=== PATIENT | male | born 1945 | race Caucasian/White ===

== ENCOUNTER → 2018-01-10 12:23 | Outpatient (CLI) | payer MEDICARE, SELFPAY ==
--- NOTE | 2018-01-10 12:26 | CT_ITS ---
STUDY: CT CHEST WITH CONTRAST REASON FOR EXAM: Male, 72 years old. LUNG CA-CHEMO CHECK UP, COPD, EMPHYSEMA, HEART STENTS, HTN RADIATION DOSAGE (If Supplied By Facility): CTDIvol = ( 12.4 ) mGy, DLP = ( 449.08 ) mGycm TECHNIQUE: Transaxial imaging was performed following intravenous administration of 100 ml of Isovue 300 contrast material. Individualized dose optimization techniques were used for this CT. COMPARISON: 10.08.17 FINDINGS: There is a 9.1 mm left upper lobe nodule. There is a 4.9 mm left lower lobe nodule. There are emphysematous changes of the lungs with emphysematous blebs. There is no demonstrated pleural abnormality. There are calcifications of the coronary arteries. Normal mediastinum. Normal hilar regions. Normal enhanced pulmonary arteries. There is atherosclerotic tortuosity of the aortic arch and descending thoracic aorta. There are multi-level degenerative changes of the thoracic spine. There is a lytic lesion in the left humeral head. This appears stable. CT/Chest WITH Contrast IMPRESSION: Stable pulmonary nodules. Stable lesion in the left humerus. Electronically Signed: Patel Nichols MD at 22:41 EDT , Service support ,
[2018-01-10 12:56] LABS: CREATININE FINGERSTICK 0.6 mg/dL (0.70-1.30); EGFR FINGERSTICK > 60.0000 mL/min (>60)
== END ==
PROVIDERS: Family Provider Family Medicine; PCP Family Medicine; Visit Provider Internal Medicine Medical Oncology
DX: C34.12 Malignant neoplasm of upper lobe, left bronchus or lung (principal)
CPT/HCPCS: 71260; Q9967

== ENCOUNTER → 2018-04-09 12:23 | Outpatient (CLI) | payer MEDICARE, SELFPAY ==
--- NOTE | 2018-04-09 12:25 | CT_ITS ---
STUDY: CT CHEST/THORAX WITH CONTRAST REASON FOR EXAM: Male, 72 years old. Lung cancer follow-up. RADIATION DOSAGE (If Supplied By Facility): CTDIvol = ( 10.32 ) mGy, DLP = ( 311.39 ) mGycm TECHNIQUE: Transaxial imaging was performed following intravenous administration of 75mL ml of Isovue 300 contrast material. Multiplanar coronal and sagittal images were reformatted. Individualized dose optimization techniques were used for this CT. COMPARISON: CT chest/thorax with IV contrast January 10, 2018. FINDINGS: Extensive diffuse emphysematous changes again seen throughout the lung jones. Mildly irregular, spiculated 1.85 x 1.4 x 1.2 cm nodular density in the lateral left upper lobe on series 4 image 52, series 602 image 136 is unchanged (differences in measurements since prior study reflect interobserver variability). On review of the prior exam, I don't see the 4.9 mm nodule referred to in the left lower lobe, and no left lower lobe nodule is apparent today. There is stable pleural-parenchymal scarring in the anterior-inferior right middle lobe. There is stable scarring with nodularity both in the right posterior and posteromedial costophrenic sulcus. Borderline bronchiectasis again noted. Focally prominent peribronchial thickening seen at the posterolateral proximal branching point of the basilar right lower lobe on series 4 images 72-73. There is no demonstrated pleural abnormality. Normal heart and pericardium. There are calcifications of the coronary arteries. Normal mediastinum. Normal hilar regions. Normal enhanced pulmonary arteries. There is atherosclerotic calcification of the aortic arch, proximal brachiocephalic arteries, and descending thoracic aorta, continuing into the visualized upper abdominal aorta. There is demineralization of the thoracic spine. There are multi-level degenerative changes of the visualized cervical spine. There are mild degenerative changes of the midthoracic spine. There is stable degenerative arthrosis of the left shoulder, with lobulated, irregular ossific densities projecting in the adjacent medial soft tissues, consistent with chronic calcific bursitis. Relative lucency in the right humeral head with cortical sclerosis but endosteal scalloping is also unchanged. There is no demonstrated abnormality of the visualized upper abdomen. CT/Chest WITH Contrast IMPRESSION: Stable enhanced CT Chest examination, as described. Electronically Signed: Reji Tran MD at 13:56 EDT , Service support ,
[2018-04-09 12:36] LABS: CREATININE FINGERSTICK 0.8 mg/dL (0.70-1.30)
== END ==
PROVIDERS: Family Provider Family Medicine; PCP Family Medicine; Visit Provider Internal Medicine Medical Oncology
DX: C34.12 Malignant neoplasm of upper lobe, left bronchus or lung (principal)
CPT/HCPCS: 71260; Q9967

== ENCOUNTER → 2018-10-14 13:32 | Outpatient (CLI) | payer MEDICARE, SELFPAY ==
--- NOTE | 2018-10-14 13:42 | CT_ITS ---
HISTORY: LUNG CA EXAM/TECHNIQUE: CT Chest W/O Contrast: COMPARISON: Several previous CTs of the chest, most recent 04/09/18. FINDINGS: # of images incl. paperwork: 811 Irregular, spiculated left upper lobe nodule measures 1.8 x 1.4 x 1.2 cm, not significantly changed given differences in technique. No new nodules are evident. Extensive severe emphysema and scattered areas of mild pleural-parenchymal scarring again demonstrated. Also similar to prior is focally prominent peribronchial thickening in the right lower lobe, best seen on coronal images 175-185. Heart size remains normal. Atherosclerosis including of the coronary arteries again demonstrated. No thoracic aortic dissection. No apparent adenopathy. Calcified right hilar lymph nodes again demonstrated. No acute osseous abnormality. Moderate degenerative changes of the left shoulder with chronic calcific bursitis again demonstrated. CT/Chest without Contrast IMPRESSION: No significant change compared to previous. Unchanged left upper lobe nodule and severe emphysema. Individualized dose optimization techniques were used for this CT. at 1422 Reported and signed by: Elmer Gillis MD Electronically Signed: Elmer Gillis, at 14:21 EST Tel , Service support ,
== END ==
PROVIDERS: Family Provider Family Medicine; PCP Family Medicine; Referring Provider Internal Medicine Medical Oncology; Visit Provider Internal Medicine Medical Oncology
DX: C34.90 Malignant neoplasm of unspecified part of unspecified bronchus or lung (principal)
CPT/HCPCS: 71250

== ENCOUNTER → 2019-04-17 14:35 | Outpatient (CLI) | payer MEDICARE, SELFPAY ==
[2019-01-14 09:40] VITALS: BMI 24.0
--- NOTE | 2019-04-17 14:37 | CT_ITS ---
STUDY: CT CHEST/THORAX WITH CONTRAST REASON FOR EXAM: Male, 73 years old. Lung cancer follow-up. History of emphysema/COPD and coronary stents. RADIATION DOSAGE (If Supplied By Facility): CTDIvol = ( 10.69 ) mGy, DLP = ( 342.07 ) mGycm TECHNIQUE: Transaxial imaging was performed following intravenous administration of 100 IV Isovue 300. Multiplanar coronal and sagittal images were reformatted. Individualized dose optimization techniques were used for this CT. COMPARISON: Noncontrast CT chest October 14, 2018. FINDINGS: The lungs are hyperexpanded and emphysematous changes are again seen throughout the lung jones. There is stable focal scarring with an element of nodularity in the posterior and posterior medial periphery of the basilar right lower lobe. Lobulated and spiculated 12 x 6.5 x 17.5 mm nodule in the lateral periphery of the left upper lobe with the level of the aortopulmonary window is unchanged. Stable 5 mm calcified granuloma in the posterior medial periphery of the right upper lobe near the pleural fissure. There is no demonstrated pleural abnormality. Normal heart and pericardium. There are calcifications of the coronary arteries. Normal mediastinum. Normal hilar regions. Normal enhanced pulmonary arteries. There is stable atherosclerotic calcification of the aortic arch, proximal brachiocephalic arteries, and descending thoracoabdominal aorta. No demonstrated aneurysm. Occasional small, well-corticated vertebral endplate invaginations consistent with benign Schmorl's nodes are evident. There is stable severe osteoarthritic degenerative change of the left shoulder. Lobulated ossific densities below the shoulder joint are consistent with chronic ossific bursitis, and there is a fluid-filled bursa or distended joint capsule along the anterior margin of the left shoulder. There is no demonstrated abnormality of the visualized upper abdomen. CT/Chest WITH Contrast IMPRESSION: 1. Stable spiculated nodule in the lateral left upper lobe. 2. Hyperinflation with diffuse emphysematous changes again noted. Focal scarring in the right lung base unchanged. 3. Calcified granuloma again seen in the posterior medial right upper lobe. 4. Atherosclerotic vascular calcifications present. 5. Chronic ossific bursitis of the left shoulder, as noted. Electronically Signed: Reji Tran MD at 15:30 EDT , Service support ,
[2019-04-17 14:56] LABS: CREATININE FINGERSTICK 0.8 mg/dL (0.70-1.30); EGFR FINGERSTICK > 60.0000 mL/min (>60)
== END ==
PROVIDERS: Family Provider Family Medicine; PCP Family Medicine; Referring Provider Internal Medicine Medical Oncology; Visit Provider Internal Medicine Medical Oncology
DX: C34.12 Malignant neoplasm of upper lobe, left bronchus or lung (principal)
CPT/HCPCS: 71260; Q9967

== ENCOUNTER → 2020-04-21 13:19 | Outpatient (CLI) | payer MEDICARE, MEDICAID, SELFPAY ==
[2019-12-30 09:25] VITALS: BMI 21.8
--- NOTE | 2020-04-21 13:21 | CT_ITS ---
STUDY: CT CHEST WITH CONTRAST REASON FOR EXAM: Male, 74 years old. LUNG CA MONITORING RADIATION DOSAGE (If Supplied By Facility): CTDIvol = ( 10.135 ) mGy, DLP = ( 287.13 ) mGycm TECHNIQUE: Transaxial imaging was performed following intravenous administration of IV 100mL Isovue-370. Multiplanar coronal and sagittal images were reformatted. Individualized dose optimization techniques were used for this CT. COMPARISON: Comparison is made with prior examination dated 04/17/2019. FINDINGS: Hyperinflation. Diffuse emphysematous changes more prominent in the upper lobes with bullous formation. No pulmonary consolidation is seen. Stable appearance of the 12 mm x 6.5 mm x 17.5 mm spicular nodule in the lateral aspect of the left upper lobe as seen on axial image #57 and coronal image #125. Stable 5 mm calcified granuloma in the posterior medial aspect of the right upper lobe abutting the pleural surface. There is no demonstrated pleural abnormality. There are calcifications of the coronary arteries. Normal mediastinum. Normal hilar regions. Normal enhanced pulmonary arteries. There is atherosclerotic calcification of the aortic arch . There are multi-level degenerative changes of the thoracic spine. 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 There is no demonstrated abnormality of the visualized upper abdomen. CT/Chest WITH Contrast IMPRESSION: Stable examination. Electronically Signed: Geo Medel, at 14:30 EDT , Service support ,
[2020-04-21 13:41] LABS: CREATININE FINGERSTICK 0.6 mg/dL (0.70-1.30)
[2020-04-21 14:10] LABS: Absolute Lymphocyte Count 0.97 X10^3/uL (0.83-4.51); Absolute Neutrophil Count 5.4 X10^3/uL (2.0-7.7); Basophil# 0.06 X10^3/uL; Basophil% 0.8 % (0-1); Eosinophil# 0.06 X10^3/uL; Eosinophils% 0.8 % (0-5); Hematocrit 36.1 % (40-54); Lymphocyte # 0.97 X10^3/ul (4.0); Lymphocyte % 13.4 % (19-41); Mean Corp Hgb Conc 33.2 g/dL (32-36); Mean Corpuscular Hgb 31.7 pg (27.0-32.0); Mean Corpuscular Volume 95.5 fL (80-94); Mean Platelet Vol. 9.5 fl (6.2-12.0); Monocyte# 0.65 X10^3/uL; NRBC Flagged by Analyzer 0 % (0-5); Neutrophil # 5.44 X10^3/uL (2.7-7.7); Neutrophil % 75.4 % (47-70); Platelet Count 224 K/mm3 (150-450); RBC Distribution Width SD 45.1 fl (35.1-43.9); Red Blood Count 3.78 M/mm3 (4.6-6.2); White Blood Count 7.2 K/mm3 (4.4-11.0)
[2020-04-21 14:24] LABS: AST(SGOT) 17 U/L (15-37); Alanine Aminotransfer ALT/SGPT 21 U/L (16-61); Albumin, Serum 3.3 g/dL (3.2-5.0); Alkaline Phosphatase 84 U/L (45-117); Anion Gap 3 (5-15); BUN 22 mg/dL (7-18); BUN/Creat Ratio 25.1 RATIO (10-20); Calcium,Total 8.4 mg/dL (8.5-10.1); Chloride 105 mmol/L (98-107); Creatinine, Serum 0.88 mg/dL (0.70-1.30); EST Glomerular Filtration Rate 90 mL/min (>60); Est Glom Filt Rate - Afr Amer 109 mL/min (>60); Globulin 3.2 g/dL (2.2-4.2); Glucose 91 mg/dL (74-106); LDH 178 U/L (87-241); Potassium 4.1 mmol/L (3.5-5.1); Protein, Total 6.5 g/dL (6.4-8.2); Sodium Level 138 mmol/L (136-145)
== END ==
PROVIDERS: PCP Family Medicine; Referring Provider Internal Medicine Medical Oncology; Visit Provider Internal Medicine Medical Oncology
DX: C34.12 Malignant neoplasm of upper lobe, left bronchus or lung (principal); Z85.118 Personal history of other malignant neoplasm of bronchus and lung
CPT/HCPCS: 36415; 71260; 80053; 83615; 85025; Q9967; A4216

== ENCOUNTER 2020-11-28 11:27 | Inpatient (IN) | payer MEDICARE, MEDICAID, SELFPAY ==
[2020-06-29 14:13] VITALS: BMI 21.7
[2020-11-28] VITALS (12 sets, daily range): BP systolic 147–178; BP diastolic 78–96; PULSE 66–84; RESP 18–24; TEMP 36.2–37; O2SAT 96–100; BMI 28.5; BMI 27.3; BMI 27.4
--- NOTE | 2020-11-28 11:44 | EKG12_ITS ---
Test Reason : SOB Blood Pressure : / mmHG Vent. Rate : 065 BPM Atrial Rate : 065 BPM P-R Int : 114 ms QRS Dur : 088 ms QT Int : 380 ms P-R-T Axes : 077 080 069 degrees QTc Int : 395 ms Normal sinus rhythm Nonspecific ST abnormality Abnormal ECG Confirmed by STEVE MEZA, BAILEE ([id number]), editorial assistant SUSAN STANLEY ([id number]) on 12/01/2020 10:00:37 AM Referred By: DIAN Confirmed By:BAILEE WILSON MD
--- NOTE | 2020-11-28 11:44 | RAD_ITS ---
STUDY: X-RAY CHEST REASON FOR EXAM: Male, 75 years old. Shortness of breath TECHNIQUE: Portable AP upright chest COMPARISON: CT chest 04/21/2020. FINDINGS: Prominent pulmonary hyperlucency and hyperinflation with hemidiaphragm flattening consistent with COPD/emphysema without acute infiltrate, effusion, pneumothorax or suspicious focal lesion. Normal cardiomediastinal silhouette, arnold and pleural margins. No acute osseous process. 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 RAD/Chest 1 View (Portable) IMPRESSION: COPD/emphysema without acute superimposed cardiopulmonary process. Electronically Signed: Glenn Marquez MD at 13:25 EDT Tel , Service support ,
[2020-11-28 12:01] LABS: Absolute Lymphocyte Count 0.55 X10^3/uL (0.83-4.51); Absolute Neutrophil Count 11.7 X10^3/uL (2.0-7.7); Basophil# 0.05 X10^3/uL; Basophil% 0.4 % (0-1); Eosinophil# 0.01 X10^3/uL; Eosinophils% 0.1 % (0-5); Hematocrit 39.7 % (40-54); Hemoglobin 12.9 g/dL (13.0-16.5); Lymphocyte # 0.55 X10^3/ul (4.0); Lymphocyte % 4.1 % (19-41); Mean Corp Hgb Conc 32.5 g/dL (32-36); Mean Corpuscular Hgb 32.6 pg (27.0-32.0); Mean Corpuscular Volume 100.3 fL (80-94); Mean Platelet Vol. 9.7 fl (6.2-12.0); Monocyte% 8.8 % (0-10); NRBC Flagged by Analyzer 0 % (0-5); Neutrophil # 11.73 X10^3/uL (2.7-7.7); Neutrophil % 86.3 % (47-70); POSITIVE DIFFERENTIAL YES; Platelet Count 268 K/mm3 (150-450); RBC Distribution Width CV 12.4 % (11.6-14.6); RBC Distribution Width SD 46.3 fl (35.1-43.9); Red Blood Count 3.96 M/mm3 (4.6-6.2); White Blood Count 13.6 K/mm3 (4.4-11.0)
[2020-11-28] MEDS: Ipratropium/Albuterol Sulfate 3 ML AMPUL.NEB INHALATION ×2 (12:04→17:58)
[2020-11-28 12:09] LABS: Differential Indicated SCAN CRITERIA MET
[2020-11-28 12:10] LABS: Anion Gap 3 (5-15); BUN 23 mg/dL (7-18); BUN/Creat Ratio 25.9 RATIO (10-20); Calcium,Total 9.1 mg/dL (8.5-10.1); Chloride 92 mmol/L (98-107); Creatinine, Serum 0.89 mg/dL (0.70-1.30); EST Glomerular Filtration Rate 88 mL/min (>60); Est Glom Filt Rate - Afr Amer 107 mL/min (>60); Estimated Creatinine Clearance 47.94 ml/min; Glucose 168 mg/dL (74-106); Potassium 4.5 mmol/L (3.5-5.1); Sodium Level 135 mmol/L (136-145)
[2020-11-28 12:12] LABS: Lactic Acid 1.3 mmol/L (0.4-1.9)
[2020-11-28] MEDS: MethylPREDNISolone 125 MG/2 ML Vial IV (12:24)
[2020-11-28 12:45] LABS: Macrocytosis RARE; Platelet Estimate ADEQUATE (ADEQ)
--- NOTE | 2020-11-28 13:21 | ED.DCSUM_ITS ---
- ER Visit Summary Date of Service: 11/28/20 Chief Complaint: Shortness of breath History of Present Illness: The patient is a [address] King and Dr. Swanson. He has a history of COPD and lung cancer. He is on 6 L of home O2. He has chronic shortness of breath is gotten worse over the past 2 weeks. His daughter reports that he is used a months worth of albuterol nebulized treatments as well as his MDI in the past 2 weeks. Patient reports that shortness of breath is severe at worst and mild currently. Is worsened by walking around. He is taking his albuterol with minimal relief. He denies cough, fever, chills, or chest pain. Physical Examination: Vitals: 98.0, 170/87, 72, 18, 100% on a nonrebreather. General: Well-developed, but cachectic. Head: Normocephalic atraumatic. Neck: Supple, no lymphadenopathy. No JVD. Nontender. Cardiovascular: Regular rate and rhythm. 2 out of 6 systolic murmur. Respiratory: Moderate respiratory distress. Mild wheezing bilaterally with greatly decreased air movement. Abdominal: Soft, nontender, nondistended, normal bowel sounds. No guarding, rebound, or peritoneal signs. Back: Nontender. Extremities: Nontender, no edema. Skin: Normal color, no rash. Neurologic: Alert and oriented ?3. Cranial nerves II through XII are intact. Normal strength and sensation. Psych: Normal affect. Test Results: EKG is sinus at [address] changes. Is unchanged from November 2016. Troponin is negative. Lactic acid is 1.3. Covid is negative. Chem-7 shows a sodium 135, chloride 92, CO2 of 40, glucose 168. CBC shows a white count of 13.6 with an H&H of 12.9 39.7, stable neutrophils 86, lymphocytes 4. Clinical Impression(s) from Imaging Studies Chest X-Ray 11/28/20 11:44 IMPRESSION: COPD/emphysema without acute superimposed cardiopulmonary process. Electronically Signed: Glenn Marquez MD at 13:25 EDT Tel , Service support , Emergency Department Course and Treatment: Patient had an IV placed. He was given Solu-Medrol IV. He was given albuterol Atrovent aerosols. His wheezing has actually worsened after this, but he has better air movement. Treatment Plan: Patient is on 6 L of home O2. When the squad arrived his pulse ox was in the 70s on this. He is now resting more comfortably but will require hospitalization for further evaluation and treatment. Disposition: Admitted in improved condition. Impression: 1. COPD exacerbation. 2. Acute on chronic respiratory failure. This note was generated with [employer] dictation software. It may contain incorrect words, spelling, and punctuation that were not noted in review of the chart prior to signing ED Disposition - Plan for ED Patient: Referrals: Michell Escamilla [employer] [facility] SENIOR MANAGER, [employer] [facility] [facility]IOR MANAGER-[facility] [Primary Care Provider] -
[2020-11-28] MEDS: Albuterol 2.5 MG/3 ML VIAL.NEB. INHALATION ×2 (13:31→22:23)
--- NOTE | 2020-11-28 13:38 | HP.PCM_ITS ---
History of Present Illness Date of Admission: 11/28/20 Chief Complaint: shortness of breath The patient is a 75 year old M with a PMH as outlined, including COPD and lung cancer s/p chemotherapy 2 years ago. He was admitted through the ED on 11/28/2020 with a complaint of worsening shortness of breath. Patient has chronic hypoxic respiratory failure due to COPD and is usually on 6 L of oxygen at home. He said over the past few weeks, his shortness of breath had been getting worse with associated wheezing and coughing. He used about a months worth of nebulized aerosols within the last 2 weeks and was also using his inhaler frequently. However shortness of breath did not improve and was worsened with exertion. He denied any fever or chills or chest pain, palpitations, dizziness, nausea vomiting or diarrhea. Patient still continues to smoke and states he smokes about 9 cigarettes a week. Review of symptoms otherwise negative. On arrival in the ED, he was saturating 77 quiet nonrebreather mask. His saturation therefore increased into the 90s while on the nonrebreather mask at time of review, he was on his 6 L of oxygen by nasal cannula. Vitals show temperature of 97.9 with blood pressure 160/90, pulse rate of 66 and respiratory rate of 20. He was saturating at 98% on 6 L of oxygen. Chemistry showed bicarb of 14 with sodium of 135 and creatinine of 0.89. Lactic acid was 1.3 initial troponin was negative. CBC showed hemoglobin of 12.9 and WBC of 13.6 as well as platelets of 68. Of note, patient had been put on 2.5 mg of prednisone daily by his primary care provider. Chest x-ray showed COPD and emphysema without acute superimposed cardiopulmonary process. He has been admit arleen to manage for acute on chronic hypoxic respiratory failure due to COPD exacerbation. Past Medical History Past Medical History (Chronic Problems): Chronic Problems (Last Reviewed 05/05/20 @ 14:56 by Nai Stanley) Chronic hypoxemic respiratory failure (Chronic) Shortness of breath (Chronic) History of lung cancer (Chronic) COPD (chronic obstructive pulmonary disease) (Chronic) CAD (coronary artery disease) (Chronic) HLD (hyperlipidemia) (Chronic) Small cell lung cancer (Chronic) Wernicke encephalopathy (Chronic) Alcohol abuse (Chronic) Tobacco abuse (Chronic) Hypertension (Chronic) Benign hypertension (Chronic) Medical History: Medical History (Last Reviewed 05/05/20 @ 14:56 by Nai Stanley) Shortness of breath (Chronic) R06.02 History of lung cancer (Chronic) Z85.118 Lactic acidosis (Acute) E87.2 Acute kidney injury (Acute) N17.9 Acute respiratory failure (Acute) J96.00 COPD (chronic obstructive pulmonary disease) (Chronic) J44.9 CAD (coronary artery disease) (Chronic) I25.10 Educational circumstance (Acute) Z55.9 HLD (hyperlipidemia) (Chronic) E78.5 Small cell lung cancer (Resolved) C34.90 Small cell lung cancer (Chronic) C34.90 Mass of left lung (Acute) R91.8 Pneumothorax after biopsy (Acute) J95.811 Pneumothorax of left lung after biopsy (Acute) J95.811 Wernicke encephalopathy (Chronic) E51.2 Alcohol abuse (Chronic) F10.10 Tobacco abuse (Chronic) Z72.0 Hypertension (Chronic) I10 Haemophilus influenzae pneumonia (Acute) J14 Benign hypertension (Chronic) I10 Allergies No Known Allergies Allergy (Verified 06/29/20 14:17) Home Medications: Ambulatory Orders Medication Instructions Recorded Nitroglycerin 0.4 mg SL PRN PRN 10/27/16 Atenolol [Tenormin (beta mary)] 50 mg PO DAILY 10/30/16 Albuterol Aerosols [Ventolin 2.5 mg INHALATION Q6H PRN PRN 05/31/17 Aerosols] albuterol sulfate 2.5 mg INHALATION Q4H PRN #180 ml 05/09/19 albuterol sulfate 90 mcg/actuation 2 puff INHALATION Q4H PRN #8.5 g 06/29/20 aerosol inhaler budesonide-formoterol HFA 160 2 puff INHALATION BID #1 device 06/29/20 mcg-4.5 mcg/actuation aerosol inhaler ipratropium 0.5 mg-albuterol 3 mg 3 ml INHALATION Q4H #120 vial 06/29/20 (2.5 mg base)/3 mL nebulization soln Prednisone 2.5 mg PO DAILY 11/28/20 Surgical History: Surgical History (Last Reviewed 05/05/20 @ 14:56 by Nai Stanley) H/O repair of rotator cuff Z98.890 History of heart artery stent Z95.5 Surgical History: - - Cardiac stents. Psychiatric History: No pertinent psych hx Smoking Status: Light Smoker (<10/day) Tobacco Use: Cigarettes Alcohol: None - *Family History Maternal Family History: Family History (Last Reviewed 05/05/20 @ 14:57 by Nai Stanley) Mother Emphysema lung Father Heart disease History Items: No pertinent history Paternal Family History: Family History (Last Reviewed 05/05/20 @ 14:57 by Nai Stanley) Mother Emphysema lung Father Heart disease History Items: Hypertension Review of Systems Constitutional: Reports: Malaise, Weakness, Fatigue. Denies: Anorexia, Chills, Fever Eyes: Denies: Blurred vision HEENT: Denies: Head Aches, Sinus Congestion, Sinus Drainage Cardiovascular: Denies: Chest Pain, Chest Pressure, Chest Tightness, Palpitations Respiratory: Reports: Cough, Shortness of Breath, Shortness of breath at rest, Shortness of breath upon exertion, Wheezing. Denies: Sputum production Gastrointestinal: Denies: Abdominal Pain, Nausea, Vomiting Genitourinary: Denies: Dysuria Musculoskeletal: Denies: Joint Pain, Joint Tenderness Skin: Denies: Rash, Wounds Neurological: Denies: Numbness, Tingling, Focal weakness Psychiatric: Denies: Anxiety, Depression, Homicidal Ideations, Suicidal Ideations Hematologic/ Lymphatic: Denies: Easy Bruising, Easy Bleeding VTE Information - Inpt Only VTE Present on Admission: No VTE Pharm Prophylaxis ordered?: Yes - Physical Exam Vitals/I&O's: Vital Signs Temp Pulse Resp BP Pulse Ox 98 F 72 18 178/87 H 100 11/28/20 13:08 11/28/20 13:08 11/28/20 13:08 11/28/20 13:08 11/28/20 13:08 Oxygen Flow Rate (L/min) 6 Oxygen Delivery Method Nasal Cannula Weight: 105 lb 13.15 oz Body Mass Index (BMI) 28.5 General: Alert, Oriented x3, Cooperative, No apparent distress HEENT: Atraumatic, PERRLA, EOMI, Normocephalic Oral: Dry Mucosa Neck: Supple, No JVD, Negative Carotid Bruits Lungs: - - lungs sound very tight. On 6L of oxygen by nasal canula. moderate wheezing in all lung jones, no crackles. Cardiovascular: Regular rate, Regular Rhythm, Normal S1, Normal S2, No murmurs Abdomen: Bowel Sounds Present, Soft, Non Tender, Non-Distended, No Hepato- splenomegaly Extremities: No clubbing, No cyanosis, No edema, Capillary Refill Less than 3 Seconds Skin: No rashes, No breakdown Musculoskeletal: No Tenderness to Palpation of Joints or Extremities Lymphatic: No Cervical, Supraclavicular, or Inguinal Adenopathy Neurological: Cranial nerves II-XII grossly intact, Neuro grossly intact, Motor Exam 5/5 strength throughout Psych/Mental Status: Normal Affect, Appropriate, Alert and oriented to time, place, person, mood and affect Microbiology Past 72 Hours 11/28/20 12:20 Mucosa - Nose SARS-CoV-2 Antigen (Rapid) - Final Laboratory Results 11/28/20 11:30: WBC 13.6 H, RBC 3.96 L, Hgb 12.9 L, Hct 39.7 L, MCV 100.3 H, MCH 32.6 H, MCHC 32.5, RDW Std Deviation 46.3 H, RDW Coeff of Jaime 12.4, Plt Count 268, MPV 9.7, Immature Gran % (Auto) 0.300, Neut % (Auto) 86.3 H, Lymph % (Auto) 4.1 L, J[place] % (Auto) 8.8, Eos % (Auto) 0.1, Baso % (Auto) 0.4, Absolute Neuts (auto) 11.7 H, Absolute Lymphs (auto) 0.55 L, Nucleated RBC % 0, Platelet Estimate ADEQUATE, Macrocytosis RARE 11/28/20 11:30: Sodium 135 L, Potassium 4.5, Chloride 92 L, Carbon Dioxide 40.0 H, Anion Gap 3 L, BUN 23 H, Creatinine 0.89, Estim Creat Clear Calc 47.94, Est GFR (MDRD) Af Amer 107, Est GFR (MDRD) Non-Af 88, BUN/Creatinine Ratio 25.9 H, Glucose 168 H, Calcium 9.1, Troponin I < 0.015 11/28/20 11:30: Lactic Acid 1.3 Diagnostic Data Chest X-Ray 11/28/20 11:44 IMPRESSION: COPD/emphysema without acute superimposed cardiopulmonary process. Electronically Signed: Glenn Marquez MD at 13:25 EDT Tel , Service support , Current Medications Sodium Chloride () 500 mls @ 999 mls/hr IV .Q31M ONE Last Admin: 11/28/20 12:24 Dose: 999 mls/hr Documented by: Assessment/Plan All Active Problems (Last Reviewed 05/05/20 @ 14:56 by Nai Stanley) Lactic acidosis (Acute) Acute kidney injury (Acute) Acute respiratory failure (Acute) Educational circumstance (Acute) Small cell lung cancer (Resolved) Mass of left lung (Acute) Pneumothorax after biopsy (Acute) Pneumothorax of left lung after biopsy (Acute) Haemophilus influenzae pneumonia (Acute) 75-year-old male admitted with a complaint of shortness of breath. #Acute on chronic hypoxic respiratory failure due to COPD exacerbation * admit to Med surg with telemetry * Titrate oxygen to maintain saturation above 90%. * Breathing treatments with bronchodilators. * IV solumedroll 40 mg every 8 * Will hold off on antibiotics for now. If patient does not improve, will consider antibiotic addition. 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 * #Acute on chronic COPD exacerbation: * as above. * On budesonide formoterol. #History of lung cancer * Dispose chemotherapy. Did not have radiation. Still smokes. Counseled to quit. * #Nicotine dependence: Still smokes about 9 cigarettes a week. Counseled to quit. Nicotine patch 14 mg daily. DVT prophylaxis: Lovenox CODE STATUS: Full code * Patient counseled extensively about different types of CODE STATUS including full code, DNR CCA and DNR CCA. * Patient elects to be full code. * Total [id number] time 17 minutes. Inpatient E&M: 48404 Init Hosp L3 Procedures: 16889 Advncd Care Plan 30 Min
--- NOTE | 2020-11-28 13:53 | NURSING ---
MED SURG [facility] COPD EXAC
[2020-11-28] MEDS: 0.9% Normal Saline 1,000 ML 75 ML IV (17:41)
[2020-11-28] MEDS: guaiFENesin 1,200 MG Tablet 1200 MG PO (21:12)
[2020-11-28] MEDS: 0.9% Saline Lock 10 ML Syringe IV (21:12)
[2020-11-29] VITALS (19 sets, daily range): BP systolic 117–138; BP diastolic 62–81; PULSE 59–96; RESP 16–20; TEMP 36.5–36.9; O2SAT 94–100
[2020-11-29] MEDS: 0.9% Saline Lock 10 ML Syringe IV ×2 (06:08→13:14)
[2020-11-29] MEDS: 0.9% Normal Saline 1,000 ML 75 ML IV (06:08)
[2020-11-29 06:33] LABS: Absolute Lymphocyte Count 0.49 X10^3/uL (0.83-4.51); Absolute Neutrophil Count 7.7 X10^3/uL (2.0-7.7); Basophil# 0.01 X10^3/uL; Basophil% 0.1 % (0-1); Hematocrit 35.1 % (40-54); Hemoglobin 11.3 g/dL (13.0-16.5); Lymphocyte # 0.49 X10^3/ul (4.0); Lymphocyte % 5.5 % (19-41); Mean Corp Hgb Conc 32.2 g/dL (32-36); Mean Corpuscular Hgb 31.7 pg (27.0-32.0); Mean Corpuscular Volume 98.3 fL (80-94); Mean Platelet Vol. 9.8 fl (6.2-12.0); Monocyte# 0.65 X10^3/uL; Monocyte% 7.3 % (0-10); NRBC Flagged by Analyzer 0 % (0-5); Neutrophil # 7.71 X10^3/uL (2.7-7.7); Neutrophil % 86.7 % (47-70); POSITIVE DIFFERENTIAL YES; Platelet Count 204 K/mm3 (150-450); RBC Distribution Width CV 12.6 % (11.6-14.6); RBC Distribution Width SD 45.4 fl (35.1-43.9); Red Blood Count 3.57 M/mm3 (4.6-6.2); White Blood Count 8.9 K/mm3 (4.4-11.0)
[2020-11-29 06:37] LABS: Differential Indicated SCAN CRITERIA MET
[2020-11-29 06:56] LABS: Anion Gap 4 (5-15); BUN 19 mg/dL (7-18); BUN/Creat Ratio 29.6 RATIO (10-20); Calcium,Total 8.5 mg/dL (8.5-10.1); Chloride 98 mmol/L (98-107); Creatinine, Serum 0.64 mg/dL (0.70-1.30); EST Glomerular Filtration Rate 129 mL/min (>60); Est Glom Filt Rate - Afr Amer 156 mL/min (>60); Estimated Creatinine Clearance 40.89 ml/min; Glucose 103 mg/dL (74-106); Potassium 4.2 mmol/L (3.5-5.1); Sodium Level 135 mmol/L (136-145)
[2020-11-29] MEDS: Ipratropium/Albuterol Sulfate 3 ML AMPUL.NEB INHALATION ×5 (07:19→23:10)
--- NOTE | 2020-11-29 08:51 | PN_ITS ---
Subjective: Chief complaint: Follow-up after admission for acute COPD exacerbation. Patient seen and examined. No acute events overnight. Today, he is feeling little bit better, shortness of breath started to improve slowly. Reported cough without sputum production. Denied any chest pain, denied fever or chills. Remains on 6 L of oxygen which is his baseline at home. Other vital signs are stable. - Physical Exam Vitals/I&O's: Vital Signs Temp Pulse Resp BP Pulse Ox 97.7 F L 71 20 H 131/81 H 98 11/29/20 03:23 11/29/20 07:19 11/29/20 07:19 11/29/20 03:23 11/29/20 07:19 Oxygen Flow Rate (L/min) 6 Oxygen Delivery Method Nasal Cannula Weight: 101 lb 6.602 oz Body Mass Index (BMI) 27.3 Intake and Output for Last 24 Hours 11/27/20 11/28/20 11/29/20 22:59 23:59 23:59 Intake Total 933.75 / 933.75 Output Total 500 / 500 Balance 433.75 / 433.75 General: Alert, Oriented x3, Cooperative, - - Minimally short of breath. HEENT: Atraumatic, PERRLA, EOMI, Normocephalic Oral: Moist Mucosa, No Gingival or Mucosal Lesions/ Ulcerations Neck: Supple, No JVD, Negative Carotid Bruits, Trachea Midline, Thyroid Normal Size and Texture Lungs: No rhonchi, No rales, Diminished, Wheezes, - - Decreased breath sounds bilaterally, expiratory wheezes. Cardiovascular: Regular rate, Regular Rhythm, Normal S1, Normal S2, PMI Normal Abdomen: Bowel Sounds Present, Soft, Non Tender, Non-Distended, No Hepato- splenomegaly Extremities: No clubbing, No cyanosis, No edema Skin: No rashes, No breakdown Lymphatic: No Cervical, Supraclavicular, or Inguinal Adenopathy Neurological: Cranial nerves II-XII grossly intact, Motor Exam 5/5 strength throughout Psych/Mental Status: Normal Affect, Appropriate, Alert and oriented to time, place, person, mood and affect Microbiology Past 72 Hours 11/28/20 12:20 Mucosa - Nose SARS-CoV-2 Antigen (Rapid) - Final Laboratory Results 11/28/20 11:30: WBC 13.6 H, RBC 3.96 L, Hgb 12.9 L, Hct 39.7 L, MCV 100.3 H, MCH 32.6 H, MCHC 32.5, RDW Std Deviation 46.3 H, RDW Coeff of Jaime 12.4, Plt Count 268, MPV 9.7, Immature Gran % (Auto) 0.300, Neut % (Auto) 86.3 H, Lymph % (Auto) 4.1 L, [place] % (Auto) 8.8, Eos % (Auto) 0.1, Baso % (Auto) 0.4, Absolute Neuts (auto) 11.7 H, Absolute Lymphs (auto) 0.55 L, Nucleated RBC % 0, Platelet Estimate ADEQUATE, Macrocytosis RARE 11/28/20 11:30: Sodium 135 L, Potassium 4.5, Chloride 92 L, Carbon Dioxide 40.0 H, Anion Gap 3 L, BUN 23 H, Creatinine 0.89, Estim Creat Clear Calc 47.94, Est GFR (MDRD) Af Amer 107, Est GFR (MDRD) Non-Af 88, BUN/Creatinine Ratio 25.9 H, Glucose 168 H, Calcium 9.1, Troponin I < 0.015 11/28/20 11:30: Lactic Acid 1.3 11/29/20 05:50: WBC 8.9, RBC 3.57 L, Hgb 11.3 L, Hct 35.1 L, MCV 98.3 H, MCH 31.7, MCHC 32.2, RDW Std Deviation 45.4 H, RDW Coeff of Jaime 12.6, Plt Count 204, MPV 9.8, Immature Gran % (Auto) 0.400, Neut % (Auto) 86.7 H, Lymph % (Auto) 5.5 L, [place] % (Auto) 7.3, Eos % (Auto) 0.0, Baso % (Auto) 0.1, Absolute Neuts (auto) 7.7, Absolute Lymphs (auto) 0.49 L, Nucleated RBC % 0 11/29/20 05:50: Sodium 135 L, Potassium 4.2, Chloride 98, Carbon Dioxide 33.0 H, Anion Gap 4 L, BUN 19 H, Creatinine 0.64 L, Estim Creat Clear Calc 40.89, Est GFR (MDRD) Af Amer 156, Est GFR (MDRD) Non-Af 129, BUN/Creatinine Ratio 29.6 H, Glucose 103, Calcium 8.5 Clinical Impression(s) from Imaging Studies Chest X-Ray 11/28/20 11:44 IMPRESSION: COPD/emphysema without acute superimposed cardiopulmonary process. Electronically Signed: Glenn Marquez MD at 13:25 EDT Tel , Service support , Current Medications Acetaminophen (Acetaminophen 325 Mg Tablet) 650 mg PO Q6H PRN PRN PRN Reason: Pain Score 1-10/Temp > 100.7 F Albuterol Sulfate (Albuterol 2.5 Mg/3 Ml Vial.Neb.) 2.5 mg INHALATION Q2H PRN PRN PRN Reason: SOB &/OR WHEEZING Last Admin: 11/28/20 22:23 Dose: 2.5 mg Documented by: Albuterol/Ipratropium (Ipratropium/Albuterol Sulfate 3 Ml Ampul.Neb) 3 ml INHALATION Q4HWA.RT [facility] Last Admin: 11/29/20 07:19 Dose: 3 ml Documented by: Atenolol (Atenolol 50 Mg Tablet) 50 mg PO DAILY [facility] Enoxaparin Sodium (Enoxaparin 40 Mg/0.4 Ml Syringe) 40 mg SC DAILY [facility] Guaifenesin (Guaifenesin 1,200 Mg Tablet) 1,200 mg PO BID [facility] Last Admin: 11/28/20 21:12 Dose: 1,200 mg Documented by: Methylprednisolone (Methylprednisolone 40 Mg/Ml Vial) 40 mg IV Q8 [facility] Last Admin: 11/29/20 06:08 Dose: 40 mg Documented by: Nitroglycerin (Nitroglycerin (Inpatient Use) 0.4 Mg Tab.Subl) 0.4 mg SL Q5M PRN PRN Reason: CARDIAC/CHEST PAIN Ondansetron HCl (Ondansetron 4 Mg/2 Ml Vial) 4 mg IV Q8H PRN PRN PRN Reason: NAUSEA/VOMITING Sodium Chloride (0.9% Saline Lock 10 Ml Syringe) 10 - 40 ml IV UD PRN PRN Reason: SALINE FLUSH Last Admin: 11/29/20 06:08 Dose: 10 ml Documented by: Medical Necessity - Tobacco Use Smoking Status: Light Smoker (<10/day) Tobacco Use: Cigarettes Assessment/Plan This is a 75 years old male patient presented to the emergency room because of worsening shortness of breath, was admitted for COPD exacerbation and acute on chronic hypoxic respiratory failure. #1 acute COPD exacerbation: Chest x-ray reviewed, no acute findings. COVID-19 antigen was negative. Patient is on IV Solu-Medrol, DuoNeb and albuterol as needed. Currently, he is on 6 L of oxygen which is his baseline at home. He mentioned that his breathing is getting better but not at baseline. Routine blood work was reviewed, was unremarkable. Blood culture is pending. Pulmonology consulted. Plan to continue same treatment. #2 acute on chronic hypoxic respiratory failure: Secondary to COPD. He does not use oxygen at 6 L at baseline. On admission, patient was dyspneic, tachypneic and requiring higher flow oxygen. This morning, he is feeling better, he is down to 6 L which is his baseline at home. Plan as above. #3 hypertension: Blood pressure stable, continue atenolol. #4 history of small cell lung cancer: Status post chemotherapy. He has no active disease currently. Recommend follow-up with oncology as outpatient. #5 CAD status post stents: Stable, no complaints. Patient denied any chest pain, troponin is negative. He is only on atenolol. #6 DVT prophylaxis: Subcu Lovenox. This note was generated with [employer] dictation software. It may contain incorrect words, spelling, and punctuation that were not noted in checking the note before signing. Inpatient E&M: 47253 Subs Hosp L2
[2020-11-29] MEDS: Atenolol 50 MG Tablet PO (09:41)
[2020-11-29] MEDS: guaiFENesin 1,200 MG Tablet 1200 MG PO ×2 (09:41→22:35)
[2020-11-29] MEDS: Enoxaparin 40 MG/0.4 ML Syringe SC (09:42)
--- NOTE | 2020-11-29 10:16 | CON.PCM_ITS ---
Problem List (1) Chronic hypoxemic respiratory failure Status: Chronic (2) History of lung cancer Status: Chronic (3) COPD (chronic obstructive pulmonary disease) Status: Chronic Qualifiers: COPD type: unspecified COPD Qualified Code(s): J44.9 - Chronic obstructive pulmonary disease, unspecified (4) CAD (coronary artery disease) Status: Chronic (5) HLD (hyperlipidemia) Status: Chronic (6) Wernicke encephalopathy Status: Chronic (7) Tobacco abuse Status: Chronic (8) Hypertension Status: Chronic (9) Benign hypertension Status: Chronic Reason for Consult Date of Consultation: 11/29/20 Reason for Consultation: COPD exacerbation History of Present Illness: The patient is a 75 year old M, with past medical history listed below and well- known to our practice, who presented to [facility] on 11/28/2020 secondary to progressive shortness of breath and cough. Patient reportedly is on 6 L nasal cannula at baseline and has chronic shortness of breath that has progressed over the last 2 weeks. Patient has been using albuterol at home along with his MDI with some success. Patient states this was exacerbated by walking around and his symptoms had progressed to the point that albuterol was only providing minimal relief. Patient did have a cough, but denied any production. Patient was not reporting any chest pain, nominal pain, nausea or vomiting. No fevers have been reported. In the ER, patient was afebrile, but hypertensive at 170/87 and saturating 100% on a nonrebreather. Laboratory work-up showed an unchanged EKG, lactate of 1.3, bicarbonate of 40 and a glucose of 168. Patient did have a mild leukocytosis of 13.6 and H&H of 12.9/39.7. Chest x-ray showed only hyperinflation with no acute infiltrates. Patient was given aerosols, Solu-Medrol and supplemental oxygen and admitted to the floor for further evaluation. Since being moved to the hospital, patient reports subjectively much improved compared to previous. Patient is still having some shortness of breath with minimal exertion, but does not cough as much. Patient's oxygen has been improved back to 6 L nasal cannula. Patient states that he was desaturating into the 50s with ambulation at home. Patient was unable to increase his oxygen above 6 L. Patient does report that he continues to smoke. Patient is unclear on his last pulmonary function test. Patient does follow with Dr. Swanson at baseline. Review of systems otherwise negative from a constitutional, HEENT, respiratory, cardiovascular, GI, genitourinary, musculoskeletal, skin, neurologic, psychiatric and hematologic system unless stated above. Past Medical History Past Medical History (Chronic Problems): Chronic Problems (Last Updated 11/29/20 @ 08:[address] Christal Marie MD) Chronic hypoxemic respiratory failure (Chronic) History of lung cancer (Chronic) COPD (chronic obstructive pulmonary disease) (Chronic) CAD (coronary artery disease) (Chronic) HLD (hyperlipidemia) (Chronic) Small cell lung cancer (Chronic) Mass of left lung (Chronic) Wernicke encephalopathy (Chronic) Alcohol abuse (Chronic) Tobacco abuse (Chronic) Hypertension (Chronic) Benign hypertension (Chronic) Medical History: Medical History (Last Updated 11/29/20 @ 08:[address] Chrsital Marie MD) History of lung cancer (Chronic) Z85.118 COPD (chronic obstructive pulmonary disease) (Chronic) J44.9 CAD (coronary artery disease) (Chronic) I25.10 HLD (hyperlipidemia) (Chronic) E78.5 Small cell lung cancer (Chronic) C34.90 Mass of left lung (Chronic) R91.8 Wernicke encephalopathy (Chronic) E51.2 Alcohol abuse (Chronic) F10.10 Tobacco abuse (Chronic) Z72.0 Hypertension (Chronic) I10 Benign hypertension (Chronic) I10 Pneumothorax after biopsy (Inactive) J95.811 Pneumothorax of left lung after biopsy (Inactive) J95.811 Allergies No Known Allergies Allergy (Verified 06/29/20 14:17) Home Medications: Ambulatory Orders Medication Instructions Recorded Nitroglycerin 0.4 mg SL PRN PRN 10/27/16 Atenolol [Tenormin (beta mary)] 50 mg PO DAILY 10/30/16 Albuterol Aerosols [Ventolin 2.5 mg INHALATION Q6H PRN PRN 05/31/17 Aerosols] albuterol sulfate 2.5 mg INHALATION Q4H PRN #180 ml 05/09/19 albuterol sulfate 90 mcg/actuation 2 puff INHALATION Q4H PRN #8.5 g 06/29/20 aerosol inhaler budesonide-formoterol HFA 160 2 puff INHALATION BID #1 device 06/29/20 mcg-4.5 mcg/actuation aerosol inhaler ipratropium 0.5 mg-albuterol 3 mg 3 ml INHALATION Q4H #120 vial 06/29/20 (2.5 mg base)/3 mL nebulization soln Prednisone 2.5 mg PO DAILY 11/28/20 Surgical History: Surgical History (Last Reviewed 05/05/20 @ 14:56 by Nai Stanley) H/O repair of rotator cuff Z98.890 History of heart artery stent Z95.5 Surgical History: - - Cardiac stents. Psychiatric History: No pertinent psych hx Smoking Status: Light Smoker (<10/day) Tobacco Use: Cigarettes Alcohol: None - *Family History Maternal Family History: Family History (Last Reviewed 05/05/20 @ 14:57 by Nai Stanley) Mother Emphysema lung Father Heart disease History Items: No pertinent history Paternal Family History: Family History (Last Reviewed 05/05/20 @ 14:57 by Nai Stanley) Mother Emphysema lung Father Heart disease History Items: Hypertension Review of Systems Comment: See HPI Objective: All imaging was personally reviewed. Chest x-ray shows hyperinflation without obvious infiltrate. Since last pulmonary function test did show a partially reversible very severe large airways obstructive ventilatory defect resulting in air trapping with hyperinflation and a symmetric reduction diffusing capacity (FVC 92%, FEV1 33%, TLC 135%, RV 215%, DLCO 36%). Patient's last echocardiogram was completed in 2014 showing an EF of 65% with stage I diastolic dysfunction and elevated pulmonary artery pressure of 49 mmHg. - Physical Exam Vitals/I&O's: Vital Signs Temp Pulse Resp BP Pulse Ox 36.6 C 70 18 134/81 H 94 11/29/20 09:54 11/29/20 09:54 11/29/20 09:54 11/29/20 09:54 11/29/20 09:54 Oxygen Flow Rate (L/min) 6 Oxygen Delivery Method Nasal Cannula Weight: 46 kg Body Mass Index (BMI) 27.3 Intake and Output for Last 24 Hours 11/27/20 11/28/20 11/29/20 22:59 23:59 23:59 Intake Total 933.75 / 933.75 Output Total 500 / 500 Balance 433.75 / 433.75 General: Alert, Oriented x3, Cooperative, - - Mild conversational dyspnea. HEENT: Atraumatic, PERRLA, EOMI, Normocephalic, - - Slight scleral injection without icterus Oral: Moist Mucosa, No Gingival or Mucosal Lesions/ Ulcerations Neck: Supple, No Nodes, Trachea Midline, JVD, Right Lungs: No rhonchi, No rales, Diminished, Wheezes, - - Symmetric expansion Cardiovascular: Regular rate, Regular Rhythm, Normal S1, Normal S2, Murmur - Rated 2 out of 6 diastolic murmur at the left sternal border, No rub noted, No Gallop Abdomen: Bowel Sounds Present, Soft, Non Tender, Non-Distended Extremities: No cyanosis, No edema, Clubbing Skin: No rashes, No breakdown Musculoskeletal: No Tenderness to Palpation of Joints or Extremities Lymphatic: No Cervical, Supraclavicular, or Inguinal Adenopathy Neurological: Cranial nerves II-XII grossly intact, Neuro grossly intact, Motor Exam 5/5 strength throughout Psych/Mental Status: Alert and oriented to time, place, person, mood and affect Microbiology Past 72 Hours 11/28/20 12:20 Mucosa - Nose SARS-CoV-2 Antigen (Rapid) - Final Laboratory Results 11/28/20 11:30: WBC 13.6 H, RBC 3.96 L, Hgb 12.9 L, Hct 39.7 L, MCV 100.3 H, MCH 32.6 H, MCHC 32.5, RDW Std Deviation 46.3 H, RDW Coeff of Jaime 12.4, Plt Count 268, MPV 9.7, Immature Gran % (Auto) 0.300, Neut % (Auto) 86.3 H, Lymph % (Auto) 4.1 L, [place] % (Auto) 8.8, Eos % (Auto) 0.1, Baso % (Auto) 0.4, Absolute Neuts (auto) 11.7 H, Absolute Lymphs (auto) 0.55 L, Nucleated RBC % 0, Platelet Estimate ADEQUATE, Macrocytosis RARE 11/28/20 11:30: Sodium 135 L, Potassium 4.5, Chloride 92 L, Carbon Dioxide 40.0 H, Anion Gap 3 L, BUN 23 H, Creatinine 0.89, Estim Creat Clear Calc 47.94, Est G FR (MDRD) Af Amer 107, Est GFR (MDRD) Non-Af 88, BUN/Creatinine Ratio 25.9 H, Glucose 168 H, Calcium 9.1, Troponin I < 0.015 11/28/20 11:30: Lactic Acid 1.3 11/29/20 05:50: WBC 8.9, RBC 3.57 L, Hgb 11.3 L, Hct 35.1 L, MCV 98.3 H, MCH 31.7, MCHC 32.2, RDW Std Deviation 45.4 H, RDW Coeff of Jaime 12.6, Plt Count 204, MPV 9.8, Immature Gran % (Auto) 0.400, Neut % (Auto) 86.7 H, Lymph % (Auto) 5.5 L, [place] % (Auto) 7.3, Eos % (Auto) 0.0, Baso % (Auto) 0.1, Absolute Neuts (auto) 7.7, Absolute Lymphs (auto) 0.49 L, Nucleated RBC % 0 11/29/20 05:50: Sodium 135 L, Potassium 4.2, Chloride 98, Carbon Dioxide 33.0 H, Anion Gap 4 L, BUN 19 H, Creatinine 0.64 L, Estim Creat Clear Calc 40.89, Est GFR (MDRD) Af Amer 156, Est GFR (MDRD) Non-Af 129, BUN/Creatinine Ratio 29.6 H, Glucose 103, Calcium 8.5 Current Medications Acetaminophen (Acetaminophen 325 Mg Tablet) 650 mg PO Q6H PRN PRN PRN Reason: Pain Score 1-10/Temp > 100.7 F Albuterol Sulfate (Albuterol 2.5 Mg/3 Ml Vial.Neb.) 2.5 mg INHALATION Q2H PRN PRN PRN Reason: SOB &/OR WHEEZING Last Admin: 11/28/20 22:23 Dose: 2.5 mg Documented by: Albuterol/Ipratropium (Ipratropium/Albuterol Sulfate 3 Ml Ampul.Neb) 3 ml INHALATION Q4HWA.RT [facility] Last Admin: 11/29/20 07:19 Dose: 3 ml Documented by: Atenolol (Atenolol 50 Mg Tablet) 50 mg PO DAILY [facility] Last Admin: 11/29/20 09:41 Dose: 50 mg Documented by: Enoxaparin Sodium (Enoxaparin 40 Mg/0.4 Ml Syringe) 40 mg SC DAILY [facility] Last Admin: 11/29/20 09:42 Dose: 40 mg Documented by: Guaifenesin (Guaifenesin 1,200 Mg Tablet) 1,200 mg PO BID [facility] Last Admin: 11/29/20 09:41 Dose: 1,200 mg Documented by: Methylprednisolone (Methylprednisolone 40 Mg/Ml Vial) 40 mg IV Q8 [facility] Last Admin: 11/29/20 06:08 Dose: 40 mg Documented by: Nitroglycerin (Nitroglycerin (Inpatient Use) 0.4 Mg Tab.Subl) 0.4 mg SL Q5M PRN PRN Reason: CARDIAC/CHEST PAIN Ondansetron HCl (Ondansetron 4 Mg/2 Ml Vial) 4 mg IV Q8H PRN PRN PRN Reason: NAUSEA/VOMITING Sodium Chloride (0.9% Saline Lock 10 Ml Syringe) 10 - 40 ml IV UD PRN PRN Reason: SALINE FLUSH Last Admin: 11/29/20 06:08 Dose: 10 ml Documented by: Clinical Impression(s) from Imaging Studies Chest X-Ray 11/28/20 11:44 IMPRESSION: COPD/emphysema without acute superimposed cardiopulmonary process. Electronically Signed: Glenn Marquez MD at 13:25 EDT Tel , Service support , Assessment/Plan RECOMMENDATIONS: 1. Continue bronchodilators, steroids 2. Consider azithromycin course 3. Transition to prednisone therapy tomorrow 4. Walking oximetry prior to discharge 5. We will need to wean to baseline 2.5 mg of prednisone on discharge IMPRESSIONS: 1. Acute on chronic hypoxic respiratory failure secondary to COPD exacerbation Patient does not appear to have any infiltrates on exam. However, patient does have advanced emphysematous changes and this may not present on chest x- ray. Would recommend a course of azithromycin. Patient should be continued on IV Solu-Medrol, duo nebs and mucolytic. Likely transition to prednisone tomorrow and wean over 12 to 14 days to baseline 2.5 mg. Patient will need a walking oximetry prior to discharge. Some concern patient may have an element of acute cor pulmonale secondary to reported hypoxia. Will hold on any diuretics for now. 2. Hypertension/history of small cell lung cancer/CAD status post stents/history of tobacco use/history of noncompliance Complicates care, management, recovery and prognosis. Okay to continue with baseline medications from my perspective. Inpatient E&M: 25402 Init Hosp L2
--- NOTE | 2020-11-29 10:40 | CASEMGMT ---
SHELLEY DAVIS Face to Face with patient for initial transition planning/care coordination assessment. RN SUSAN introduced self and role at [facility]. Patient lying in bed, alert and oriented. Patient willing to participate in assessment and is able to answer all questions appropriately. Care providers, pharmacy, and demographics verified. Patient wishes to discharge home, denies need for home health at this time, will monitor therapy. Patient states he has no further needs or concerns at this time. CM to follow for discharge planning needs that may arise. PCP: Michell Escamilla PIANO TECHNICIAN, Michaela Morris Specialists: None Preferred Pharmacy: [facility] Insurance: [facility] Prescription Benefit: yes Living Will/HPOA: yes, daughter Michell Garcia LNOK: daughter Living Arrangements: Patient lives alone in a 2 story home with bed and bath on the first floor. Patient states he is independent at home. Transportation: Daughter DME/HHC: Patient states he has shower chair, raised toilet seat, cane, walker, grab bars, nebulizer, and oxygen at 6lpm with portability. Patient denies previous HHC and has been to [facility] in the past. Patient states he recently quit smoking when he came into the hospital. Patient states he was smoking a couple cigarettes when he would 'bum' them off his neighbor. Patient states he usually removes his oxygen when he smokes. Disposition Plan: Patient wishes to discharge home with family support and follow-up plans in place. Will monitor progress with therapy. Brandi WARNER, RN, CM
--- NOTE | 2020-11-29 13:09 | CASEMGMT ---
SHELLEY DAVIS Coordination: Phone call received from pt's [facility] Immunology Specialist Lisa ([phone]). Lisa states she has been in contact with pt's daughter/HPWILI Galarza who has expressed concerns regarding pt's current living state. These concerns include urine soaked bed linens, cigarette butts in the sheets, trash cans full of beer cans/ETOH abuse, singe deshpande on the pt's NC (feels pt is smoking while wearing his O2), and not eating well (meals end up in freezer). Pt currently receives the following: Waiver Services including meals and home health aide for 4 hours/week. These hours can be increased but pt has not been agreeable and was reluctant to accept these hours. POWER AND RECOVERY SUPERINTENDENT is from [facility]. Douglas DAVIS is Shayy Huitron ([phone]). (POWER AND RECOVERY SUPERINTENDENT have not been providing much assistance as pt instructs them that he does not need anything.) Home O2 from [facility]. Pt's daughter has expressed to Lisa that she would like to see pt go to [facility] at discharge and then to [facility]. Lisa educated Michell on need for pt to be agreeable. Pt is currently on the waiting list for [facility] also noted pt does have a phone but does not answer or use it. She has facilitated all communication through Michell. SHELLEY DAVIS/TWILA to follow for further collaboration and facilitation of appropriate discharge plan. Lore Morin RN CM
--- NOTE | 2020-11-29 14:33 | CHAPLAIN ---
Type of Pastoral Visit _x__ Initial Visit ___ Follow-up Visit ___ On-call Visit ___ General Patient Visit ___ Spiritual Assessment ___ Family Conference ___ Bereavement ___ Rapid Response ___ Code Blue ___ Other (describe below) Pastoral Care Referral From _x__ Patient ___ Family ___ Nurse ___ Physician ___ Protocol Manager ___ Jewelry Technician ___ Other (describe below) Sacrament/Intervention ___ Active listening ___ Anointing ___ Congregation ___ Bereavement ___ Communion ___ Gracie exploration ___ ___ Life review ___ Prayer ___ Reconciliation ___ Sacrament of Sick _x__ Supportive presence ___ Wedding ___ Other (describe below) Pastoral Comments patient is reclining in chair with appearance of napping but stirs easily; patient states that he is doing better now; pt says that he lives alone, has been disabled since 1978, and does not have a mosque affiliation; pt says he does not need anything but welcomes a visit whenever tool straightener is available; pt has difficulty staying awake during this visit.
--- NOTE | 2020-11-29 14:34 | CASEMGMT ---
Social Work Note SW received update that pt has CM Shayy Huitron and pt's daughter has concerns with pt's current living state including trash cans full of beer cans/ETOH. SW placed a call to pt's CM Shayy Huitron and left message regarding admission to [facility]. SW attempted to speak with pt to discuss ETOH use. Pt soundly sleeping. SW tried to wake up, said pt's name three times, pt didn't wake. SW will attempt to meet with pt tomorrow regarding ETOH use. Brandi Willis LEARNING SPECIALIST, SENIOR MANUFACTURING ENGINEER
[2020-11-29] MEDS: Albuterol 2.5 MG/3 ML VIAL.NEB. INHALATION (20:35)
[2020-11-30] VITALS (18 sets, daily range): BP systolic 124–150; BP diastolic 67–98; PULSE 65–82; RESP 16–22; TEMP 36.6–37; O2SAT 86–98
[2020-11-30] MEDS: 0.9% Saline Lock 10 ML Syringe IV ×3 (06:08→21:33)
[2020-11-30] MEDS: Ipratropium/Albuterol Sulfate 3 ML AMPUL.NEB INHALATION ×5 (06:41→23:50)
--- NOTE | 2020-11-30 08:46 | PCM.PN.PUL ---
Subjective: Patient did well overnight. Patient feels that he is back to his baseline this morning. Patient is not reporting any chest pain, nominal pain, nausea or vomiting. Patient is not reporting any increased cough. - Physical Exam Vitals/I&O's: Vital Signs Temp Pulse Resp BP Pulse Ox 36.8 C 69 20 H 150/78 H 94 11/30/20 02:12 11/30/20 08:02 11/30/20 06:41 11/30/20 02:12 11/30/20 02:12 Oxygen Flow Rate (L/min) 6 Oxygen Delivery Method Nasal Cannula Weight: 46 kg Body Mass Index (BMI) 27.3 Intake and Output for Last 24 Hours 11/28/20 11/29/20 11/30/20 23:59 23:59 23:59 Intake Total 3013.75 / 3013.75 240 / 240 Output Total 1225 / 1225 500 / 500 Balance 1788.75 / 1788.75 -260 / -260 General: Alert, Oriented x3, Cooperative, - - Baseline dyspnea noted. Appears older than stated age HEENT: Atraumatic, PERRLA, EOMI, Normocephalic, - - No scleral icterus or injection noted Oral: Moist Mucosa, No Gingival or Mucosal Lesions/ Ulcerations Neck: Supple, No Nodes, Trachea Midline Lungs: No rhonchi, No wheeze, No rales, Diminished Cardiovascular: Regular rate, Regular Rhythm, Normal S1, Normal S2, Murmur, No rub noted, No Gallop Abdomen: Bowel Sounds Present, Soft, Non Tender, Non-Distended Extremities: No cyanosis, Capillary Refill Less than 3 Seconds, Clubbing Skin: - - No change compared to previous Musculoskeletal: No Tenderness to Palpation of Joints or Extremities Lymphatic: No Cervical, Supraclavicular, or Inguinal Adenopathy Neurological: Cranial nerves II-XII grossly intact, Neuro grossly intact, Motor Exam 5/5 strength throughout Psych/Mental Status: Alert and oriented to time, place, person, mood and affect Microbiology Past 72 Hours 11/28/20 12:20 Mucosa - Nose SARS-CoV-2 Antigen (Rapid) - Final Current Medications Acetaminophen (Acetaminophen 325 Mg Tablet) 650 mg PO Q6H PRN PRN PRN Reason: Pain Score 1-10/Temp > 100.7 F Albuterol Sulfate (Albuterol 2.5 Mg/3 Ml Vial.Neb.) 2.5 mg INHALATION Q2H PRN PRN PRN Reason: SOB &/OR WHEEZING Last Admin: 11/29/20 20:35 Dose: 2.5 mg Documented by: Albuterol/Ipratropium (Ipratropium/Albuterol Sulfate 3 Ml Ampul.Neb) 3 ml INHALATION Q4HWA.RT [facility] Last Admin: 11/30/20 06:41 Dose: 3 ml Documented by: Atenolol (Atenolol 50 Mg Tablet) 50 mg PO DAILY [facility] Last Admin: 11/29/20 09:41 Dose: 50 mg Documented by: Enoxaparin Sodium (Enoxaparin 40 Mg/0.4 Ml Syringe) 40 mg SC DAILY [facility] Last Admin: 11/29/20 09:42 Dose: 40 mg Documented by: Guaifenesin (Guaifenesin 1,200 Mg Tablet) 1,200 mg PO BID [facility] Last Admin: 11/29/20 22:35 Dose: 1,200 mg Documented by: Methylprednisolone (Methylprednisolone 40 Mg/Ml Vial) 40 mg IV Q8 [facility] Last Admin: 11/30/20 06:08 Dose: 40 mg Documented by: Nitroglycerin (Nitroglycerin (Inpatient Use) 0.4 Mg Tab.Subl) 0.4 mg SL Q5M PRN PRN Reason: CARDIAC/CHEST PAIN Nutritional Formula (Lactose Free) (Ensure Enlive 120 Ml Liquid) 120 ml PO 4X/DAY [facility] Last Admin: 11/29/20 22:35 Dose: 120 ml Documented by: Ondansetron HCl (Ondansetron 4 Mg/2 Ml Vial) 4 mg IV Q8H PRN PRN PRN Reason: NAUSEA/VOMITING Sodium Chloride (0.9% Saline Lock 10 Ml Syringe) 10 - 40 ml IV UD PRN PRN Reason: SALINE FLUSH Last Admin: 11/30/20 06:08 Dose: 10 ml Documented by: Medical Necessity - Tobacco Use Smoking Status: Light Smoker (<10/day) Tobacco Use: Cigarettes Assessment/Plan RECOMMENDATIONS: 1. Continue bronchodilators. Transition to prednisone and complete a 5-day burst prior to resumption of 2.5 mg 2. Complete azithromycin course 3. Will obtain walking oximetry to see if patient can get a higher flow oxygen concentrator at home 4. Walking oximetry prior to discharge 5. We will need to wean to baseline 2.5 mg of prednisone on discharge IMPRESSIONS: 1. Acute on chronic hypoxic respiratory failure secondary to COPD exacerbation Patient does not appear to have any infiltrates on exam. However, patient does have advanced emphysematous changes and this may not present on chest x-ray. Would recommend a course of azithromycin. Given rapidity of recovery, cor pulmonale would be a consideration. Patient should have a walking oximetry prior to discharge. Patient states his home concentrator only goes up to 6 L. This may need to be upgraded to one that goes to 10 L to avoid repeat hospitalization. Patient should follow-up in 2 weeks with nurse practitioner. Patient can be on a 5-day burst of 40 mg of prednisone and then resume his baseline 2.5 mg of prednisone. Patient can resume baseline inhaler therapy on discharge. 2. Hypertension/history of small cell lung cancer/CAD status post stents/history of tobacco use/history of noncompliance Complicates care, management, recovery and prognosis. Okay to continue with baseline medications from my perspective. Inpatient E&M: 98021 Subs Hosp L2
[2020-11-30] MEDS: Atenolol 50 MG Tablet PO (08:55)
[2020-11-30] MEDS: Enoxaparin 40 MG/0.4 ML Syringe SC (08:55)
[2020-11-30] MEDS: guaiFENesin 1,200 MG Tablet 1200 MG PO ×2 (08:56→21:31)
--- NOTE | 2020-11-30 09:35 | CASEMGMT ---
Addendum entered by Brandi Willis 11/30/20 09:50: SW back in to speak with pt. SW informed pt that pt's daughter had called in requesting pt go to SNF ([facility]) for rehabilitation. SW specifically asked if pt if he wanted to go to [facility] and pt denied. Pt again states he wants to go home. SW received call from pt's CM Shayy Huitron. SW updated Shayy that pt plans on returning home. Pt denied HHC and denied SNF. Shayy states that she did make an APS report as pt's insurance is considering pt self neglect. SW to fax discharge paperwork once completed. Original Note: Social Work Note SW in to speak with pt. SW introduced self and role at [facility]. Pt is sleeping but woke up when this worker entered the room. Pt denied any ETOH use/abuse, states it's been a long time since he last drank ETOH. SW asked pt about cigarette use, pt denied, stating he quit using cigarettes. Pt denied any Mental Health Hx. Pt denied any needs or concerns at this time. Pt states he plans on returning home at discharge. SW will make APS report to pt's current living state that was reported (urine soaked bed linens, cigarette butts in the sheets, trash cans full of beer cans/ETOH use, singe deshpande on pt's NC (feels pt is smoking while wearing his O2) and pt not eating well (meals end up in freezer). Brandi Willis HYDRODYNAMICS TEACHER, [employer]ER [employer]K [employer]
--- NOTE | 2020-11-30 12:15 | CASEMGMT ---
SHELLEY DAVIS called [facility] to inquire what patient's oxygen order is for. Per Brandi at [facility] his order is for 3lpm continuously. SHELLEY DAVIS updated hospitalist. SHELLEY DAVIS will continue to follow this patient and plan for a safe discharge.
--- NOTE | 2020-11-30 12:54 | PN_ITS ---
Subjective: Chief complaint: Follow-up after admission for acute COPD exacerbation and acute on chronic hypoxic respiratory failure. Patient seen and examined. No acute events overnight. Today, patient is feeling better, remains on 6 L of oxygen. Ambulatory pulse ox was performed and he required up to 10 L of oxygen upon ambulation. Apparently, patient is supposed to be on only 3 L of oxygen according to the last visit with the inspector scales. It looks like patient has been going up on his oxygen by his own. He is afebrile, pulse ox is 93% on 6 L, requiring 10 L of oxygen with ambulation and pulse ox was 86%. - Physical Exam Vitals/I&O's: Vital Signs Temp Pulse Resp BP Pulse Ox 97.9 F 77 17 124/67 H 86 11/30/20 08:20 11/30/20 11:03 11/30/20 11:03 11/30/20 08:20 11/30/20 11:00 Oxygen Flow Rate (L/min) [ 10 AMBULATING with Oxygen #3] Oxygen Flow Rate (L/min) 6 Oxygen Delivery Method Nasal Cannula Weight: 101 lb 6.602 oz Body Mass Index (BMI) 27.3 Intake and Output for Last 24 Hours 11/28/20 11/29/20 11/30/20 23:59 23:59 23:59 Intake Total 3013.75 / 3013.75 240 / 240 Output Total 1225 / 1225 500 / 500 Balance 1788.75 / 1788.75 -260 / -260 General: Alert, Oriented x3, Cooperative, - - Minimally short of breath. HEENT: Atraumatic, PERRLA, EOMI, Normocephalic Oral: Moist Mucosa, No Gingival or Mucosal Lesions/ Ulcerations Neck: Supple, No JVD, Negative Carotid Bruits, Trachea Midline, Thyroid Normal Size and Texture Lungs: No rales, Diminished, Rhonchi, Wheezes, - - Decreased breath sounds bilateral, expiratory wheezes. Cardiovascular: Regular rate, Regular Rhythm, Normal S1, Normal S2, PMI Normal Abdomen: Bowel Sounds Present, Soft, Non Tender, Non-Distended, No Hepato- splenomegaly Extremities: No clubbing, No cyanosis, No edema Skin: No rashes, No breakdown Lymphatic: No Cervical, Supraclavicular, or Inguinal Adenopathy Neurological: Cranial nerves II-XII grossly intact, Neuro grossly intact Psych/Mental Status: Normal Affect, Appropriate Microbiology Past 72 Hours 11/28/20 12:17 Blood Culture (Wb) #2 - Anticubital Left Blood Culture - Preliminary No growth in 48 hours. 11/28/20 11:30 Blood Culture (Wb) - Anticubital Left Blood Culture - Preliminary No growth in 48 hours. 11/28/20 12:20 Mucosa - Nose SARS-CoV-2 Antigen (Rapid) - Final Current Medications Acetaminophen (Acetaminophen 325 Mg Tablet) 650 mg PO Q6H PRN PRN PRN Reason: Pain Score 1-10/Temp > 100.7 F Albuterol Sulfate (Albuterol 2.5 Mg/3 Ml Vial.Neb.) 2.5 mg INHALATION Q2H PRN PRN PRN Reason: SOB &/OR WHEEZING Last Admin: 11/29/20 20:35 Dose: 2.5 mg Documented by: Albuterol/Ipratropium (Ipratropium/Albuterol Sulfate 3 Ml Ampul.Neb) 3 ml INHALATION Q4HWA.RT [facility] Last Admin: 11/30/20 11:03 Dose: 3 ml Documented by: Atenolol (Atenolol 50 Mg Tablet) 50 mg PO DAILY [facility] Last Admin: 11/30/20 08:55 Dose: 50 mg Documented by: Enoxaparin Sodium (Enoxaparin 40 Mg/0.4 Ml Syringe) 40 mg SC DAILY [facility] Last Admin: 11/30/20 08:55 Dose: 40 mg Documented by: Guaifenesin (Guaifenesin 1,200 Mg Tablet) 1,200 mg PO BID [facility] Last Admin: 11/30/20 08:56 Dose: 1,200 mg Documented by: Methylprednisolone (Methylprednisolone 40 Mg/Ml Vial) 40 mg IV Q8 [facility] Last Admin: 11/30/20 06:08 Dose: 40 mg Documented by: Nitroglycerin (Nitroglycerin (Inpatient Use) 0.4 Mg Tab.Subl) 0.4 mg SL Q5M PRN PRN Reason: CARDIAC/CHEST PAIN Nutritional Formula (Lactose Free) (Ensure Enlive 120 Ml Liquid) 120 ml PO 4X/DAY [facility] Last Admin: 11/30/20 10:07 Dose: Not Given Documented by: Ondansetron HCl (Ondansetron 4 Mg/2 Ml Vial) 4 mg IV Q8H PRN PRN PRN Reason: NAUSEA/VOMITING Sodium Chloride (0.9% Saline Lock 10 Ml Syringe) 10 - 40 ml IV UD PRN PRN Reason: SALINE FLUSH Last Admin: 11/30/20 06:08 Dose: 10 ml Documented by: Medical Necessity - Tobacco Use Smoking Status: Light Smoker (<10/day) Tobacco Use: Cigarettes Assessment/Plan This is a 75 years old male patient presented to the emergency room because of worsening shortness of breath, was admitted for COPD exacerbation and acute on chronic hypoxic respiratory failure. #1 acute COPD exacerbation: Remained on IV Solu-Medrol, DuoNeb every 4 hours and albuterol as needed. Chest x-ray reviewed, no acute findings. COVID-19 antigen was negative. He remains on 6 L of oxygen, requiring up to 10 L with ambulation. Apparently, patient is supposed to be on oxygen at 3 L but he has been cleaned up on his oxygen by his own. Secondary pulmonary hypertension is probably what is causing his worsening symptoms and oxygenation. Plan: Continue same treatment, IV Lasix 40 mg x 1, wean off oxygen as tolerated, patient may need placement to assisted facility. #2 acute on chronic hypoxic respiratory failure: Secondary to COPD and possible secondary pulmonary hypertension. Apparently, patient is on oxygen at 3 L at home but he has been increasing his oxygen on his own. Today, he reported improvement of his symptoms, has been on 6 L and stable. Plan as above. #3 hypertension: Blood pressure stable, continue atenolol. #4 history of small cell lung cancer: Status post chemotherapy. He has no active disease currently. Recommend follow-up with oncology as outpatient. #5 CAD status post stents: Stable, no complaints. Patient denied any chest pain, troponin is negative. He is only on atenolol. #6 DVT prophylaxis: Subcu Lovenox. This note was generated with [employer] dictation software. It may contain incorrect words, spelling, and punctuation that were not noted in checking the note before signing. Inpatient E&M: 52407 Subs Hosp L2
--- NOTE | 2020-11-30 13:19 | CASEMGMT ---
Addendum entered by Brandi Willis 11/30/20 16:44: SW placed a call to pt's CM Shayy Huitron and left message that pt is now agreeable to SNF, will be going to [facility] at discharge. Original Note: Social Work Note SW updated that pt is now agreeable to SNF. SW in to speak with pt. Pt confirms he is agreeable to SNF. Patient was provided a list of SNF providers including quality and resource use data and consistent with the patient?s preferred geographic region, medical needs, and insurance network. Pt's preferred provider is [facility]. SW explained that this worker will make referral. Pt states understanding. TWILA placed a call to Sharona at [facility] and provided referral. Sharona states she will have to check regarding oxygen to determine if they have a big enough concentrator for pt or if she will need to order one. Sharona states she will submit for pre-cert once referral is received. TWILA faxed referral. Plan: [facility] pending pre-cert Brandi Willis MANAGER POWER, SUPERVISOR GAME [employer]ARM
--- NOTE | 2020-11-30 13:38 | CASEMGMT ---
Palliative screening tool completed at this time due to Lace/Strata score of 3. Patient meets criteria at this time. Hospitalist notified, no referral per hospitalist.
[2020-11-30] MEDS: Albuterol 2.5 MG/3 ML VIAL.NEB. INHALATION ×2 (13:51→21:45)
[2020-11-30] MEDS: Furosemide 40 MG/4 ML Vial IV (14:34)
[2020-12-01] VITALS (18 sets, daily range): BP systolic 107–152; BP diastolic 73–91; PULSE 64–99; RESP 18–20; TEMP 36.5–36.9; O2SAT 92–96
[2020-12-01] MEDS: Ipratropium/Albuterol Sulfate 3 ML AMPUL.NEB INHALATION ×4 (03:05→17:30)
[2020-12-01] MEDS: 0.9% Saline Lock 10 ML Syringe IV ×3 (05:43→17:29)
[2020-12-01 07:27] LABS: Anion Gap 2 (5-15); BUN 33 mg/dL (7-18); BUN/Creat Ratio 44.7 RATIO (10-20); Calcium,Total 8.9 mg/dL (8.5-10.1); Chloride 95 mmol/L (98-107); Creatinine, Serum 0.74 mg/dL (0.70-1.30); EST Glomerular Filtration Rate 109 mL/min (>60); Est Glom Filt Rate - Afr Amer 132 mL/min (>60); Estimated Creatinine Clearance 40.89 ml/min; Glucose 127 mg/dL (74-106); Potassium 3.8 mmol/L (3.5-5.1); Sodium Level 138 mmol/L (136-145)
[2020-12-01] MEDS: predniSONE 20 MG Tablet 40 MG PO (08:42)
--- NOTE | 2020-12-01 08:47 | PN_ITS ---
Subjective: Patient did well overnight. No acute issues were reported. Patient's discharge was delayed secondary to a need for 10 L nasal cannula with walking oximetry. Patient received diuretics and feels subjectively improved this morning, but does admit that he has not been walking around much. - Physical Exam Vitals/I&O's: Vital Signs Temp Pulse Resp BP Pulse Ox 36.8 C 82 20 H 152/91 H 96 12/01/20 02:31 12/01/20 07:57 12/01/20 06:10 12/01/20 02:31 12/01/20 06:10 Oxygen Flow Rate (L/min) [ 10 AMBULATING with Oxygen #3] Oxygen Flow Rate (L/min) 6 Oxygen Delivery Method Nasal Cannula Weight: 46 kg Body Mass Index (BMI) 27.3 Intake and Output for Last 24 Hours 11/29/20 11/30/20 12/01/20 23:59 23:59 23:59 Intake Total 3013.75 / 3013.75 830 / 830 Output Total 1225 / 1225 500 / 500 Balance 1788.75 / 1788.75 330 / 330 General: Alert, Oriented x3, Cooperative, - - No conversational dyspnea. Appears older than stated age. HEENT: Atraumatic, PERRLA, EOMI, Normocephalic, - - No scleral icterus or injection noted Oral: Moist Mucosa, No Gingival or Mucosal Lesions/ Ulcerations Neck: Supple, No Nodes, Trachea Midline, JVD, Right Lungs: No rhonchi, No wheeze, No rales, Diminished, - - Symmetric expansion. Increased AP diameter. Cardiovascular: Regular rate, Regular Rhythm, Normal S1, Normal S2, Murmur, No rub noted, No Gallop Abdomen: Bowel Sounds Present, Soft, Non Tender, Non-Distended Extremities: No clubbing, No cyanosis Skin: No rashes, No breakdown Musculoskeletal: No Tenderness to Palpation of Joints or Extremities Lymphatic: No Cervical, Supraclavicular, or Inguinal Adenopathy Neurological: Cranial nerves II-XII grossly intact, Neuro grossly intact, Motor Exam 5/5 strength throughout Psych/Mental Status: Alert and oriented to time, place, person, mood and affect Microbiology Past 72 Hours 11/28/20 12:17 Blood Culture (Wb) #2 - Anticubital Left Blood Culture - Preliminary No growth in 48 hours. 11/28/20 11:30 Blood Culture (Wb) - Anticubital Left Blood Culture - Preliminary No growth in 48 hours. 11/28/20 12:20 Mucosa - Nose SARS-CoV-2 Antigen (Rapid) - Final Laboratory Results 12/01/20 06:28: Sodium 138, Potassium 3.8, Chloride 95 L, Carbon Dioxide 41.0 H, Anion Gap 2 L, BUN 33 H, Creatinine 0.74, Estim Creat Clear Calc 40.89, Est GFR (MDRD) Af Amer 132, Est GFR (MDRD) Non-Af 109, BUN/Creatinine Ratio 44.7 H, Glucose 127 H, Calcium 8.9 Current Medications Acetaminophen (Acetaminophen 325 Mg Tablet) 650 mg PO Q6H PRN PRN PRN Reason: Pain Score 1-10/Temp > 100.7 F Albuterol Sulfate (Albuterol 2.5 Mg/3 Ml Vial.Neb.) 2.5 mg INHALATION Q2H PRN PRN PRN Reason: SOB &/OR WHEEZING Last Admin: 11/30/20 21:45 Dose: 2.5 mg Documented by: Albuterol/Ipratropium (Ipratropium/Albuterol Sulfate 3 Ml Ampul.Neb) 3 ml INHALATION Q4HWA.RT [facility] Last Admin: 12/01/20 03:05 Dose: 3 ml Documented by: Atenolol (Atenolol 50 Mg Tablet) 50 mg PO DAILY [facility] Last Admin: 11/30/20 08:55 Dose: 50 mg Documented by: Enoxaparin Sodium (Enoxaparin 40 Mg/0.4 Ml Syringe) 40 mg SC DAILY [facility] Last Admin: 11/30/20 08:55 Dose: 40 mg Documented by: Furosemide (Furosemide 40 Mg/4 Ml Vial) 40 mg IV BID@1000,1800 [facility] Guaifenesin (Guaifenesin 1,200 Mg Tablet) 1,200 mg PO BID [facility] Last Admin: 11/30/20 21:31 Dose: 1,200 mg Documented by: Nitroglycerin (Nitroglycerin (Inpatient Use) 0.4 Mg Tab.Subl) 0.4 mg SL Q5M PRN PRN Reason: CARDIAC/CHEST PAIN Nutritional Formula (Lactose Free) (Ensure Enlive 120 Ml Liquid) 120 ml PO 4X/DAY [facility] Last Admin: 12/01/20 08:44 Dose: 120 ml Documented by: Ondansetron HCl (Ondansetron 4 Mg/2 Ml Vial) 4 mg IV Q8H PRN PRN PRN Reason: NAUSEA/VOMITING Prednisone (Prednisone 20 Mg Tablet) 40 mg PO DAILY@0800 [facility] Last Admin: 12/01/20 08:42 Dose: 40 mg Documented by: Sodium Chloride (0.9% Saline Lock 10 Ml Syringe) 10 - 40 ml IV UD PRN PRN Reason: SALINE FLUSH Last Admin: 12/01/20 05:43 Dose: 10 ml Documented by: Medical Necessity - Tobacco Use Smoking Status: Light Smoker (<10/day) Tobacco Use: Cigarettes Assessment/Plan RECOMMENDATIONS: 1. Continue bronchodilators. Transition to prednisone and complete a 5-day burst prior to resumption of 2.5 mg 2. Complete azithromycin course 3. Will obtain walking oximetry to see if patient can get a higher flow oxygen concentrator at home 4. Continue with diuretics as tolerated. We will need to check electrolytes daily 5. We will need to wean to baseline 2.5 mg of prednisone on discharge IMPRESSIONS: 1. Acute on chronic hypoxic respiratory failure secondary to COPD exacerbation Patient does not appear to have any infiltrates on exam. However, patient does have advanced emphysematous changes and this may not present on chest x- ray. Would recommend a course of azithromycin. Given rapidity of recovery, cor pulmonale would be a consideration. Patient appears to be responding well to diuretic therapy. Patient should have a walking oximetry prior to discharge. Patient states his home concentrator only goes up to 6 L. This may need to be upgraded to one that goes to 10 L to avoid repeat hospitalization. Patient should follow-up in 2 weeks with nurse practitioner. Patient can be on a 5-day burst of 40 mg of prednisone and then resume his baseline 2.5 mg of prednisone. Patient can resume baseline inhaler therapy on discharge. 2. Hypertension/history of small cell lung cancer/CAD status post stents/history of tobacco use/history of noncompliance Complicates care, management, recovery and prognosis. Okay to continue with baseline medications from my perspective. Inpatient E&M: 77563 Subs Hosp L2
[2020-12-01] MEDS: guaiFENesin 1,200 MG Tablet 1200 MG PO ×2 (08:53→21:11)
[2020-12-01] MEDS: Atenolol 50 MG Tablet PO (08:53)
[2020-12-01] MEDS: Enoxaparin 40 MG/0.4 ML Syringe SC (08:53)
[2020-12-01] MEDS: Furosemide 40 MG/4 ML Vial IV ×2 (08:53→17:29)
--- NOTE | 2020-12-01 10:23 | PN_ITS ---
Subjective: Chief complaint: Follow-up after admission for acute COPD exacerbation and acute on chronic hypoxic respiratory failure. Patient seen and examined. No acute events overnight. Today, patient remained stable, denied worsening shortness of breath. He remains on 6 L of oxygen. He required up to 10 L of oxygen upon ambulation yesterday. He was given IV Lasix yesterday. Pulse ox is around 94% on 6 L, other vital signs are stable. - Physical Exam Vitals/I&O's: Vital Signs Temp Pulse Resp BP Pulse Ox 97.8 F 84 18 126/78 H 94 12/01/20 08:45 12/01/20 10:09 12/01/20 10:09 12/01/20 08:45 12/01/20 10:09 Oxygen Flow Rate (L/min) [ 10 AMBULATING with Oxygen #3] Oxygen Flow Rate (L/min) 6 Oxygen Delivery Method Nasal Cannula Weight: 101 lb 6.602 oz Body Mass Index (BMI) 27.3 Intake and Output for Last 24 Hours 11/29/20 11/30/20 12/01/20 23:59 23:59 23:59 Intake Total 3013.75 / 3013.75 830 / 830 Output Total 1225 / 1225 500 / 500 Balance 1788.75 / 1788.75 330 / 330 General: Alert, Oriented x3, Cooperative, No apparent distress HEENT: Atraumatic, PERRLA, EOMI, Normocephalic Oral: Moist Mucosa, No Gingival or Mucosal Lesions/ Ulcerations Neck: Supple, No JVD, Negative Carotid Bruits, Trachea Midline, Thyroid Normal Size and Texture Lungs: No rhonchi, No rales, Diminished, Wheezes, - - Decreased breath sounds bilateral, expiratory wheezes. Cardiovascular: Regular rate, Regular Rhythm, Normal S1, Normal S2, PMI Normal Abdomen: Bowel Sounds Present, Soft, Non Tender, Non-Distended, No Hepato- splenomegaly Extremities: No clubbing, No cyanosis, No edema Skin: No rashes, No breakdown Lymphatic: No Cervical, Supraclavicular, or Inguinal Adenopathy Neurological: Cranial nerves II-XII grossly intact, Neuro grossly intact Psych/Mental Status: Normal Affect, Appropriate Microbiology Past 72 Hours 11/28/20 12:17 Blood Culture (Wb) #2 - Anticubital Left Blood Culture - Preliminary No growth in 48 hours. 11/28/20 11:30 Blood Culture (Wb) - Anticubital Left Blood Culture - Preliminary No growth in 48 hours. 11/28/20 12:20 Mucosa - Nose SARS-CoV-2 Antigen (Rapid) - Final Laboratory Results 12/01/20 06:28: Sodium 138, Potassium 3.8, Chloride 95 L, Carbon Dioxide 41.0 H, Anion Gap 2 L, BUN 33 H, Creatinine 0.74, Estim Creat Clear Calc 40.89, Est GFR (MDRD) Af Amer 132, Est GFR (MDRD) Non-Af 109, BUN/Creatinine Ratio 44.7 H, Glucose 127 H, Calcium 8.9 Current Medications Acetaminophen (Acetaminophen 325 Mg Tablet) 650 mg PO Q6H PRN PRN PRN Reason: Pain Score 1-10/Temp > 100.7 F Albuterol Sulfate (Albuterol 2.5 Mg/3 Ml Vial.Neb.) 2.5 mg INHALATION Q2H PRN PRN PRN Reason: SOB &/OR WHEEZING Last Admin: 11/30/20 21:45 Dose: 2.5 mg Documented by: Albuterol/Ipratropium (Ipratropium/Albuterol Sulfate 3 Ml Ampul.Neb) 3 ml INHALATION Q4HWA.RT [facility] Last Admin: 12/01/20 10:07 Dose: 3 ml Documented by: Atenolol (Atenolol 50 Mg Tablet) 50 mg PO DAILY [facility] Last Admin: 12/01/20 08:53 Dose: 50 mg Documented by: Enoxaparin Sodium (Enoxaparin 40 Mg/0.4 Ml Syringe) 40 mg SC DAILY [facility] Last Admin: 12/01/20 08:53 Dose: 40 mg Documented by: Furosemide (Furosemide 40 Mg/4 Ml Vial) 40 mg IV BID@1000,1800 [facility] Last Admin: 12/01/20 08:53 Dose: 40 mg Documented by: Guaifenesin (Guaifenesin 1,200 Mg Tablet) 1,200 mg PO BID [facility] Last Admin: 12/01/20 08:53 Dose: 1,200 mg Documented by: Nitroglycerin (Nitroglycerin (Inpatient Use) 0.4 Mg Tab.Subl) 0.4 mg SL Q5M PRN PRN Reason: CARDIAC/CHEST PAIN Nutritional Formula (Lactose Free) (Ensure Enlive 120 Ml Liquid) 120 ml PO 4X/DAY [facility] Last Admin: 12/01/20 08:44 Dose: 120 ml Documented by: Ondansetron HCl (Ondansetron 4 Mg/2 Ml Vial) 4 mg IV Q8H PRN PRN PRN Reason: NAUSEA/VOMITING Prednisone (Prednisone 20 Mg Tablet) 40 mg PO DAILY@0800 [facility] Last Admin: 12/01/20 08:42 Dose: 40 mg Documented by: Sodium Chloride (0.9% Saline Lock 10 Ml Syringe) 10 - 40 ml IV UD PRN PRN Reason: SALINE FLUSH Last Admin: 12/01/20 08:56 Dose: 10 ml Documented by: Medical Necessity - Tobacco Use Smoking Status: Light Smoker (<10/day) Tobacco Use: Cigarettes Assessment/Plan This is a 75 years old male patient presented to the emergency room because of worsening shortness of breath, was admitted for COPD exacerbation and acute on chronic hypoxic respiratory failure. #1 acute COPD exacerbation: Switch to p.o. prednisone today, remains on bronchodilators and started on scheduled IV Lasix twice daily. Cor pulmonale/secondary pulmonary hypertension is considered. Chest x-ray reviewed, no acute findings. COVID-19 antigen was negative. Patient remained on 6 L of oxygen. Yesterday, he required up to 10 L of oxygen upon ambulation. Plan: Continue same treatment, repeat CBC and BMP tomorrow morning, ambulatory pulse ox tomorrow morning, plan for SNF placement medically stable. #2 acute on chronic hypoxic respiratory failure: Secondary to COPD and possible secondary pulmonary hypertension/cor pulmonale. Apparently, patient is on oxygen at 3 L at home but he has been increasing his oxygen on his own. Today, he remains on 6 L of oxygen. Plan as above. #3 hypertension: Blood pressure stable, continue atenolol. #4 history of small cell lung cancer: Status post chemotherapy. He has no active disease currently. Recommend follow-up with oncology as outpatient. #5 CAD status post stents: Stable, no complaints. Patient denied any chest pain, troponin is negative. He is only on atenolol. #6 DVT prophylaxis: Subcu Lovenox. This note was generated with [employer] dictation software. It may contain incorrect words, spelling, and punctuation that were not noted in checking the note before signing. Inpatient E&M: 33641 Subs Hosp L2
--- NOTE | 2020-12-01 10:42 | CASEMGMT ---
Addendum entered by Brandi Willis 12/01/20 15:24: SW updated pt on acceptance to [facility] pending pre-cert. Pt states understanding. Addendum entered by Brandi Willis 12/01/20 15:12: TWILA placed a call to Sharona at [facility], no pre-cert yet. TWILA updated Sharona, plan is discharge tomorrow if medically cleared. Sharona states she spoke with pt's [facility] SUSAN Gonzalez and there are some family dynamics. Pt's daughter feels pt is not able to care for self as pt will smoke with oxygen on and pt will drink beer. Pt's daughter wants [facility] to do a mini mental and expert evaluation when pt arrives at [facility] but pt's daughter doesn't want to pursue guardianship for pt. SW to continue to follow. Plan: [facility] pending pre-cert Addendum entered by Brandi Willis 12/01/20 11:22: TWILA spoke with Rosmery at [facility] and updated her that plan is for pt to admit to [facility] tomorrow. Original Note: Social Work Note TWILA faxed updated clinicals to [facility], TWILA wrote on fax coversheet that pt is not medically ready for discharge today. Plan: [facility] pending pre-cert Brandi Willis COIL BUILDER, CRANKSHAFT GRINDER
[2020-12-01] MEDS: Albuterol 2.5 MG/3 ML VIAL.NEB. INHALATION ×2 (12:33→20:33)
[2020-12-02] VITALS (17 sets, daily range): BP systolic 103–127; BP diastolic 67–77; PULSE 64–85; RESP 16–20; TEMP 36.5–36.9; O2SAT 79–99
[2020-12-02] MEDS: Albuterol 2.5 MG/3 ML VIAL.NEB. INHALATION ×3 (01:29→13:14)
[2020-12-02] MEDS: Ipratropium/Albuterol Sulfate 3 ML AMPUL.NEB INHALATION ×4 (06:40→22:35)
[2020-12-02 07:04] LABS: Absolute Lymphocyte Count 0.62 X10^3/uL (0.83-4.51); Absolute Neutrophil Count 7.5 X10^3/uL (2.0-7.7); Basophil# 0.02 X10^3/uL; Basophil% 0.2 % (0-1); Eosinophil# 0.01 X10^3/uL; Eosinophils% 0.1 % (0-5); Hematocrit 39.4 % (40-54); Hemoglobin 12.7 g/dL (13.0-16.5); Lymphocyte # 0.62 X10^3/ul (4.0); Lymphocyte % 6.7 % (19-41); Mean Corp Hgb Conc 32.2 g/dL (32-36); Mean Corpuscular Hgb 32.1 pg (27.0-32.0); Mean Corpuscular Volume 99.5 fL (80-94); Mean Platelet Vol. 10.1 fl (6.2-12.0); Monocyte# 0.96 X10^3/uL; Monocyte% 10.4 % (0-10); NRBC Flagged by Analyzer 0 % (0-5); Neutrophil # 7.54 X10^3/uL (2.7-7.7); Neutrophil % 81.8 % (47-70); Platelet Count 249 K/mm3 (150-450); RBC Distribution Width CV 12.6 % (11.6-14.6); RBC Distribution Width SD 46.6 fl (35.1-43.9); Red Blood Count 3.96 M/mm3 (4.6-6.2); White Blood Count 9.2 K/mm3 (4.4-11.0)
[2020-12-02 07:58] LABS: BUN 41 mg/dL (7-18); BUN/Creat Ratio 38.7 RATIO (10-20); Calcium,Total 8.9 mg/dL (8.5-10.1); Carbon Dioxide > 45.0 mmol/L (21.0-32.0); Chloride 91 mmol/L (98-107); Creatinine, Serum 1.06 mg/dL (0.70-1.30); EST Glomerular Filtration Rate 72 mL/min (>60); Est Glom Filt Rate - Afr Amer 87 mL/min (>60); Estimated Creatinine Clearance 38.57 ml/min; Glucose 103 mg/dL (74-106); Potassium 4.1 mmol/L (3.5-5.1); Sodium Level 136 mmol/L (136-145)
[2020-12-02] MEDS: predniSONE 20 MG Tablet 40 MG PO (08:23)
--- NOTE | 2020-12-02 08:48 | PN_ITS ---
Subjective: Patient did well overnight. No acute issues were reported. Patient feels subjectively improved compared to previous and was able to ambulate to the chair. No significant cough or chest pain is been reported. - Physical Exam Vitals/I&O's: Vital Signs Temp Pulse Resp BP Pulse Ox 36.9 C 69 18 127/70 H 88 12/02/20 07:51 12/02/20 07:51 12/02/20 07:51 12/02/20 07:51 12/02/20 08:03 Oxygen Flow Rate (L/min) [ 10 AMBULATING with Oxygen #2] Oxygen Flow Rate (L/min) [ 6 AMBULATING with Oxygen #1] Oxygen Flow Rate (L/min) [At 0 REST on Room Air] Oxygen Flow Rate (L/min) [ 10 AMBULATING with Oxygen #3] Oxygen Flow Rate (L/min) 6 Oxygen Delivery Method Nasal Cannula Weight: 46 kg Body Mass Index (BMI) 27.3 Intake and Output for Last 24 Hours 11/30/20 12/01/20 12/02/20 23:59 23:59 23:59 Intake Total 830 / 830 750 / 750 Output Total 500 / 500 950 / 950 500 / 500 Balance 330 / 330 -200 / -200 -500 / -500 General: Alert, Oriented x3, Cooperative, - - Mild conversational dyspnea HEENT: Atraumatic, PERRLA, EOMI, Normocephalic, - - No scleral icterus or injection noted Oral: Moist Mucosa, No Gingival or Mucosal Lesions/ Ulcerations Neck: Supple, No JVD, No Nodes, Trachea Midline Lungs: No rhonchi, No rales, Diminished, Wheezes, - - Increased AP diameter Cardiovascular: Regular rate, Regular Rhythm, Normal S1, Normal S2, Murmur, No rub noted, No Gallop Abdomen: Bowel Sounds Present, Soft, Non Tender, Non-Distended Extremities: No cyanosis, Clubbing Skin: - - No change compared to previous Musculoskeletal: No Tenderness to Palpation of Joints or Extremities Lymphatic: No Cervical, Supraclavicular, or Inguinal Adenopathy Neurological: Cranial nerves II-XII grossly intact, Neuro grossly intact, Motor Exam 5/5 strength throughout Psych/Mental Status: Alert and oriented to time, place, person, mood and affect Microbiology Past 72 Hours 11/28/20 12:17 Blood Culture (Wb) #2 - Anticubital Left Blood Culture - P reliminary No growth in 48 hours. 11/28/20 11:30 Blood Culture (Wb) - Anticubital Left Blood Culture - Preliminary No growth in 48 hours. Laboratory Results 12/02/20 06:10: WBC 9.2, RBC 3.96 L, Hgb 12.7 L, Hct 39.4 L, MCV 99.5 H, MCH 32.1 H, MCHC 32.2, RDW Std Deviation 46.6 H, RDW Coeff of Jaime 12.6, Plt Count 249, MPV 10.1, Immature Gran % (Auto) 0.800, Neut % (Auto) 81.8 H, Lymph % (Auto) 6.7 L, Bureau % (Auto) 10.4 H, Eos % (Auto) 0.1, Baso % (Auto) 0.2, Absolute Neuts (auto) 7.5, Absolute Lymphs (auto) 0.62 L, Nucleated RBC % 0 12/02/20 06:10: Sodium 136, Potassium 4.1, Chloride 91 L, Carbon Dioxide > 45.0 H*, Anion Gap TNP, BUN 41 H, Creatinine 1.06, Estim Creat Clear Calc 38.57, Est GFR (MDRD) Af Amer 87, Est GFR (MDRD) Non-Af 72, BUN/Creatinine Ratio 38.7 H, Glucose 103, Calcium 8.9 Current Medications Acetaminophen (Acetaminophen 325 Mg Tablet) 650 mg PO Q6H PRN PRN PRN Reason: Pain Score 1-10/Temp > 100.7 F Albuterol Sulfate (Albuterol 2.5 Mg/3 Ml Vial.Neb.) 2.5 mg INHALATION Q2H PRN PRN PRN Reason: SOB &/OR WHEEZING Last Admin: 12/02/20 08:43 Dose: 2.5 mg Documented by: Albuterol/Ipratropium (Ipratropium/Albuterol Sulfate 3 Ml Ampul.Neb) 3 ml INHALATION Q4HWA.RT [facility] Last Admin: 12/02/20 06:40 Dose: 3 ml Documented by: Atenolol (Atenolol 50 Mg Tablet) 50 mg PO DAILY [facility] Last Admin: 12/01/20 08:53 Dose: 50 mg Documented by: Enoxaparin Sodium (Enoxaparin 40 Mg/0.4 Ml Syringe) 40 mg SC DAILY [facility] Last Admin: 12/01/20 08:53 Dose: 40 mg Documented by: Furosemide (Furosemide 20 Mg Tablet) 20 mg PO X1 ONE Stop: 12/02/20 08:48 Guaifenesin (Guaifenesin 1,200 Mg Tablet) 1,200 mg PO BID [facility] Last Admin: 12/01/20 21:11 Dose: 1,200 mg Documented by: Nitroglycerin (Nitroglycerin (Inpatient Use) 0.4 Mg Tab.Subl) 0.4 mg SL Q5M PRN PRN Reason: CARDIAC/CHEST PAIN Nutritional Formula (Lactose Free) (Ensure Enlive 120 Ml Liquid) 120 ml PO 4X/DAY [facility] Last Admin: 12/02/20 08:25 Dose: 120 ml Documented by: Ondansetron HCl (Ondansetron 4 Mg/2 Ml Vial) 4 mg IV Q8H PRN PRN PRN Reason: NAUSEA/VOMITING Prednisone (Prednisone 20 Mg Tablet) 40 mg PO DAILY@0800 [facility] Last Admin: 12/02/20 08:23 Dose: 40 mg Documented by: Sodium Chloride (0.9% Saline Lock 10 Ml Syringe) 10 - 40 ml IV UD PRN PRN Reason: SALINE FLUSH Last Admin: 12/01/20 17:29 Dose: 10 ml Documented by: Medical Necessity - Tobacco Use Smoking Status: Light Smoker (<10/day) Tobacco Use: Cigarettes Assessment/Plan RECOMMENDATIONS: 1. Continue bronchodilators. Complete a 5-day burst of prednisone prior to resumption of 2.5 mg 2. Complete azithromycin course 3. Decrease diuretic therapy 4. Consider evaluation for placement for rehab 5. We will need to wean to baseline 2.5 mg of prednisone on discharge IMPRESSIONS: 1. Acute on chronic hypoxic respiratory failure secondary to COPD exacerbation Patient does not appear to have any infiltrates on exam. However, patient does have advanced emphysematous changes and this may not present on chest x- ray. Would recommend a course of azithromycin. Given rapidity of recovery, cor pulmonale would be a consideration. Patient appears to be responding well to diuretic therapy. Patient should have a walking oximetry prior to discharge. Patient developing contraction alkalosis associated with diuretics. Will decrease diuretics for now. Clinical suspicion for an element of type III pulmonary hypertension secondary to chronic hypertension from a pulmonary perspective due to chronic hypoxemia. This will take time to recover. However, given the oxygen needs, placement in a nursing facility may be necessary as delivering 10+ liters of oxygen at home could present logistic issues. Okay to wean oxygen at rest as long as saturations are greater than 90%. 2. Hypertension/history of small cell lung cancer/CAD status post stents/history of tobacco use/history of noncompliance Complicates care, management, recovery and prognosis. Okay to continue with baseline medications from my perspective. Inpatient E&M: 47267 Subs Hosp L2
--- NOTE | 2020-12-02 09:47 | CASEMGMT ---
Addendum entered by Brandi Willis 12/02/20 16:00: TWILA placed green sheet and transportation forms on chart in the event pre-cert is obtained. Addendum entered by Brandi Willis 12/02/20 15:53: SW asked pt if this worker could call his daughter to give an update and pt gave this worker permission to do so. SW attempted to call his daughter Michell to update, no answer, voicemail is full so SW is unable to leave message. Addendum entered by Brandi Willis 12/02/20 15:40: TWILA received call from Sharona at [facility] stating pre-cert was submitted on the 16 and it was assigned to a CM but nothing has been done since. Sharona states [facility] was going to push pt's case to the top to review and Sharona thinks she still may be able to get pre-cert today. TWILA updated Sharona that this worker is leaving around 4:00pm and to call [facility] main number if pre-cert is obtained. TWILA asked Sharona if she wanted this worker to go ahead and fax the discharge paperwork and Sharona states that this worker can go ahead and fax discharge paperwork. TWILA faxed completed discharge paperwork to [facility] including transfer to extended care facility, signed medication list, any scripts, COVID screening tool and HENS. Original in SNF folder and copy on pt's chart. TWILA completed convalescent 7000 in HENS. Original in SNF folder and copy on pt's chart. Plan: [facility] pending pre-cert Addendum entered by Brandi Willis 12/02/20 15:16: TWILA updated pt that plan is to admit to [facility] whenever pre-cert is obtained. TWILA updated pt that pre-cert is still pending. Addendum entered by Brandi Willis 12/02/20 14:16: TWILA placed a call to Sharona at [facility] to inquire about pre-cert. Sharona states she hasn't heard anything yet, will call pt's insurance and then call this worker back. Original Note: Social Work Note Pt is medically ready for discharge today. Pt will need 10 L oxygen ambulating. TWILA placed a call to Sharona at [facility] and updated her that pt is medically ready for discharge today, will need 10 L with ambulating. Sharona states she will check to make sure they have a 10 L oxygen concentrator. Sharona states she will also call pt's insurance as pre-cert is still pending. Plan: [facility] pending pre-cert Brandi Willis INSPECTOR PLUG SEAM, CONSULTING PRACTICE DIRECTOR
--- NOTE | 2020-12-02 10:06 | PCM.TXEXTCAR ---
- Diet 11/28/20 14:52 Diet: Cardiac - Heart Healthy Food consistency:: Regular Liquid Consistency:: Regular/Thin - Routine Orders/Code Status O2 Liters per Minute: 6 L. go up to 10 L with ambulation O2 Frequency: Continuous Keep PO Greater than or Equal to (%): 90 Code Status: Full Code - Suggestions for Active Care Change Position every (hours): 3 Hours to sit in a chair: 2 Times a day to sit in chair: 3 - Therapies Weight Bearing: Weight bearing as tolerated Physical Therapy: Eval and Treat Occupational Therapy: Eval and Treat - Allergies/Procedures Done in Hospital Allergies/Adverse Reactions: Allergies No Known Allergies Allergy (Verified 06/29/20 14:17) - Type of Care/Length of Stay Estimated LOS: Convalescent Care Less Than 30 days Type of Care Needed: Skilled Rehab Potential: Fair Prognosis: Fair - Additional Orders/Day of Discharge Additional Orders: Prednisone to be taken 40 mg once a day for 3 days then resume his usual dose of prednisone 2.5 mg p.o. daily which he has been on for long time. H&P will serve as current which was dated: 11/28/20 Day of Discharge: 12/02/20 - Dietary and Speech Recommendations Dietitian Recommendations/Changes: Will order ONS w/ medpass for increased nutrition if consumed - Follow Up Care Primary Care Physician: Michell Escamilla ADMINISTRATION CLERK, ADMINISTRATION CLERK-C [Primary Care Provider] - Please follow up with your Primary Care Physician in: 1 week.
[2020-12-02] MEDS: Furosemide 20 MG Tablet PO (10:36)
[2020-12-02] MEDS: Enoxaparin 40 MG/0.4 ML Syringe SC (10:36)
[2020-12-02] MEDS: Atenolol 50 MG Tablet PO (10:37)
[2020-12-02] MEDS: guaiFENesin 1,200 MG Tablet 1200 MG PO ×2 (10:37→21:22)
--- NOTE | 2020-12-02 15:53 | PCM.PROGNOTE ---
Subjective: Chief complaint: Follow-up after admission for acute COPD exacerbation and acute on chronic hypoxic respiratory failure. Patient seen and examined. No acute events overnight. Again, today patient feeling okay, no worsening shortness of breath. Subjectively, he is feeling better. He remains on 6 L of oxygen. Ambulatory pulse ox done again today and again he required up to 10 L of oxygen. He has been on IV Lasix. Other vital signs are stable. - Physical Exam Vitals/I&O's: Vital Signs Temp Pulse Resp BP Pulse Ox 97.9 F 85 20 H 124/74 H 98 12/02/20 12:22 12/02/20 13:14 12/02/20 13:14 12/02/20 12:22 12/02/20 12:22 Oxygen Flow Rate (L/min) [ 10 AMBULATING with Oxygen #2] Oxygen Flow Rate (L/min) [ 6 AMBULATING with Oxygen #1] Oxygen Flow Rate (L/min) [At 0 REST on Room Air] Oxygen Flow Rate (L/min) [ 10 AMBULATING with Oxygen #3] Oxygen Flow Rate (L/min) 6 Oxygen Delivery Method Nasal Cannula Weight: 101 lb 6.602 oz Body Mass Index (BMI) 27.3 Intake and Output for Last 24 Hours 11/30/20 12/01/20 12/02/20 23:59 23:59 23:59 Intake Total 830 / 830 750 / 750 300 / 300 Output Total 500 / 500 950 / 950 650 / 650 Balance 330 / 330 -200 / -200 -350 / -350 General: Alert, Oriented x3, Cooperative, No apparent distress HEENT: Atraumatic, PERRLA, EOMI, Normocephalic Oral: Moist Mucosa, No Gingival or Mucosal Lesions/ Ulcerations Neck: Supple, No JVD, Negative Carotid Bruits, Trachea Midline, Thyroid Normal Size and Texture Lungs: No rales, Diminished, Rhonchi, Wheezes, - - Decreased breath sounds bilateral, occasional wheezes. Cardiovascular: Regular rate, Regular Rhythm, Normal S1, Normal S2, PMI Normal Abdomen: Bowel Sounds Present, Soft, Non Tender, Non-Distended, No Hepato-splenomegaly Extremities: No clubbing, No cyanosis, No edema Skin: No rashes, No breakdown Lymphatic: No Cervical, Supraclavicular, or Inguinal Adenopathy Neurological: Cranial nerves II-XII grossly intact, Neuro grossly intact Psych/Mental Status: Normal Affect, Appropriate Microbiology Past 72 Hours 11/28/20 12:17 Blood Culture (Wb) #2 - Anticubital Left Blood Culture - Preliminary No growth in 48 hours. 11/28/20 11:30 Blood Culture (Wb) - Anticubital Left Blood Culture - Preliminary No growth in 48 hours. Laboratory Results 12/02/20 06:10: WBC 9.2, RBC 3.96 L, Hgb 12.7 L, Hct 39.4 L, MCV 99.5 H, MCH 32.1 H, MCHC 32.2, RDW Std Deviation 46.6 H, RDW Coeff of Jaime 12.6, Plt Count 249, MPV 10.1, Immature Gran % (Auto) 0.800, Neut % (Auto) 81.8 H, Lymph % (Auto) 6.7 L, [place] % (Auto) 10.4 H, Eos % (Auto) 0.1, Baso % (Auto) 0.2, Absolute Neuts (auto) 7.5, Absolute Lymphs (auto) 0.62 L, Nucleated RBC % 0 12/02/20 06:10: Sodium 136, Potassium 4.1, Chloride 91 L, Carbon Dioxide > 45.0 H*, Anion Gap TNP, BUN 41 H, Creatinine 1.06, Estim Creat Clear Calc 38.57, Est GFR (MDRD) Af Amer 87, Est GFR (MDRD) Non-Af 72, BUN/Creatinine Ratio 38.7 H, Glucose 103, Calcium 8.9 Current Medications Acetaminophen (Acetaminophen 325 Mg Tablet) 650 mg PO Q6H PRN PRN PRN Reason: Pain Score 1-10/Temp > 100.7 F Albuterol Sulfate (Albuterol 2.5 Mg/3 Ml Vial.Neb.) 2.5 mg INHALATION Q2H PRN PRN PRN Reason: SOB &/OR WHEEZING Last Admin: 12/02/20 13:14 Dose: 2.5 mg Documented by: Albuterol/Ipratropium (Ipratropium/Albuterol Sulfate 3 Ml Ampul.Neb) 3 ml INHALATION Q4HWA.RT [facility] Last Admin: 12/02/20 10:56 Dose: 3 ml Documented by: Atenolol (Atenolol 50 Mg Tablet) 50 mg PO DAILY [facility] Last Admin: 12/02/20 10:37 Dose: 50 mg Documented by: Enoxaparin Sodium (Enoxaparin 40 Mg/0.4 Ml Syringe) 40 mg SC DAILY [facility] Last Admin: 12/02/20 10:36 Dose: 40 mg Documented by: Guaifenesin (Guaifenesin 1,200 Mg Tablet) 1,200 mg PO BID [facility] Last Admin: 12/02/20 10:37 Dose: 1,200 mg Documented by: Nitroglycerin (Nitroglycerin (Inpatient Use) 0.4 Mg Tab.Subl) 0.4 mg SL Q5M PRN PRN Reason: CARDIAC/CHEST PAIN Nutritional Formula (Lactose Free) (Ensure Enlive 120 Ml Liquid) 120 ml PO 4X/DAY [facility] Last Admin: 12/02/20 13:59 Dose: 120 ml Documented by: Ondansetron HCl (Ondansetron 4 Mg/2 Ml Vial) 4 mg IV Q8H PRN PRN PRN Reason: NAUSEA/VOMITING Prednisone (Prednisone 20 Mg Tablet) 40 mg PO DAILY@0800 [facility] Last Admin: 12/02/20 08:23 Dose: 40 mg Documented by: Sodium Chloride (0.9% Saline Lock 10 Ml Syringe) 10 - 40 ml IV UD PRN PRN Reason: SALINE FLUSH Last Admin: 12/01/20 17:29 Dose: 10 ml Documented by: Medical Necessity - Tobacco Use Smoking Status: Light Smoker (<10/day) Tobacco Use: Cigarettes Assessment/Plan This is a 75 years old male patient presented to the emergency room because of worsening shortness of breath, was admitted for COPD exacerbation and acute on chronic hypoxic respiratory failure. #1 acute COPD exacerbation: Remains on p.o. prednisone today, remains on bronchodilators, IV Lasix discontinued today. Cor pulmonale/secondary pulmonary hypertension is considered. Chest x-ray reviewed, no acute findings. COVID-19 antigen was negative. Patient remained on 6 L of oxygen. Repeat ambulatory pulse oximeter done today and again patient required up to 10 L with ambulation. Plan: Continue same treatment, patient is ready to be discharged to SNF, awaiting insurance approval for placement. #2 acute on chronic hypoxic respiratory failure: Secondary to COPD and possible secondary pulmonary hypertension/cor pulmonale. IV Lasix discontinued. He remains on bronchodilators and p.o. steroids. Plan as above. #3 hypertension: Blood pressure stable, continue atenolol. #4 history of small cell lung cancer: Status post chemotherapy. He has no active disease currently. Recommend follow-up with oncology as outpatient. #5 CAD status post stents: Stable, no complaints. Patient denied any chest pain, troponin is negative. He is only on atenolol. #6 DVT prophylaxis: Subcu Lovenox. This note was generated with [employer] dictation software. It may contain incorrect words, spelling, and punctuation that were not noted in checking the note before signing. Inpatient E&M: 39622 Subs Hosp L2
--- NOTE | 2020-12-02 16:23 | CHAPLAIN ---
Type of Pastoral Visit ___ Initial Visit _x__ Follow-up Visit ___ On-call Visit ___ General Patient Visit ___ Spiritual Assessment ___ Family Conference ___ Bereavement ___ Rapid Response ___ Code Blue ___ Other (describe below) Pastoral Care Referral From ___ Patient ___ Family _x__ Nurse ___ Physician ___ Manager Agency ___ Driver License Agent ___ Other (describe below) Sacrament/Intervention _x__ Active listening ___ Anointing ___ Hinduism ___ Bereavement ___ Communion ___ Gracie exploration ___ ___ Life review _x__ Prayer ___ Reconciliation ___ Sacrament of Sick _x__ Supportive presence ___ Wedding ___ Other (describe below) Pastoral Comments
[2020-12-03] VITALS (11 sets, daily range): BP systolic 109–130; BP diastolic 72–80; PULSE 69–79; RESP 14–22; TEMP 36.4–36.7; O2SAT 98–99
[2020-12-03] MEDS: Ipratropium/Albuterol Sulfate 3 ML AMPUL.NEB INHALATION ×2 (06:58→10:06)
--- NOTE | 2020-12-03 08:45 | NURSING ---
SpO2 92% sitting at side of bed on 4L O2, pt required 6L O2 to maintain 92% on 6L with ambulation.
[2020-12-03] MEDS: predniSONE 20 MG Tablet 40 MG PO (08:51)
[2020-12-03] MEDS: Enoxaparin 40 MG/0.4 ML Syringe SC (08:53)
--- NOTE | 2020-12-03 08:53 | CASEMGMT ---
Addendum entered by Brandi Willis 12/03/20 13:57: TWILA faxed discharge paperwork to Shayy Huitron at [facility]. Addendum entered by Brandi Willis 12/03/20 10:32: TWILA spoke with Physician, paperwork is the same as paperwork that was completed yesterday. SW in to speak with pt. SW updated pt that he will discharge to [facility] today. SW asked pt how he wanted to transport, pt requests cot transport. TWILA informed pt that he may or may not get a bill for transport. Pt states understanding. TWILA spoke with RN, pt is anxious about his breathing, will need to go on 6 L of oxygen. TWILA updated RN that pt is requesting cot transport. TWILA placed a call to [facility] and spoke with Ally. Ally states they can try to get pt approved through insurance for cot transport. TWILA requested anytime for transport as pt is medically ready at anytime. [facility] arranged transportation via cot for 12:30pm. TWILA updated RN. TWILA updated pt and informed pt that his worker will call his daughter Michell to update. Pt states understanding. TWILA placed a call to pt's daughter Michell and updated her on discharge and transportation time. TWILA placed a call to [facility] and updated Sharona on transportation time. TWILA had faxed completed discharge paperwork yesterday and completed convalescent [facility] in [place]. Original in SNF folder and copy on pt's chart. TWILA placed a call to pt's CM Shayy Huitron at [facility] and left message updating her on pt's discharge plan. TWILA placed a call to Rosmery at [facility] and left message updating her on pt's discharge. Plan: [facility] skilled today with [facility] transporting pt via cot at 12:30pm Brandi Willis GETTER WELDER, OIL DISPATCHER Original Note: Social Work Note TWILA received message from Sharona at [facility] stating pt's pre-cert is still pending under [facility] but pt can admit today regardless. Sharona states if she doesn't get pre-cert under [facility] then she can submit for LOC under [facility] Medicaid when pt arrives to the facility. TWILA updated Sharona that discharge is still in from yesterday so pt should still be medically ready. TWILA informed Sharona that this worker will check on discharge paperwork as well to see if there are any changes from yesterday or if the paperwork is the same. Sharona states the paperwork from yesterday is fine if there are no changes. Plan: [facility] today Brandi Willis GETTER WELDER, OIL DISPATCHER
[2020-12-03] MEDS: guaiFENesin 1,200 MG Tablet 1200 MG PO (08:54)
[2020-12-03] MEDS: Atenolol 50 MG Tablet PO (08:54)
--- NOTE | 2020-12-03 09:30 | PCM.PN.PUL ---
Subjective: Patient did well overnight. No acute issues were reported. Patient feels subjectively slightly improved compared to yesterday. Oxygen demands continue to improve. Patient is not reporting any abdominal pain or cough at this time. - Physical Exam Vitals/I&O's: Vital Signs Temp Pulse Resp BP Pulse Ox 36.7 C 71 16 130/78 H 98 12/03/20 07:17 12/03/20 07:17 12/03/20 07:17 12/03/20 07:17 12/03/20 07:17 Oxygen Flow Rate (L/min) [ 10 AMBULATING with Oxygen #2] Oxygen Flow Rate (L/min) [ 6 AMBULATING with Oxygen #1] Oxygen Flow Rate (L/min) [At 0 REST on Room Air] Oxygen Flow Rate (L/min) [ 10 AMBULATING with Oxygen #3] Oxygen Flow Rate (L/min) 4 Oxygen Delivery Method Room Air Weight: 46 kg Body Mass Index (BMI) 27.3 Intake and Output for Last 24 Hours 12/01/20 12/02/20 12/03/20 23:59 23:59 23:59 Intake Total 750 / 750 625 / 975 350 / 350 Output Total 950 / 950 1050 / 1050 200 / 200 Balance -200 / -200 -425 / -75 150 / 150 General: Alert, Oriented x3, Cooperative, No apparent distress, - - No conversational dyspnea HEENT: Atraumatic, PERRLA, EOMI, Normocephalic, - - No scleral icterus or injection noted Oral: Moist Mucosa, No Gingival or Mucosal Lesions/ Ulcerations Neck: Supple, No JVD, No Nodes, Trachea Midline Lungs: No rhonchi, No wheeze, No rales, Diminished, - - Increased AP diameter Cardiovascular: Regular rate, Regular Rhythm, Normal S1, Normal S2, No rub noted, No Gallop Abdomen: Bowel Sounds Present, Soft, Non Tender, Non-Distended Extremities: No clubbing, No cyanosis, No edema Skin: - - No change from previous Musculoskeletal: No Tenderness to Palpation of Joints or Extremities Lymphatic: No Cervical, Supraclavicular, or Inguinal Adenopathy Neurological: Cranial nerves II-XII grossly intact, Neuro grossly intact, Motor Exam 5/5 strength throughout Psych/Mental Status: Normal Affect, Appropriate Microbiology Past 72 Hours 11/28/20 12:17 Blood Culture (Wb) #2 - Anticubital Left Blood Culture - Preliminary No growth in 48 hours. 11/28/20 11:30 Blood Culture (Wb) - Anticubital Left Blood Culture - Preliminary No growth in 48 hours. Current Medications Acetaminophen (Acetaminophen 325 Mg Tablet) 650 mg PO Q6H PRN PRN PRN Reason: Pain Score 1-10/Temp > 100.7 F Albuterol Sulfate (Albuterol 2.5 Mg/3 Ml Vial.Neb.) 2.5 mg INHALATION Q2H PRN PRN PRN Reason: SOB &/OR WHEEZING Last Admin: 12/02/20 13:14 Dose: 2.5 mg Documented by: Albuterol/Ipratropium (Ipratropium/Albuterol Sulfate 3 Ml Ampul.Neb) 3 ml INHALATION Q4HWA.RT [facility] Last Admin: 12/03/20 06:58 Dose: 3 ml Documented by: Atenolol (Atenolol 50 Mg Tablet) 50 mg PO DAILY [facility] Last Admin: 12/03/20 08:54 Dose: 50 mg Documented by: Enoxaparin Sodium (Enoxaparin 40 Mg/0.4 Ml Syringe) 40 mg SC DAILY [facility] Last Admin: 12/03/20 08:53 Dose: 40 mg Documented by: Guaifenesin (Guaifenesin 1,200 Mg Tablet) 1,200 mg PO BID [facility] Last Admin: 12/03/20 08:54 Dose: 1,200 mg Documented by: Nitroglycerin (Nitroglycerin (Inpatient Use) 0.4 Mg Tab.Subl) 0.4 mg SL Q5M PRN PRN Reason: CARDIAC/CHEST PAIN Nutritional Formula (Lactose Free) (Ensure Enlive 120 Ml Liquid) 120 ml PO 4X/DAY [facility] Last Admin: 12/03/20 08:53 Dose: 120 ml Documented by: Ondansetron HCl (Ondansetron 4 Mg/2 Ml Vial) 4 mg IV Q8H PRN PRN PRN Reason: NAUSEA/VOMITING Prednisone (Prednisone 20 Mg Tablet) 40 mg PO DAILY@0800 [facility] Last Admin: 12/03/20 08:51 Dose: 40 mg Documented by: Sodium Chloride (0.9% Saline Lock 10 Ml Syringe) 10 - 40 ml IV UD PRN PRN Reason: SALINE FLUSH Last Admin: 12/01/20 17:29 Dose: 10 ml Documented by: Medical Necessity - Tobacco Use Smoking Status: Light Smoker (<10/day) Tobacco Use: Cigarettes Assessment/Plan RECOMMENDATIONS: 1. Continue bronchodilators. Complete a 5-day burst of prednisone prior to resumption of 2.5 mg 2. Complete azithromycin course 3. Recheck electrolytes in the next 24 to 48 hours 4. Consider evaluation for placement for rehab 5. We will need to wean to baseline 2.5 mg of prednisone on discharge IMPRESSIONS: 1. Acute on chronic hypoxic respiratory failure secondary to COPD exacerbation Patient does not appear to have any infiltrates on exam. However, patient does have advanced emphysematous changes and this may not present on chest x-ray. Would recommend a course of azithromycin. Given rapidity of recovery, cor pulmonale would be a consideration. Patient appears to be responding well to diuretic therapy. Patient should have a walking oximetry prior to discharge. Patient developing contraction alkalosis associated with diuretics. Will decrease diuretics for now. Clinical suspicion for an element of type III pulmonary hypertension secondary to chronic hypertension from a pulmonary perspective due to chronic hypoxemia. This will take time to recover (weeks versus days for exacerbation). However, given the oxygen needs, placement in a nursing facility may be necessary as delivering 10+ liters of oxygen at home could present logistic issues. Okay to wean oxygen at rest as long as saturations are greater than 90%. Patient does appear to be responding well to current therapy. Likely recheck electrolytes in 24 to 48 hours given diuretic therapy 2. Hypertension/history of small cell lung cancer/CAD status post stents/history of tobacco use/history of noncompliance Complicates care, management, recovery and prognosis. Okay to continue with baseline medications from my perspective. Inpatient E&M: 80592 Subs Hosp L2
--- NOTE | 2020-12-03 12:24 | DS.PCM_ITS ---
Discharge Date and Diagnosis Date of Admission: 11/28/20 Date of Discharge: 12/03/20 - Primary Discharge Diagnosis Acute Problems: #1 acute COPD exacerbation. #2 acute on chronic hypoxic respiratory failure. #3 suspected pulmonary hypertension/cor pulmonale. - Secondary Discharge Diagnosis Chronic Problems: Chronic Problems (Last Updated 11/29/20 @ 08:[address] Christal Marie MD) Chronic hypoxemic respiratory failure (Chronic) History of lung cancer (Chronic) COPD (chronic obstructive pulmonary disease) (Chronic) CAD (coronary artery disease) (Chronic) HLD (hyperlipidemia) (Chronic) Small cell lung cancer (Chronic) Mass of left lung (Chronic) Wernicke encephalopathy (Chronic) Alcohol abuse (Chronic) Tobacco abuse (Chronic) Hypertension (Chronic) Benign hypertension (Chronic) Hospital Course and Treatment Imaging Results: Clinical Impression(s) from Imaging Studies Chest X-Ray 11/28/20 11:44 IMPRESSION: COPD/emphysema without acute superimposed cardiopulmonary process. Electronically Signed: Glenn Marquez MD at 13:25 EDT Tel , Service support , Dr. Pendleton, pulmonology. Operations: - Procedures: None Summary of Care Provided: Patient seen and examined on the day of discharge and appeared to be stable to be discharged to longterm facility. He was able to come down to 4 L of oxygen and is feeling better. Other vital signs were stable. The patient is a 75 year old M presented to the emergency room because of worsening shortness of breath, found to have acute COPD exacerbation complicated by acute on chronic hypoxic respiratory failure. Chest x-ray showed chronic COPD and emphysematous changes without acute infiltrate or consolidation. COVID-19 antigen was negative. Routine blood work was remarkable for mild leukocytosis which improved. Patient was treated with IV Solu-Medrol, DuoNeb every 4 hours and albuterol as needed. He remained on 6 days of oxygen and he required up to 10 L with ambulation. Initially, patient stated that he is on 6 L of oxygen at home but apparently, he is only was at 3 L and he has been increasing his oxygen by his own. Because of his long-term COPD emphysema, pulmonary hypertension and cor pulmonale was also suspected. Patient was started on IV Lasix. There was no evidence of acute full-blown acute CHF. With IV diuresis, patient symptoms continue to improve very slowly as well as his oxygenation. On the day of discharge, his oxygen requirement decreased down to 4 L but he remained on higher oxygen requirement upon ambulation. Patient lives alone at home, PT OT evaluated the patient and recommended placement to longterm facility. Patient discharged to longterm facility in a stable condition, discharged on prednisone 40 mg p.o. daily to complete total of 6 days of pulse steroids and then instructed to go down to his usual dose of prednisone at 2.5 mg p.o. daily which she has been on for long time, discharged on bronchodilators including albuterol nebulizer, albuterol inhaler, DuoNeb and budesonide/formoterol inhaler, discharged on oxygen at 4 to 6 L and to maintain his pulse ox around 90%, was started on Lasix 20 mg p.o. daily, recommended follow-up with PCP in 1 week and follow-up with pulmonology as scheduled. - Physical Exam Vitals/I&O's: Vital Signs Temp Pulse Resp BP Pulse Ox 98.1 F 70 14 109/72 99 12/03/20 11:26 12/03/20 11:26 12/03/20 11:26 12/03/20 11:26 12/03/20 11:26 Oxygen Flow Rate (L/min) [ 10 AMBULATING with Oxygen #2] Oxygen Flow Rate (L/min) [ 6 AMBULATING with Oxygen #1] Oxygen Flow Rate (L/min) [At 0 REST on Room Air] Oxygen Flow Rate (L/min) [ 10 AMBULATING with Oxygen #3] Oxygen Flow Rate (L/min) 6 Oxygen Delivery Method Nasal Cannula Weight: 101 lb 6.602 oz Body Mass Index (BMI) 27.3 Intake and Output for Last 24 Hours 12/01/20 12/02/20 12/03/20 23:59 23:59 23:59 Intake Total 750 / 750 625 / 975 350 / 350 Output Total 950 / 950 1050 / 1050 200 / 200 Balance -200 / -200 -425 / -75 150 / 150 General: Alert, Oriented x3, Cooperative, No apparent distress HEENT: Atraumatic, PERRLA, EOMI, Normocephalic Oral: Moist Mucosa, No Gingival or Mucosal Lesions/ Ulcerations Neck: Supple, No JVD, Negative Carotid Bruits, Trachea Midline, Thyroid Normal Size and Texture Lungs: Clear to auscultation, No rhonchi, No wheeze, No rales, Diminished Cardiovascular: Regular rate, Regular Rhythm, Normal S1, Normal S2, PMI Normal Abdomen: Bowel Sounds Present, Soft, Non Tender, Non-Distended, No Hepato- splenomegaly Extremities: No clubbing, No cyanosis, No edema Skin: No rashes, No breakdown Lymphatic: No Cervical, Supraclavicular, or Inguinal Adenopathy Neurological: Cranial nerves II-XII grossly intact, Neuro grossly intact Psych/Mental Status: Normal Affect, Appropriate Microbiology Past 72 Hours 11/28/20 12:17 Blood Culture (Wb) #2 - Anticubital Left Blood Culture - Preliminary No growth in 48 hours. 11/28/20 11:30 Blood Culture (Wb) - Anticubital Left Blood Culture - Preliminary No growth in 48 hours. Current Medications Acetaminophen (Acetaminophen 325 Mg Tablet) 650 mg PO Q6H PRN PRN PRN Reason: Pain Score 1-10/Temp > 100.7 F Albuterol Sulfate (Albuterol 2.5 Mg/3 Ml Vial.Neb.) 2.5 mg INHALATION Q2H PRN PRN PRN Reason: SOB &/OR WHEEZING Last Admin: 12/02/20 13:14 Dose: 2.5 mg Documented by: Albuterol/Ipratropium (Ipratropium/Albuterol Sulfate 3 Ml Ampul.Neb) 3 ml INHALATION Q4HWA.RT [facility] Last Admin: 12/03/20 10:06 Dose: 3 ml Documented by: Atenolol (Atenolol 50 Mg Tablet) 50 mg PO DAILY [facility] Last Admin: 12/03/20 08:54 Dose: 50 mg Documented by: Enoxaparin Sodium (Enoxaparin 40 Mg/0.4 Ml Syringe) 40 mg SC DAILY [facility] Last Admin: 12/03/20 08:53 Dose: 40 mg Documented by: Guaifenesin (Guaifenesin 1,200 Mg Tablet) 1,200 mg PO BID [facility] Last Admin: 12/03/20 08:54 Dose: 1,200 mg Documented by: Nitroglycerin (Nitroglycerin (Inpatient Use) 0.4 Mg Tab.Subl) 0.4 mg SL Q5M PRN PRN Reason: CARDIAC/CHEST PAIN Nutritional Formula (Lactose Free) (Ensure Enlive 120 Ml Liquid) 120 ml PO 4X/DAY [facility] Last Admin: 12/03/20 08:53 Dose: 120 ml Documented by: Ondansetron HCl (Ondansetron 4 Mg/2 Ml Vial) 4 mg IV Q8H PRN PRN PRN Reason: NAUSEA/VOMITING Prednisone (Prednisone 20 Mg Tablet) 40 mg PO DAILY@0800 [facility] Last Admin: 12/03/20 08:51 Dose: 40 mg Documented by: Sodium Chloride (0.9% Saline Lock 10 Ml Syringe) 10 - 40 ml IV UD PRN PRN Reason: SALINE FLUSH Last Admin: 12/01/20 17:29 Dose: 10 ml Documented by: Home Medications: Medications to take at Discharge Nitroglycerin 0.4 mg SL PRN PRN 10/27/16 Atenolol [Tenormin (beta mary)] 50 mg PO DAILY 10/30/16 Albuterol Aerosols [Ventolin Aerosols] 2.5 mg INHALATION Q6H PRN PRN 05/31/17 albuterol sulfate 2.5 mg INHALATION Q4H PRN #180 ml 05/09/19 albuterol sulfate 90 mcg/actuation aerosol inhaler 2 puff INHALATION Q4H PRN #8.5 g 06/29/20 budesonide-formoterol HFA 160 mcg-4.5 mcg/actuation aerosol inhaler 2 puff INHALATION BID #1 device 06/29/20 ipratropium 0.5 mg-albuterol 3 mg (2.5 mg base)/3 mL nebulization soln 3 ml INHALATION Q4H #120 vial 06/29/20 Prednisone 2.5 mg PO DAILY 11/28/20 Furosemide [Lasix] 20 mg PO DAILY #30 tablet 12/02/20 predniSONE tablet 40 mg PO DAILY #6 tablet 12/02/20 Following Prescriptions Were Given to Patient: Furosemide [Lasix] 20 mg PO DAILY #30 tablet Prescription Printed predniSONE tablet 40 mg PO DAILY #6 tablet Prescription Printed Primary Care Physician: Michell Escamilla [employer] DRIVER, [employer] DRIVER-C [Primary Care Provider] - Please follow up with your Primary Care Physician in: 1 week. Disposition: Long-Term facility Minutes spent on discharge:: 32 Patient Condition:: Stable Medical Necessity - Tobacco Use Smoking Status: Light Smoker (<10/day) Tobacco Use: Cigarettes Meaningful Use Info Meaningful Use Diagnoses (Choose all that apply): None applicable Inpatient E&M: 97407 Disch Hosp
[2020-12-03] MEDS: Albuterol 2.5 MG/3 ML VIAL.NEB. INHALATION (12:25)
--- NOTE | 2020-12-03 12:42 | NURSING ---
Report called to SHELLEY Ochoa at [facility]
== END 2020-12-03 13:08 | disposition skilled nursing facility (03) | DRG 190 ==
LOC: ED 12:49 → MS3 14:21
PROVIDERS: Internal Medicine Critical Care Medicine; Admitting Provider Student in an Organized Health Care Education/Training Program; Emergency Provider Emergency Medicine; PCP Nurse Practitioner Adult Health; Visit Provider Hospitalist
DX: J44.1 Chronic obstructive pulmonary disease with (acute) exacerbation (principal); J96.21 Acute and chronic respiratory failure with hypoxia; E87.4 Mixed disorder of acid-base balance; E51.2 Wernicke's encephalopathy; J44.0 Chronic obstructive pulmonary disease with (acute) lower respiratory infection; Z92.21 Personal history of antineoplastic chemotherapy; Z85.118 Personal history of other malignant neoplasm of bronchus and lung; Z66 Do not resuscitate; E78.5 Hyperlipidemia, unspecified; I10 Essential (primary) hypertension; I25.10 Atherosclerotic heart disease of native coronary artery without angina pectoris; I27.81 Cor pulmonale (chronic); I27.29 Other secondary pulmonary hypertension; Z60.2 Problems related to living alone; Z82.49 Family history of ischemic heart disease and other diseases of the circulatory system; Z82.5 Family history of asthma and other chronic lower respiratory diseases; Z91.19 Patient's noncompliance with other medical treatment and regimen; Z95.5 Presence of coronary angioplasty implant and graft; F17.210 Nicotine dependence, cigarettes, uncomplicated; Z99.81 Dependence on supplemental oxygen
CPT/HCPCS: 36415; 71045; 80048; 83605; 84484; 85025; 87040; 87426; 93005; 94640; 94667; 94668; 97162; 97166; 97530; 99251; 99285; 99406; J7030; A4216; G0463; J1940

== ENCOUNTER → 2021-05-03 13:10 | Outpatient (CLI) | payer MEDICARE, MEDICAID, SELFPAY ==
[2020-11-28 14:53] VITALS: BMI 27.3
[2021-04-12 13:46] VITALS: BMI 22.6
--- NOTE | 2021-05-03 13:13 | CT_ITS ---
STUDY: CT CHEST WITH CONTRAST REASON FOR EXAM: Male, 75 years old. MONITORING-LUNG CA RADIATION DOSAGE (If Supplied By Facility): CTDIvol = ( 10.14 ) mGy, DLP = ( 313.42 ) mGycm TECHNIQUE: Transaxial imaging was performed following intravenous administration of isovue 300 100ml. Individualized dose optimization techniques were used for this CT. COMPARISON: 04/21/2020 FINDINGS: 6-7 mm medial right lower lobe subpleural nodule is similar to 04/21/2020. 4 mm inferior right upper lobe subpleural nodule unchanged. Similar scarring in the anterior right middle lobe base and left upper lobe. There is debris in the right bronchus to the middle/lower lobes. The lungs are normal. There is no demonstrated pleural abnormality. Normal heart and pericardium. Normal mediastinum. Normal hilar regions. Normal enhanced pulmonary arteries. Normal aorta arch and descending thoracic aorta. Normal osseous structures. There is no demonstrated abnormality of the visualized upper abdomen. CT/Chest WITH Contrast IMPRESSION: Debris in the right bronchus to the middle/lower lobes. No significant change. Subcentimeter right lung nodules. Electronically Signed: Leonardo Boothe MD at 0:32 EDT Tel , Service support ,
[2021-05-03 13:40] LABS: CREATININE FINGERSTICK 0.9 mg/dL (0.70-1.30); EGFR FINGERSTICK > 60.0000 mL/min (>60)
== END ==
PROVIDERS: PCP Internal Medicine; Referring Provider Internal Medicine Medical Oncology; Visit Provider Internal Medicine Medical Oncology
DX: Z85.118 Personal history of other malignant neoplasm of bronchus and lung (principal)
CPT/HCPCS: 71260; Q9967

== ENCOUNTER → 2021-09-12 14:35 | Outpatient (CLI) | payer MEDICARE, SELFPAY ==
--- NOTE | 2021-09-12 14:43 | RAD_ITS ---
INDICATION: shortness of breath EXAMINATION/TECHNIQUE: X-RAY - XR Chest 2 Views COMPARISON: 05/03/2021 and 11/28/2020.. FINDINGS: LINES/DEVICES: None. Christy-bronchial cuffing and bilateral hilar prominence visualized demonstrating no significant change in comparison to the prior study. Mild prominence of the perihilar bronchovascular markings is visualized but no evidence of focal lung opacification or consolidation. Prominent pericardial fat pads are visualized that demonstrate no change. Emphysematous changes visualized in bilateral lung jones is increased volumes. No evidence of pneumothorax or pleural effusion, no evidence of parenchymal lung masses seen. The cardiac mediastinal silhouette is unremarkable in contour, atherosclerotic calcifications visualized in the aortic arch. Degenerative bone changes are seen. RAD/Chest PA and Lateral IMPRESSION: COPD changes correlate for COPD exacerbation. Electronically Signed: Bert Montalvo MD at 16:00 EST Tel , Service support ,
[2021-09-12 18:05] LABS: Anion Gap 6 (5-15); BUN 16 mg/dL (7-18); BUN/Creat Ratio 18.8 RATIO (10-20); Calcium,Total 9.1 mg/dL (8.5-10.1); Chloride 99 mmol/L (98-107); Creatinine, Serum 0.85 mg/dL (0.70-1.30); EST Glomerular Filtration Rate 93 mL/min (>60); Est Glom Filt Rate - Afr Amer 112 mL/min (>60); Glucose 86 mg/dL (74-106); Potassium 4.4 mmol/L (3.5-5.1); Sodium Level 140 mmol/L (136-145)
[2021-09-12 18:06] LABS: BNP,B-Type NATRIURETIC PEPTIDE 93.8 pg/mL (0-100)
== END ==
PROVIDERS: PCP Internal Medicine; Referring Provider Nurse Practitioner Acute Care; Visit Provider Nurse Practitioner Acute Care
DX: J44.9 Chronic obstructive pulmonary disease, unspecified (principal); J96.11 Chronic respiratory failure with hypoxia; R06.02 Shortness of breath
CPT/HCPCS: 36415; 71046; 80048; 83880; 87070; 87077; 87186; 87205

== ENCOUNTER → 2022-07-26 | Outpatient (CLI) | payer MEDICARE, MEDICAID, SELFPAY ==
--- NOTE | 2022-07-26 12:51 | CT_ITS ---
STUDY: CT CHEST WITH CONTRAST REASON FOR EXAM: Male, 76 years old. MONITOR LUNG CA RADIATION DOSAGE (If Supplied By Facility): CTDIvol = ( 12.15 ) mGy, DLP = ( 305.81 ) mGycm TECHNIQUE: Transaxial imaging was performed following intravenous administration of IV 100mL Isovue-300. Multiplanar coronal and sagittal images were reformatted. Individualized dose optimization techniques were used for this CT. COMPARISON: Comparison is made with prior examination dated 05/03/2021. FINDINGS: CHEST Hyperinflation. Emphysematous changes worse in the upper lobes. Stable bullous formation in the anterior medial aspect of the right. The previously seen nodular density in the posterior aspect of the right lower lobe as seen on axial Image #90 has decreased in size. It presently measures 6.5 mm. A linear scar abuts the pleural surface. Stable 4 mm noncalcified nodule along the posterior medial aspect of the right upper lobe as seen on axial image #41. There is no demonstrated pleural abnormality. There are calcifications of the coronary arteries. Normal mediastinum. Normal hilar regions. Normal unenhanced pulmonary arteries. There is atherosclerotic calcification of the aortic arch with tortuosity and elongation of the aortic arch and descending thoracic aorta. There is demineralization of the thoracic spine. Sludge is seen in the gallbladder lumen. CT/Chest WITH Contrast IMPRESSION: Stable examination. Electronically Signed: Geo Medel MD at 14:01 EST ,
[2022-07-26 13:11] LABS: CREATININE FINGERSTICK < 0.9 mg/dL (0.70-1.30); EGFR FINGERSTICK > 60.0000 mL/min (>60)
== END | disposition home or self-care (01) ==
PROVIDERS: PCP Internal Medicine; Referring Provider Internal Medicine Medical Oncology; Visit Provider Internal Medicine Medical Oncology
DX: C34.12 Malignant neoplasm of upper lobe, left bronchus or lung (principal)
CPT/HCPCS: 71260; Q9967

== ENCOUNTER 2023-07-20 10:21 | Inpatient (IN) | payer MEDICARE, MEDICAID, SELFPAY ==
[2023-07-20] VITALS (13 sets, daily range): BP systolic 94–155; BP diastolic 60–102; PULSE 71–111; RESP 14–25; TEMP 35.5–36.9; O2SAT 6–100; BMI 18.5; BMI 23.7
[2023-07-20] MEDS: Albuterol 2.5 MG/3 ML VIAL.NEB. INHALATION (10:34)
[2023-07-20] MEDS: Ipratropium/Albuterol Sulfate 3 ML AMPUL.NEB INHALATION ×3 (10:34→23:16)
--- NOTE | 2023-07-20 10:34 | EKG12_ITS ---
Test Reason : Blood Pressure : / mmHG Vent. Rate : 102 BPM Atrial Rate : 102 BPM P-R Int : 136 ms QRS Dur : 086 ms QT Int : 338 ms P-R-T Axes : 085 082 255 degrees QTc Int : 440 ms Sinus tachycardia with frequent Premature ventricular complexes in a pattern of bigeminy Right atrial enlargement ST & T wave abnormality, consider inferolateral ischemia Abnormal ECG Confirmed by DAVID MEAZ, CHLOÉ ([id number]), development editor CEM LIRA ([id number]) on 07/30/2023 7:45:27 AM Referred By: Confirmed By:CECI HERNANDEZ MD
--- NOTE | 2023-07-20 10:35 | ED.VIS.DYS ---
HPI History of Present Illness Chief Complaint: Shortness of Breath Narrative Narrative: 77-year-old male past medical history of COPD, hyperlipidemia, chronic respiratory failure wears 8 to 10 L of oxygen at all times presents mainly because of discolored foot on the right. His daughter who is with him states that whenever he goes to the physician or outside, he has increasing shortness of breath because the portable oxygen is not sufficient, and additionally she noted that the tubing was kinked. She states that he was leaning on his right lower extremity, and she noticed that his whole foot was purple in color. She called the doctor's office and was told to come to the emergency department for evaluation. His condition has significantly improved and the discoloration on his right foot except for an area where there is a wound on his right ankle that is chronic. Patient presents to the emergency department for evaluation of his right foot discoloration, and additionally because of his increasing shortness of breath. [facility] Medical History Alcohol abuse Benign hypertension CAD (coronary artery disease) COPD (chronic obstructive pulmonary disease) History of lung cancer HLD (hyperlipidemia) Hypertension Mass of left lung Pneumothorax after biopsy Pneumothorax of left lung after biopsy Small cell lung cancer Tobacco abuse Wernicke encephalopathy Home Medications nitroglycerin 0.4 mg sublingual tablet 0.4 mg sublingual PRN PRN chest pain 10/27/16 [History Last Taken Unknown] food supplemt, lactose-reduced 0.05 gram-1.5 kcal/mL oral liquid (Ensure Plus) See Rx Instructions PO .3 x a day #90 BOTTLES 09/28/21 [Rx Last Taken Unknown] furosemide 20 mg tablet 20 mg PO DAILY #90 tabs 09/20/22 [Rx Last Taken 07/20/23] prednisone 2.5 mg tablet 2.5 mg PO DAILY #90 tabs 09/20/22 [Rx Last Taken 07/20/23] albuterol sulfate 2.5 mg/3 mL (0.083 %) solution for nebulization 2.5 mg (3 mL) inhalation Q4H PRN shortness of breath or wheezing #180 mL 11/15/22 [Rx Last Taken Unknown] electric/hospital bed #1 ea 02/01/23 [Rx Last Taken Unknown] motorized wheelchair #1 ea 02/01/23 [Rx Last Taken Unknown] atenolol 50 mg tablet 50 mg PO DAILY #90 tabs 03/22/23 [Rx Last Taken 07/20/23] albuterol sulfate 90 mcg/actuation aerosol inhaler 2 puff inhalation Q4H PRN shortness of breath or wheezing #3 ea 06/13/23 [Rx Last Taken 07/20/23] budesonide-formoterol HFA 160 mcg-4.5 mcg/actuation aerosol inhaler (Symbicort) 2 puff inhalation BID #3 device 06/13/23 [Rx Last Taken 07/20/23] ipratropium 0.5 mg-albuterol 3 mg (2.5 mg base)/3 mL nebulization soln 3 ml inhalation Q4H #120 vials 06/13/23 [Rx Last Taken Unknown] Allergy/AdvReac Type Severity Reaction Status Date / Time No Known Allergies Allergy Verified 07/20/23 10:22 Family History Mother Emphysema lung Father Heart disease Surgical History H/O repair of rotator cuff History of heart artery stent Social History Smoking Status: Former smoker alcohol intake: former year quit: 2020 details: 6 yudith beer every weekend substance use type: does not use ROS ROS ED ROS Narrative Constitutional: No fever, no chills. HEENT: No sore throat. No neck pain. No loss of vision. No rhinorrhea. Cardiovascular: No chest pain. No palpitations. No pedal edema. Respiratory: Positive cough, positive shortness of breath. Abdominal: No abdominal pain. No nausea. No vomiting. Genitourinary: No dysuria. No hematuria. Musculoskeletal: No myalgias. No arthralgias. Neurologic: No headaches. No dizziness. No lightheadedness. Skin: No rash. No change in color. Positive wound right lateral ankle. Reported discoloration of right foot purple. Psychiatric: No depression. No anxiety. EXAM Physical Exam Narrative Exam Narrative: Afebrile. Vital signs noted. HEENT: Normocephalic. Atraumatic. PERRL, EOMI. Neck soft and supple. No point tenderness or step off. Cardiovascular: Regular rate and rhythm with intermittent tachycardia. No murmurs, rubs, or gallops appreciated. Respiratory: Mild tachypnea. Decreased breath sounds bilateral. Gastrointestinal: Abdomen soft, nontender, with normoactive bowel sounds. No rebound or guarding. Neurological: Awake. Alert. Nonfocal, nonlateralizing. Skin: No rash. Normal color. No pallor. There is a chronic ulcer on the right lateral ankle with surrounding discoloration. Musculoskeletal: No pedal edema. Full range of motion extremities. Palpable dorsalis pedis pulses bilaterally. Const Vital Signs: 07/20/23 10:22 07/20/23 10:28 07/20/23 10:30 Temperature 96.8 F L Temperature Source Axillary Pulse Rate 111 H 103 H Respiratory Rate 20 H 24 H Respiratory Effort Non-Labored Short of Breath Respiratory Pattern Grunting Blood Pressure 155/102 H Blood Pressure Mean 119 Pulse Ox 100 100 Oxygen Delivery Method High Flow High Flow Oxygen Flow Rate (L/min) 10 10 07/20/23 10:25 07/20/23 10:34 07/20/23 11:21 Temperature Temperature Source Pulse Rate 110 H 80 Respiratory Rate 25 H 16 Respiratory Effort Respiratory Pattern Blood Pressure 106/92 H Blood Pressure Mean 96 Pulse Ox 98 Oxygen Delivery Method Room Air Room Air Oxygen Flow Rate (L/min) 07/20/23 12:00 07/20/23 12:37 Temperature Temperature Source Pulse Rate 88 93 Respiratory Rate 19 H 17 Respiratory Effort Respiratory Pattern Blood Pressure 110/60 110/60 Blood Pressure Mean 76 76 Pulse Ox 100 99 Oxygen Delivery Method Room Air Oxygen Flow Rate (L/min) MDM MDM MDM Narrative Medical decision making narrative: We will also document dopplered pulses, he may have some degree of peripheral artery disease, but his foot is not discolored except for the area of the healing ulceration. For his respiratory distress, he will be given an aerosolized treatment and was placed on a mask. COPD work-up is high in the differential. I reviewed the patient's laboratory work. He has slightly elevated white count of 11.4 which I think is nonspecific, hemoglobin stable at 11.5, platelet count normal at 309. Review of his PT and INR are normal. I reviewed his BMP and he has a normal sodium of 140, potassium normal at 4.1, labs are consistent with acute kidney injury with slightly elevated creatinine of 1.39 above his normal baseline, BUN elevated at 23. Although his glucose is 187, he has a normal anion gap of 10. I have no concern for diabetic ketoacidosis. Of significance is his troponin which is elevated at 2754. I do think this is elevated over normal and not from acute kidney injury. He may have more of an ischemic demand from his COPD. I administered aspirin and started the patient on heparin. In discussion with the patient and his daughter, patient did have a remote PR, but does not take daily aspirin and does not see a upholstery restorer regularly. There may be some degree of medication noncompliance as well. EKG interpreted by myself independently demonstrates sinus tachycardia at 102 bpm with frequent PVCs but no acute ST changes. No STEMI. I do feel that he has more of a non-STEMI type picture. His breathing has improved after DuoNeb aerosolized treatment. Initially, I discussed patient with Dr. Liu Hay who wanted me to discuss the patient with the upholstery restorer on-call, Dr. Rodriguez. I discussed patient with Dr. Rodriguez and it was not felt that he requires transfer and that it may be more of an ischemic demand so the patient will not go to the Security Expert currently, but they will trend his troponins. Was reported that his repeat troponin was 2500 approximately and stable if not downtrending. Patient was then discussed with Dr. Tilley who will admit the patient to the PCU. Currently, patient is in stable condition. History & Record Review Discussion w/independent historian: Patient and Family Additional record(s) reviewed:: Prior ED visit and Prior labs Lab Data Attestation: I reviewed the patient's lab results. Labs: Laboratory Results - last 24 hr 07/20/23 10:30 WBC 11.4 H RBC 3.72 L Hgb 11.5 L Hct 37.2 L MCV 100.0 H MCH 30.9 MCHC 30.9 L RDW Std Deviation 48.6 H RDW Coeff of Jaime 13.2 Plt Count 309 MPV 10.5 Immature Gran % (Auto) 0.500 Neut % (Auto) 53.3 Lymph % (Auto) 33.0 [place] % (Auto) 11.4 H Eos % (Auto) 1.1 Baso % (Auto) 0.7 Absolute Neuts (auto) 6.1 Absolute Lymphs (auto) 3.77 Nucleated RBC % 0 PT 13.2 INR 1.0 APTT 24.2 Sodium 140 Potassium 4.1 Chloride 99 Carbon Dioxide 31.0 Anion Gap 10 BUN 23 H Creatinine 1.39 H Estim Creat Clear Calc 27.51 Est GFR (MDRD) Af Amer 63 Est GFR (MDRD) Non-Af 52 L BUN/Creatinine Ratio 16.5 Glucose 187 H Calcium 9.3 Troponin I High Sens 2754 H* Radiography Diagnostic Testing: Clinical Impression(s) from Imaging Studies Chest X-Ray 07/20/23 11:06 IMPRESSION: Hyperinflation. No acute abnormality is seen. Electronically Signed: Geo Medel MD at 11:20 EDT , Management Discussion w/another healthcare provider: Hospitalist (Dr. Hay, Dr. Joseph) and Instant Powder Supervisor (Dr. Rodriguez) Discharge Plan Triage Chief Complaint: Shortness of Breath ED Provider: Dada Lou Dx/Rx/DC Orders Primary Care Provider: Veronica May
[2023-07-20 10:43] LABS: Absolute Lymphocyte Count 3.77 X10^3/uL (0.83-4.51); Absolute Neutrophil Count 6.1 X10^3/uL (2.0-7.7); Basophil# 0.08 X10^3/uL; Basophil% 0.7 % (0-1); Eosinophil# 0.12 X10^3/uL; Eosinophils% 1.1 % (0-5); Hematocrit 37.2 % (40-54); Hemoglobin 11.5 g/dL (13.0-16.5); Lymphocyte # 3.77 X10^3/ul (0.83-4.51); Mean Corp Hgb Conc 30.9 g/dL (32-36); Mean Corpuscular Hgb 30.9 pg (27.0-32.0); Mean Platelet Vol. 10.5 fl (6.2-12.0); Monocyte% 11.4 % (0-10); NRBC Flagged by Analyzer 0 % (0-5); Neutrophil # 6.08 X10^3/uL (2.7-7.7); Neutrophil % 53.3 % (47-70); Platelet Count 309 K/mm3 (150-450); RBC Distribution Width CV 13.2 % (11.6-14.6); RBC Distribution Width SD 48.6 fl (35.1-43.9); Red Blood Count 3.72 M/mm3 (4.6-6.2); White Blood Count 11.4 K/mm3 (4.4-11.0)
[2023-07-20 11:01] LABS: Anion Gap 10 (5-15); BUN 23 mg/dL (7-18); BUN/Creat Ratio 16.5 RATIO (10-20); Calcium,Total 9.3 mg/dL (8.5-10.1); Chloride 99 mmol/L (98-107); Creatinine, Serum 1.39 mg/dL (0.70-1.30); EST Glomerular Filtration Rate 52 mL/min (>60); Est Glom Filt Rate - Afr Amer 63 mL/min (>60); Estimated Creatinine Clearance 27.51 ml/min; Glucose 187 mg/dL (74-106); Potassium 4.1 mmol/L (3.5-5.1); Sodium Level 140 mmol/L (136-145); Troponin-I HS 2754 pg/mL (3.0-78.0)
--- NOTE | 2023-07-20 11:06 | RAD_ITS ---
STUDY: X-RAY CHEST REASON FOR EXAM: Male, 77 years old. Shortness of breath TECHNIQUE: Single AP portable view of the chest. COMPARISON: Comparison is made with prior study dated September 12, 2021. FINDINGS: EKG electrodes are seen. There is hyperinflation of the lungs consistent with chronic obstructive lung disease (COPD). Scarring at the lung apices. There is no demonstrated pleural abnormality. Normal size heart. Normal mediastinum and arnold. Normal visualized pulmonary arteries. There is atherosclerotic calcification of the aortic arch with tortuosity. Normal visualized thoracic spine. There is degenerative osteoarthritis of the bilateral shoulders. There is no demonstrated abnormality of the visualized soft tissue structures of the upper abdomen. RAD/Chest 1 View (Portable) IMPRESSION: Hyperinflation. No acute abnormality is seen. Electronically Signed: Geo Medel MD at 11:20 EDT ,
[2023-07-20] MEDS: Heparin Injection (Vial) 5,000 UNIT/ML VIAL 3000 UNIT IV (12:32)
[2023-07-20] MEDS: Aspirin 81 MG TAB.CHEW 324 MG PO (12:32)
[2023-07-20] MEDS: HEPARIN/D5w 25,000 UNITS 25,000 UNITS/250 ML IV.SOLN. 5.5 UNITS CONT INF (12:33)
[2023-07-20 13:05] LABS: Prothrombin Time (Protime)PT. 13.2 SECONDS (11.7-14.9)
[2023-07-20 13:06] LABS: Partial Thromboplast Time 24.2 Seconds (24.1-36.2)
--- NOTE | 2023-07-20 13:16 | PCM.HP.STD ---
[facility] - General General Date of Admission: 07/20/23 Date of Service: 07/20/23 Chief Complaint: SOB and Purplish Discoloration of the Right foot. HPI Narrative NEERAJ GOINS, is a 77 M with a past medical history of essential hypertension, hyperlipidemia, remote history of coronary artery disease with previous NE approximately 25 years ago with stent placement, history of alcohol abuse; with subsequent Wernicke's encephalopathy with patient now down to a sixpack over the weekends, COPD with ongoing tobacco abuse, chronic hypoxic respiratory failure requiring 8 to 10 L of oxygen continuously, history of small cell lung cancer with pneumothorax after biopsy of the Left lung and severe peripheral vascular disease primarily on the right foot with a chronic ulcer on his Right Lateral malleolus who presents to [facility] ER complaining of shortness of breath and discoloration of his right foot. According to the ER records his oxygen tubing had apparently become kinked and he immediately became short of breath with worsening discoloration of his foot so they called his primary care provider's office who then directed to come to the ER for further evaluation and treatment. Once his oxygen delivery was reestablished his symptoms virtually resolved and he denies associated fever, chills, nausea, vomiting, headache, chest pain or chest pressure. In the ER his evaluation was essentially unremarkable for acute pathologic changes except for an elevated troponin of 2,754 pg/mL consistent with a suspected non-STEMI type II due to demand ischemia from a transient disruption of his supplemental oxygen with a second troponin decreasing to 2,519 pg/mL and he was then admitted to the PCU for ongoing care for a stay that is expected to extend beyond 48 hours. [facility], [facility] Medical History Alcohol abuse Benign hypertension CAD (coronary artery disease) COPD (chronic obstructive pulmonary disease) History of lung cancer HLD (hyperlipidemia) Hypertension Mass of left lung Pneumothorax after biopsy Pneumothorax of left lung after biopsy Small cell lung cancer Tobacco abuse Wernicke encephalopathy Home Medications nitroglycerin 0.4 mg sublingual tablet 0.4 mg sublingual PRN PRN chest pain 10/27/16 [History Last Taken Unknown] food supplemt, lactose-reduced 0.05 gram-1.5 kcal/mL oral liquid (Ensure Plus) See Rx Instructions PO .3 x a day #90 BOTTLES 09/28/21 [Rx Last Taken Unknown] furosemide 20 mg tablet 20 mg PO DAILY #90 tabs 09/20/22 [Rx Last Taken 07/20/23] prednisone 2.5 mg tablet 2.5 mg PO DAILY #90 tabs 09/20/22 [Rx Last Taken 07/20/23] albuterol sulfate 2.5 mg/3 mL (0.083 %) solution for nebulization 2.5 mg (3 mL) inhalation Q4H PRN shortness of breath or wheezing #180 mL 11/15/22 [Rx Last Taken Unknown] electric/hospital bed #1 ea 02/01/23 [Rx Last Taken Unknown] motorized wheelchair #1 ea 02/01/23 [Rx Last Taken Unknown] atenolol 50 mg tablet 50 mg PO DAILY #90 tabs 03/22/23 [Rx Last Taken 07/20/23] albuterol sulfate 90 mcg/actuation aerosol inhaler 2 puff inhalation Q4H PRN shortness of breath or wheezing #3 ea 06/13/23 [Rx Last Taken 07/20/23] budesonide-formoterol HFA 160 mcg-4.5 mcg/actuation aerosol inhaler (Symbicort) 2 puff inhalation BID #3 device 06/13/23 [Rx Last Taken 07/20/23] ipratropium 0.5 mg-albuterol 3 mg (2.5 mg base)/3 mL nebulization soln 3 ml inhalation Q4H #120 vials 06/13/23 [Rx Last Taken Unknown] Allergy/AdvReac Type Severity Reaction Status Date / Time No Known Allergies Allergy Verified 07/20/23 10:22 Family History Mother Emphysema lung Father Heart disease Surgical History H/O repair of rotator cuff History of heart artery stent Social History Smoking Status: Former smoker alcohol intake: former year quit: 2020 details: 6 yudith beer every weekend substance use type: does not use Prior Cardiac Testing/Procedures Prior Cardiac Testing/Procedures: Stenting and Cardiac Angiogram ROS ROS Narrative Patient appears chronically ill but is alert and appropriate. His family is at the bedside to augment the history. He denies significant chest pain shortness of breath or other symptoms at this time. Constitutional Constitutional: Reports fatigue Respiratory/Chest Respiratory/Chest: Reports cough and dyspnea Musculoskeletal Musculoskeletal: Reports myalgias Vital Signs Vital Signs Vital Signs: 07/20/23 10:22 07/20/23 10:28 07/20/23 10:30 Temperature 96.8 F L Temperature Source Axillary Pulse Rate 111 H 103 H Respiratory Rate 20 H 24 H Respiratory Effort Non-Labored Short of Breath Respiratory Pattern Grunting Blood Pressure 155/102 H Blood Pressure Mean 119 Pulse Ox 100 100 Oxygen Delivery Method High Flow High Flow Oxygen Flow Rate (L/min) 10 10 07/20/23 10:25 07/20/23 10:34 07/20/23 11:21 Temperature Temperature Source Pulse Rate 110 H 80 Respiratory Rate 25 H 16 Respiratory Effort Respiratory Pattern Blood Pressure 106/92 H Blood Pressure Mean 96 Pulse Ox 98 Oxygen Delivery Method Room Air Room Air Oxygen Flow Rate (L/min) 07/20/23 12:00 07/20/23 12:37 07/20/23 13:05 Temperature Temperature Source Pulse Rate 88 93 77 Respiratory Rate 19 H 17 15 Respiratory Effort Respiratory Pattern Blood Pressure 110/60 110/60 94/65 Blood Pressure Mean 76 76 74 Pulse Ox 100 99 99 Oxygen Delivery Method Room Air Nasal Cannula Oxygen Flow Rate (L/min) 6 Weight Weight: 97 lb 14.164 oz Body Mass Index (BMI) 18.5 Physical Exam Const alert, oriented x3 and no apparent distress Constitutional Narrative: Patient appears chronically ill and mildly malnourished with a 'pink puffer' phenotype barrel-shaped chest. General Appearance: cooperative HEENT normocephalic, head/scalp atraumatic and hearing grossly normal bilaterally Eyes PERRL, EOMs intact bilaterally and conjunctivae normal Neck no lymphadenopathy Resp normal respiratory effort Resp Narrative: Decreased air movement throughout. Cardio regular rate GI normal to inspection, nondistended, normoactive bowel sounds, soft to palpation, non-tender and non-distended Extremity Extremity Narrative: Patient has an approximately 2 cm clean healing ulcer near his Right medial malleolus. Skin Skin Narrative: Patient has approximately 2 cm complete healing ulcer near his right medial malleolus. Neuro oriented x3, CN's II-XII intact bilaterally, moves all extremities and no focal motor deficits Sensorium / Orientation: awake, alert, oriented to person and oriented to place Speech: speech normal Psych affect normal Results Lab / Micro Data 07/20/23 10:30 07/20/23 10:30 Labs: Laboratory Results - last 24 hr 07/20/23 10:30: WBC 11.4 H, RBC 3.72 L, Hgb 11.5 L, Hct 37.2 L, MCV 100.0 H, MCH 30.9, MCHC 30.9 L, RDW Std Deviation 48.6 H, RDW Coeff of Jaime 13.2, Plt Count 309, MPV 10.5, Immature Gran % (Auto) 0.500, Neut % (Auto) 53.3, Lymph % (Auto) 33.0, [place] % (Auto) 11.4 H, Eos % (Auto) 1.1, Baso % (Auto) 0.7, Absolute Neuts (auto) 6.1, Absolute Lymphs (auto) 3.77, Nucleated RBC % 0, PT 13.2, INR 1.0, APTT 24.2, Sodium 140, Potassium 4.1, Chloride 99, Carbon Dioxide 31.0, Anion Gap 10, BUN 23 H, Creatinine 1.39 H, Estim Creat Clear Calc 27.51, Est GFR (MDRD) Af Amer 63, Est GFR (MDRD) Non-Af 52 L, BUN/Creatinine Ratio 16.5, Glucose 187 H, Calcium 9.3, Troponin I High Sens 2754 H* Radiology Impression Chest X-Ray 07/20/23 11:06 IMPRESSION: Hyperinflation. No acute abnormality is seen. Electronically Signed: Geo Medel MD at 11:20 EDT , Assessment & Plan Assessment/Plan (1) NSTEMI, initial episode of care: PLAN: Plan 1. Elevated troponin of 2,753 pg/mL present on admission consistent with a suspected non-STEMI type II secondary to demand ischemia with temporary disruption of his supplemental oxygen in the setting of known previous NE 25 years ago with stent placement - Admit to PCU and trend troponins as per cardiology recommendations. Continue IV heparin and aspirin and initiate treatment with Plavix and statin. Right now the plan is to manage this patient medically but if his troponins continue to trend upward he may require intervention. Cardiology consultation is greatly appreciated. 2. Advanced COPD with chronic hypoxic respiratory failure on 8 to 10 L continuously with remote history of lung cancer and pneumothorax after left lung biopsy complicating #1 - Patient has no sign of flare at this time. We will continue as needed nebulizers and supplemental oxygen as previous. Once again smoking cessation has been strongly encouraged. 3. Chronic severe peripheral vascular disease with ulceration over his Right lateral malleolus that does not appear to be acutely infected -continue supportive care. We will consult the wound management nurse to see this patient this admission for further recommendations with help appreciated in advance. 4. History of alcohol abuse with subsequent Wernicke's encephalopathy and reporting ingesting a sixpack over the weekends -we will give oral thiamine and folate supplementation and monitor closely for any signs of withdrawal which is unlikely given his current decreased levels of alcohol use. 5. Essential hypertension - Continue atenolol as previous. 6. Hyperlipidemia - Resume statin as previous and check lipid profile in the a.m. 7. DVT prophylaxis -patient is already on IV heparin for #1 which will be continued. Total time: Approximately 55 minutes.
--- NOTE | 2023-07-20 13:23 | PCM.CONS.C ---
Assessment & Plan Assessment/Plan (1) NSTEMI, initial episode of care: PLAN: Appears to be a type II event due to hypoxemia. Reasonable to monitor him overnight, cycle his enzymes and keep him on heparin overnight. Reasonable to start him on aspirin as well. Patient is overall very debilitated and not a good Child Welfare Specialist candidate unless he is having significant angina. If patient's troponin is trending down or does not go up very significantly he could be discharged home tomorrow. HPI Consult Data Date of Consult: 07/20/23 HPI Narrative Reason for Consultation: Elevated troponin HPI Narrative: NEERAJ GOINS, is a 77 M who presents to the ER as he was concerned that he was having a purple foot. In the ER his foot seemed okay but work-up revealed a high-sensitivity troponin of 2700. Patient has severe COPD and is on 10 to 12 L of oxygen continuously. When he uses the portable oxygen machine that he has it gives him only 6 L of oxygen and usually that is not enough for him. When he came to the emergency room using the portable oxygen machine he was apparently saturating at 75% according to the family. Yesterday his oxygen cannula was broken and his daughter had to clarke to his house to give him a new one. So it looks like he was without his usual oxygen for some time yesterday as well. He denies any chest pain and his shortness of breath is at baseline. Review of systems: All systems reviewed. All else is negative except as in HPI [facility] Medical History Alcohol abuse Benign hypertension CAD (coronary artery disease) COPD (chronic obstructive pulmonary disease) History of lung cancer HLD (hyperlipidemia) Hypertension Mass of left lung Pneumothorax after biopsy Pneumothorax of left lung after biopsy Small cell lung cancer Tobacco abuse Wernicke encephalopathy Home Medications nitroglycerin 0.4 mg sublingual tablet 0.4 mg sublingual PRN PRN chest pain 10/27/16 [History Last Taken Unknown] food supplemt, lactose-reduced 0.05 gram-1.5 kcal/mL oral liquid (Ensure Plus) See Rx Instructions PO .3 x a day #90 BOTTLES 09/28/21 [Rx Last Taken Unknown] furosemide 20 mg tablet 20 mg PO DAILY #90 tabs 09/20/22 [Rx Last Taken 07/20/23] prednisone 2.5 mg tablet 2.5 mg PO DAILY #90 tabs 09/20/22 [Rx Last Taken 07/20/23] albuterol sulfate 2.5 mg/3 mL (0.083 %) solution for nebulization 2.5 mg (3 mL) inhalation Q4H PRN shortness of breath or wheezing #180 mL 11/15/22 [Rx Last Taken Unknown] electric/hospital bed #1 ea 02/01/23 [Rx Last Taken Unknown] motorized wheelchair #1 ea 02/01/23 [Rx Last Taken Unknown] atenolol 50 mg tablet 50 mg PO DAILY #90 tabs 03/22/23 [Rx Last Taken 07/20/23] albuterol sulfate 90 mcg/actuation aerosol inhaler 2 puff inhalation Q4H PRN shortness of breath or wheezing #3 ea 06/13/23 [Rx Last Taken 07/20/23] budesonide-formoterol HFA 160 mcg-4.5 mcg/actuation aerosol inhaler (Symbicort) 2 puff inhalation BID #3 device 06/13/23 [Rx Last Taken 07/20/23] ipratropium 0.5 mg-albuterol 3 mg (2.5 mg base)/3 mL nebulization soln 3 ml inhalation Q4H #120 vials 06/13/23 [Rx Last Taken Unknown] Allergy/AdvReac Type Severity Reaction Status Date / Time No Known Allergies Allergy Verified 07/20/23 10:22 Family History Mother Emphysema lung Father Heart disease Surgical History H/O repair of rotator cuff History of heart artery stent Social History Smoking Status: Former smoker alcohol intake: former year quit: 2020 details: 6 yudith beer every weekend substance use type: does not use Physical Exam Const alert and oriented x3 HEENT normocephalic Eyes no scleral icterus Resp normal respiratory effort Cardio regular rate Extremity no pedal edema Psych mental status grossly normal Risk Stratification Risk Stratification Applicable: No Charges/Coding Visit Charges Inpatient E&M: 17571 Init Hosp L2 Objective Data Vital Signs: Vital Signs Temp Pulse Resp BP Pulse Ox O2 Del Method O2 Flow Rate 96.8 F L 77 15 94/65 99 Nasal Cannula 6 07/20/23 10:22 07/20/23 13:05 07/20/23 13:05 07/20/23 13:05 07/20/23 13:05 07/20/23 13:05 07/20/23 13:05 Oxygen Flow Rate (L/min) 6 Oxygen Delivery Method Nasal Cannula Weight: 97 lb 14.164 oz Body Mass Index (BMI) 18.5 Lab / Micro Data 07/20/23 10:30 07/20/23 10:30 Labs: Laboratory Results - last 24 hr 07/20/23 10:30: WBC 11.4 H, RBC 3.72 L, Hgb 11.5 L, Hct 37.2 L, MCV 100.0 H, MCH 30.9, MCHC 30.9 L, RDW Std Deviation 48.6 H, RDW Coeff of Jaime 13.2, Plt Count 309, MPV 10.5, Immature Gran % (Auto) 0.500, Neut % (Auto) 53.3, Lymph % (Auto) 33.0, [place] % (Auto) 11.4 H, Eos % (Auto) 1.1, Baso % (Auto) 0.7, Absolute Neuts (auto) 6.1, Absolute Lymphs (auto) 3.77, Nucleated RBC % 0, PT 13.2, INR 1.0, APTT 24.2, Sodium 140, Potassium 4.1, Chloride 99, Carbon Dioxide 31.0, Anion Gap 10, BUN 23 H, Creatinine 1.39 H, Estim Creat Clear Calc 27.51, Est GFR (MDRD) Af Amer 63, Est GFR (MDRD) Non-Af 52 L, BUN/Creatinine Ratio 16.5, Glucose 187 H, Calcium 9.3, Troponin I High Sens 2754 H* Cardiology Labs/Tests 07/20/23 10:30: WBC 11.4 H, RBC 3.72 L, Hgb 11.5 L, Hct 37.2 L, MCV 100.0 H, MCH 30.9, MCHC 30.9 L, Plt Count 309, MPV 10.5, Immature Gran % (Auto) 0.500, Neut % (Auto) 53.3, Lymph % (Auto) 33.0, [place] % (Auto) 11.4 H, Eos % (Auto) 1.1, Baso % (Auto) 0.7, Absolute Neuts (auto) 6.1, Nucleated RBC % 0, PT 13.2, INR 1.0, APTT 24.2, Sodium 140, Potassium 4.1, Chloride 99, Carbon Dioxide 31.0, Anion Gap 10, BUN 23 H, Creatinine 1.39 H, Est GFR (MDRD) Af Amer 63, Est GFR (MDRD) Non-Af 52 L, BUN/Creatinine Ratio 16.5, Glucose 187 H, Calcium 9.3 Rhythm: EKG: ECHO: Stress Test: Cardiac Cath: PCI: CT Surgery: Holter monitor: EPS: PPM: CXR: Chest CT Scan: Radiography Diagnostic Testing: Radiology Impression Chest X-Ray 07/20/23 11:06 IMPRESSION: Hyperinflation. No acute abnormality is seen. Electronically Signed: Geo Medel MD at 11:20 EDT ,
[2023-07-20 13:38] LABS: Troponin-I HS 2519 pg/mL (3.0-78.0)
--- NOTE | 2023-07-20 14:49 | ECHOD_ITS ---
Reason For Study: NSTEMI Procedure This was a 2D Doppler, Color Flow transthoracic echocardiogram. Exam performed portable in patient room. Left Ventricle Normal LV size. The estimated ejection fraction is 55 %. No evidence for diastolic dysfunction. No regional wall motion abnormalities noted. Right Ventricle Mildly dilated right ventricle. Normal systolic function. Atria Normal left atrium. Normal right atrium. No doppler evidence for ASD. Mitral Valve There is no mitral valve stenosis. Trivial mitral valve insufficiency. Tricuspid Valve There is no tricuspid stenosis. Trivial tricuspid valve insufficiency. Unable to estimate RV systolic pressure due to insufficient tricuspid regurgitant envelope. Aortic Valve Aortic sclerosis, no stenosis. Trisinus/trileaflet aortic valve. There is no aortic stenosis. No aortic valve insufficiency. Pulmonic Valve There is no pulmonic valvular stenosis. No pulmonic valve insufficiency. Great Vessels Normal aortic root. Pericardium/Pleural No pericardial effusion. MMode/2D Measurements & Calculations LVIDd: 4.0 cm IVSd: 0.99 cm Ao root diam: 2.5 cm LVIDs: 3.1 cm LVPWd: 1.0 cm RVDd: 3.3 cm FS: 22.9 % LAV(MOD-bp): 13.0 ml LA A4 area: 7.7 cm2 LA dimension(2D): 3.0 cm LAV(MOD-bp) Indexed: 9.4 ml/m2 LAV(MOD-sp2): 14.8 ml LAV(MOD-sp4): 12.1 ml TAPSE: 1.9 cm RA A4 area: 5.3 cm2 Time Measurements MV dec time: 0.20 sec Doppler Measurements & Calculations MV E max fito: 58.5 cm/sec Lat Peak E' Fito: 7.9 cm/sec Med Peak E' Fito: 6.7 cm/sec MV A max fito: 65.1 cm/sec E/E' lat: 7.5 E/E' med: 8.7 MV E/A: 0.90 MV dec slope: 289.7 cm/sec2 Ao V2 max: 135.0 cm/sec LV V1 max: 75.2 cm/sec Ao max P.3 mmHg LV V1 max P.3 mmHg Ao V2 mean: 97.6 cm/sec Ao mean P.2 mmHg Ao V2 VTI: 29.7 cm PA V2 max: 85.3 cm/sec TR max fito: 278.9 cm/sec TR max P.1 mmHg
--- NOTE | 2023-07-20 15:31 | WOUNDNOTE ---
wound photo: right lateral malleolus
[2023-07-20] MEDS: Clopidogrel Bisulfate 75 MG Tablet PO (16:18)
[2023-07-20] MEDS: predniSONE 5 MG Tablet 2.5 MG PO (16:18)
[2023-07-20 18:05] LABS: Troponin-I HS 3080 pg/mL (3.0-78.0)
[2023-07-20 19:22] LABS: Partial Thromboplast Time 35.1 Seconds (24.1-36.2)
[2023-07-20] MEDS: Atorvastatin Calcium 40 MG Tablet PO (20:12)
[2023-07-21] VITALS (13 sets, daily range): BP systolic 99–122; BP diastolic 61–83; PULSE 64–88; RESP 16–26; TEMP 35.9–36.8; O2SAT 97–99
[2023-07-21 02:14] LABS: Hematocrit 31.2 % (40-54); Hemoglobin 9.8 g/dL (13.0-16.5); Mean Corp Hgb Conc 31.4 g/dL (32-36); Mean Corpuscular Hgb 31.2 pg (27.0-32.0); Mean Corpuscular Volume 99.4 fL (80-94); Mean Platelet Vol. 10.9 fl (6.2-12.0); Platelet Count 224 K/mm3 (150-450); RBC Distribution Width CV 13.3 % (11.6-14.6); RBC Distribution Width SD 48.4 fl (35.1-43.9); Red Blood Count 3.14 M/mm3 (4.6-6.2); White Blood Count 9.1 K/mm3 (4.4-11.0)
[2023-07-21] MEDS: Ipratropium/Albuterol Sulfate 3 ML AMPUL.NEB INHALATION ×6 (02:32→23:11)
[2023-07-21 02:36] LABS: D-Dimer Quantitative (DVT/PE) 1.58 FEU/ug/m (0.27-0.49)
[2023-07-21 02:41] LABS: BNP,B-Type NATRIURETIC PEPTIDE 222.8 pg/mL (0-100)
[2023-07-21 02:46] LABS: AST(SGOT) 35 U/L (15-37); Alanine Aminotransfer ALT/SGPT 22 U/L (16-61); Albumin, Serum 3.1 g/dL (3.2-5.0); Alkaline Phosphatase 120 U/L (45-117); Anion Gap 2 (5-15); BUN 26 mg/dL (7-18); BUN/Creat Ratio 19.7 RATIO (10-20); Calcium,Total 8.6 mg/dL (8.5-10.1); Chloride 102 mmol/L (98-107); Cholesterol 170 mg/dL (200); Creatinine, Serum 1.32 mg/dL (0.70-1.30); EST Glomerular Filtration Rate 56 mL/min (>60); Est Glom Filt Rate - Afr Amer 67 mL/min (>60); Estimated Creatinine Clearance 27.01 ml/min; Globulin 3.2 g/dL (2.2-4.2); Glucose 103 mg/dL (74-106); High Density Lipoprotein 70 mg/dL; Potassium 4.3 mmol/L (3.5-5.1); Protein, Total 6.3 g/dL (6.4-8.2); Sodium Level 139 mmol/L (136-145); Thyroid Stim Hormone (TSH) 1.02 uIU/mL (0.358-3.74); Triglycerides 48 mg/dL; Very Low Density Lipoprotein 10 mg/dL (5-40)
[2023-07-21] MEDS: Budesonide Respules 0.5 MG/2 ML AMPUL.NEB. INHALATION ×2 (05:51→18:53)
--- NOTE | 2023-07-21 07:10 | PCM.PN.HOSP ---
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 who presented to the emergency department with shortness of breath Objective Data Objective Data Vital Signs: Vital Signs Temp Pulse Resp BP Pulse Ox O2 Del Method O2 Flow Rate 96.7 F L 88 20 H 122/83 H 99 Nasal Cannula 6 07/21/23 02:50 07/21/23 02:50 07/21/23 05:52 07/21/23 02:50 07/21/23 02:50 07/21/23 03:09 07/21/23 03:09 Oxygen Flow Rate (L/min) 6 Oxygen Delivery Method Nasal Cannula Weight: 41.4 kg Body Mass Index (BMI) 23.7 Intake & Output: Intake and Output for Last 24 Hours 07/19/23 07/20/23 07/21/23 23:59 23:59 23:59 Intake Total 302.53 / 302.53 286.75 / 286.75 Output Total 200 / 200 100 / 100 Balance 102.53 / 102.53 186.75 / 186.75 Lab / Micro Data 07/21/23 02:00 07/21/23 02:00 Labs: Laboratory Results - last 24 hr 07/20/23 10:30: WBC 11.4 H, RBC 3.72 L, Hgb 11.5 L, Hct 37.2 L, MCV 100.0 H, MCH 30.9, MCHC 30.9 L, RDW Std Deviation 48.6 H, RDW Coeff of Jaime 13.2, Plt Count 309, MPV 10.5, Immature Gran % (Auto) 0.500, Neut % (Auto) 53.3, Lymph % (Auto) 33.0, [place] % (Auto) 11.4 H, Eos % (Auto) 1.1, Baso % (Auto) 0.7, Absolute Neuts (auto) 6.1, Absolute Lymphs (auto) 3.77, Nucleated RBC % 0, PT 13.2, INR 1.0, APTT 24.2, Sodium 140, Potassium 4.1, Chloride 99, Carbon Dioxide 31.0, Anion Gap 10, BUN 23 H, Creatinine 1.39 H, Estim Creat Clear Calc 27.51, Est GFR (MDRD) Af Amer 63, Est GFR (MDRD) Non-Af 52 L, BUN/Creatinine Ratio 16.5, Glucose 187 H, Calcium 9.3, Troponin I High Sens 2754 H* 07/20/23 13:03: Troponin I High Sens 2519 H* 07/20/23 16:29: Troponin I High Sens 3080 H* 07/20/23 18:45: APTT 35.1 07/21/23 02:00: WBC 9.1, RBC 3.14 L, Hgb 9.8 L, Hct 31.2 L, MCV 99.4 H, MCH 31.2, MCHC 31.4 L, RDW Std Deviation 48.4 H, RDW Coeff of Jaime 13.3, Plt Count 224, MPV 10.9, APTT 60.0 H, D-Dimer Quant (PE/DVT) 1.58 H*, Sodium 139, Potassium 4.3, Chloride 102, Carbon Dioxide 35.0 H, Anion Gap 2 L, BUN 26 H, Creatinine 1.32 H, Estim Creat Clear Calc 27.01, Est GFR (MDRD) Af Amer 67, Est GFR (MDRD) Non-Af 56 L, BUN/Creatinine Ratio 19.7, Glucose 103, Calcium 8.6, Total Bilirubin 0.30, AST 35, ALT 22, Alkaline Phosphatase 120 H, B-Natriuretic Peptide 222.8 H, Total Protein 6.3 L, Albumin 3.1 L, Globulin 3.2, Albumin/Globulin Ratio 1.0, Triglycerides 48, Cholesterol 170, LDL Cholesterol 90, VLDL Cholesterol 10, HDL Cholesterol 70, TSH 1.02 Radiography Diagnostic Testing: Radiology Impression Chest X-Ray 07/20/23 11:06 IMPRESSION: Hyperinflation. No acute abnormality is seen. Electronically Signed: Geo Medel MD at 11:20 EDT , Physical Exam Narrative GENERAL: cooperative but frail looking HEENT: Atraumatic; normocephalic EYES; Anicteric, Normal Conjunctiva NECK; supple, normal thyroid, RESPIRATORY: Diminished to auscultation CARDIOVASCULAR: Regular S1 S2, GI: soft, normoactive bowel sounds, : No Renal angle tenderness; EXTREMITIES: No edema, no clubbing, MUSCULOSKELETAL: no muscle wasting NEURO: Awake; no lateralizing signs. 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 Acute hypoxia ? Multifactorial including advanced COPD. Admitted to regular nursing floor placed on supplemental oxygen with treatment of the underlying etiology including use of systemic steroid and antibiotic therapy as well as bronchodilator treatment 2. Elevated troponin ? Secondary to myocardial injury as a result of severe hypoxia. Patient was seen in consultation by cardiology notes and recommendations reviewed 3. 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 Status post chemotherapy. Patient was deemed not a candidate for radiation therapy. Currently being monitored with observation and surveillance for recurrence as outpatient by his oncologist Dr. Puentes 4. Elevated D-dimer ? Ordered VQ scan and bilateral venous duplex to rule out VTE. Patient empirically started on heparin 5. Chronic hypoxic respiratory failure ? Secondary to end-stage COPD patient is on 8 to 10 L oxygen continuously at home 6. Hypertension - Blood pressure controlled, home medications continued with dose adjustment as needed 7. DVT prophylaxis ? Patient is systemic anticoagulation with heparin Time spent in the patient's overall evaluation,decision-making process, review of diagnostic data, adjustment of management, discussion with other providers, nursing nursing and ancillary staff involved in patient's care documentation, 50 Minutes Charges/Coding Visit Charges Inpatient E&M: 39551 [facility] Hosp L3
[2023-07-21] MEDS: predniSONE 5 MG Tablet 2.5 MG PO (09:00)
[2023-07-21] MEDS: Thiamine Hydrochloride 100 MG Tablet PO (09:00)
[2023-07-21] MEDS: Aspirin E.C. 81 MG Tablet PO (09:00)
[2023-07-21] MEDS: Folic Acid 1 MG Tablet PO (09:00)
[2023-07-21 09:09] LABS: Troponin-I HS 1198 pg/mL (3.0-78.0)
--- NOTE | 2023-07-21 09:19 | VDLE_ITS ---
Reason For Study: Elevated D-Dimer RIGHT LEFT GSV is normal. GSV is normal. CFV is compressible, spontaneous, phasic, CFV is compressible, spontaneous, phasic, competent and demonstrates normal competent, and demonstrates normal augmentation. augmentation. FV is compressible, spontaneous, phasic, FV is compressible, spontaneous, phasic, competent and demonstrates normal competent and demonstrates normal augmentation. augmentation. POP V is compressible, spontaneous, phasic, POP V is compressible, spontaneous, phasic, competent and demonstrates normal competent and demonstrates normal augmentation. augmentation. T/P Trunk is compressible. T/P Trunk is compressible. PTV is compressible. PTV is compressible. RT PerV is compressible. LT PerV is compressible. Procedure This is a venous duplex using B-mode, color flow and spectral Doppler. Exam performed portable in patient room. The exam was diagnostic. A preliminary report was called and/or faxed to PCU french lecturer. VL/Venous Duplex US - Frederic Extrem Interpretation Summary No evidence for acute deep venous thrombosis bilateral lower extremities with p atent and compressible bilateral great saphenous veins. Ordering Physician: Liu Hay Referring Physician: Veronica May M.D. Performed By: Hayden Rodriguez RVT
[2023-07-21] MEDS: Furosemide 20 MG Tablet PO (09:53)
[2023-07-21] MEDS: 0.9% Saline Lock 10 ML Syringe IV (09:53)
[2023-07-21] MEDS: Atenolol 50 MG Tablet PO (09:53)
[2023-07-21] MEDS: Clopidogrel Bisulfate 75 MG Tablet PO (09:54)
[2023-07-21] MEDS: Flu Vacc QS2023-24(65YR UP)/PF 240 MCG/0.7 ML Syringe IM (10:01)
[2023-07-21 10:21] LABS: Partial Thromboplast Time 81.6 Seconds (24.1-36.2)
--- NOTE | 2023-07-21 12:25 | CASEMGMT ---
Addendum entered by Tejas Cyr 07/21/23 19:04: 12:50. RN SUSAN placed call to pt's dtr, Michell. Michell voiced much concern w/pt's current living conditions and concerns w/pt living alone, stating he is not able to take care of himself. She states pt stays in his bed for most of the day and only gets up to go to the bathroom. She states he is not eating right, has been losing weight, does not bath himself, and when he messes his pants he throws his dirty clothes in the corner. She states she thinks that the guys that come over to his home are just using him and are not really his friends. She states one of them is homeless and was sleeping on his couch and she had to make him leave since pt's landlord will not allow another tenant. She states pt was without oxygen yesterday for about 15 minutes b/c his oxygen tubing broke and he didn't think to get a new tubing out that was right at the edge of bed. She states, He probably wouldn't have been strong enough to even open the package. Michell reports that pt is still drinking and states, You can't believe anything that comes out of his mouth. She states she finds beer cans laying around his house and that his friends bring it to him. Michell states she knows her father prefers to be home, but she does not think it is safe for him. She states when he went to [facility] that he called her crying and begging her to take him home. She informed this RN SUSAN she thinks him eventually staying somewhere long-term would be best for him. She plans to come in to talk w/him later today about this. She was made aware CM or TWILA can f/u with them on Sunday to discuss further discharge planning. She would like a list of SNF's that are in-network w/his insurance, she would prefer pt have a private room, if able, and does not want pt to return to [facility], as she was not pleased w/his care there. Eva MATTSON, made aware. Michell states pulmonology discussed Palliative care for pt and she is not interested in a referral. Addendum: Pt states he also sees Dr Prah-oncology. Original Note: RN SUSAN AVIONIC TECHNICIAN CM to room to meet with patient for initial transition planning/care coordination assessment. SHELLEY DAVIS introduced self and role at [facility].? Pt voices understanding and consents to assessment at this time.? Pt resting in bed in no distress at this time.? Pt is A/O at this time and answers all questions appropriately, but he didn't remember some of the information and asked this SHELLEY DAVIS to call his Michell lara. Care providers, pharmacy, and demographics verified/updated at this time. PCP: Dr May Specialists: Dr Swanson-pulmonology Preferred Pharmacy: [facility] Insurance: [employer] [facility] Prescription Benefit:?Yes HCPOA:?Dtr, Michell, is HCPOA. LNOK: Dtr/POAMichell. Sister, Nadya. Living Arrangements: Pt lives alone in a 2-story home w/no steps to enter. FF[employer]. He states he has friends that come over in the morning and in the evening and they prepare his meals and feed his cats. Pt reports he is independent w/ADL's and that his dtr gets his groceries. Transportation: pt states his dtr takes him to app. DME: States has the following DME:?shower chair, hospital bed, nebulizer, medical alert, pulse ox, and O2 through [facility] @ 6 l/m continuously. ?Pt states no need for further DME at this time.? HHC/SNF: Went to [facility] in 2020 and has had HHC in the past. ETOH/smoking. Pt states he does not drink any longer and that he quit smoking a couple weeks ago. CM/Direction Home: Pt states he has a CM but he does not remember her name. Pt states he prefers to return home @ discharge, but he states if therapy recommends he go somewhere and if his daughter would like him to go to a SNF prior to returning home, then he would be would like to talk w/her about it. He asked SHELLEY DAVIS to call her to discuss this w/her also. PLAN: ?YAHAIRA. Liliam WARNER RN, CM
[2023-07-21 15:25] LABS: Partial Thromboplast Time 51.7 Seconds (24.1-36.2)
[2023-07-21] MEDS: Albuterol 2.5 MG/3 ML VIAL.NEB. INHALATION (17:32)
[2023-07-21] MEDS: Atorvastatin Calcium 40 MG Tablet PO (20:47)
[2023-07-21 21:30] LABS: Partial Thromboplast Time 56.9 Seconds (24.1-36.2)
[2023-07-22] VITALS (12 sets, daily range): BP systolic 95–130; BP diastolic 62–85; PULSE 69–88; RESP 17–24; TEMP 36.4–37; O2SAT 96–100
[2023-07-22] MEDS: HEPARIN/D5w 25,000 UNITS 25,000 UNITS/250 ML IV.SOLN. 7.5 UNITS CONT INF (01:24)
[2023-07-22 03:07] LABS: Partial Thromboplast Time 72.5 Seconds (24.1-36.2)
[2023-07-22] MEDS: Ipratropium/Albuterol Sulfate 3 ML AMPUL.NEB INHALATION ×6 (03:37→23:09)
[2023-07-22] MEDS: Budesonide Respules 0.5 MG/2 ML AMPUL.NEB. INHALATION ×2 (07:06→19:30)
--- NOTE | 2023-07-22 07:29 | PCM.PN.HOSP ---
Reason for Visit Reason for Visit: Diagnoses Non-ST elevation (NSTEMI) myocardial infarction (07/20/23) Subjective Subjective Patient seen overall clinical condition continues to improve. Patient did complain of some lower extremity paresthesias, trial of gabapentin initiated patient reports improvement in symptoms. Patient scheduled to undergo bilateral lower extremity venous duplex as well as VQ scan on 07/23/2023 Objective Data Objective Data Vital Signs: Vital Signs Temp Pulse Resp BP Pulse Ox O2 Del Method O2 Flow Rate 98.2 F 69 20 H 130/85 H 97 High Flow 5 07/22/23 03:01 07/22/23 03:38 07/22/23 03:38 07/22/23 03:01 07/22/23 03:01 07/22/23 03:01 07/22/23 03:01 Oxygen Flow Rate (L/min) 5 Oxygen Delivery Method High Flow Weight: 41.4 kg Body Mass Index (BMI) 23.7 Intake & Output: Intake and Output for Last 24 Hours 07/20/23 07/21/23 07/22/23 23:59 23:59 22:59 Intake Total 302.53 / 302.53 2212.25 / 2212.25 96.84 / 96.84 Output Total 200 / 200 1250 / 1250 300 / 300 Balance 102.53 / 102.53 962.25 / 962.25 -203.16 / -203.16 Lab / Micro Data 07/21/23 02:00 07/21/23 02:00 Labs: Laboratory Results - last 24 hr 07/21/23 07:05: Troponin I High Sens 1198 H* 07/21/23 08:18: APTT 81.6 H 07/21/23 15:04: APTT 51.7 H 07/21/23 21:13: APTT 56.9 H 07/22/23 02:27: APTT 72.5 H Radiography Diagnostic Testing: Radiology Impression Echocardiogram 07/20/23 14:49 Interpretation Summary The estimated ejection fraction is 55 %. No evidence for diastolic dysfunction. Mildly dilated right ventricle. Trivial mitral valve insufficiency. Ordering Physician: Liu Joseph Referring Physician: Veronica May Performed By: Scarlett Hand RDCS, RVT Physical Exam Narrative GENERAL: cooperative but frail looking HEENT: Atraumatic; normocephalic EYES; Anicteric, Normal Conjunctiva NECK; supple, normal thyroid, RESPIRATORY: Diminished to auscultation CARDIOVASCULAR: Regular S1 S2, GI: soft, normoactive bowel sounds, : No Renal angle tenderness; EXTREMITIES: No edema, no clubbing, MUSCULOSKELETAL: no muscle wasting NEURO: Awake; no lateralizing signs. 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 Acute hypoxia ? Multifactorial including advanced COPD. Admitted to regular nursing floor placed on supplemental oxygen with treatment of the underlying etiology including use of systemic steroid and antibiotic therapy as well as bronchodilator treatment ? 07/22/2023 patient continues to improve clinically 2. Elevated troponin ? Secondary to myocardial injury as a result of severe hypoxia. Patient was seen in consultation by cardiology notes and recommendations reviewed 3. 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 Status post chemotherapy. Patient was deemed not a candidate for radiation therapy. Currently being monitored with observation and surveillance for recurrence as outpatient by his oncologist Dr. Puentes 4. Elevated D-dimer ? Ordered VQ scan and bilateral venous duplex to rule out VTE. Patient empirically started on heparin ? 07/22/2023 VQ scan and bilateral venous duplex scheduled to be performed on 07/23/2020 5. Chronic hypoxic respiratory failure ? Secondary to end-stage COPD patient is on 8 to 10 L oxygen continuously at home 6. Hypertension - Blood pressure controlled, home medications continued with dose adjustment as needed 7. DVT prophylaxis ? Patient is systemic anticoagulation with heparin Time spent in the patient's overall evaluation,decision-making process, review of diagnostic data, adjustment of management, discussion with other providers, nursing nursing and ancillary staff involved in patient's care documentation, 35 Minutes Advance planning; did discuss with the patient and family regarding advanced directives as well as CODE STATUS. Did explain the various scenarios involved ( FULL CODE, DNR CCA, DNR CCA with no intubation, and DNR CC and what each meant) patient elected to remain full code order was placed. Time spent on discussion 18 minutes. Charges/Coding Visit Charges Inpatient E&M: 44197 Subs Hosp L2 Procedures Hospitalists Procedures: 74777 Advncd Care Plan 30 Min
[2023-07-22] MEDS: Albuterol 2.5 MG/3 ML VIAL.NEB. INHALATION (08:55)
[2023-07-22] MEDS: Thiamine Hydrochloride 100 MG Tablet PO (09:00)
[2023-07-22] MEDS: Folic Acid 1 MG Tablet PO (09:00)
[2023-07-22] MEDS: Gabapentin 100 MG Capsule PO ×3 (09:00→16:00)
[2023-07-22] MEDS: Aspirin E.C. 81 MG Tablet PO (09:00)
[2023-07-22] MEDS: predniSONE 5 MG Tablet 2.5 MG PO (09:00)
[2023-07-22 09:19] LABS: Partial Thromboplast Time 56.8 Seconds (24.1-36.2)
[2023-07-22 09:23] LABS: Anion Gap 5 (5-15); BUN 26 mg/dL (7-18); BUN/Creat Ratio 23.9 RATIO (10-20); Chloride 98 mmol/L (98-107); Creatinine, Serum 1.09 mg/dL (0.70-1.30); EST Glomerular Filtration Rate 69 mL/min (>60); Est Glom Filt Rate - Afr Amer 84 mL/min (>60); Estimated Creatinine Clearance 32.71 ml/min; Glucose 131 mg/dL (74-106); Magnesium 2.1 mg/dL (1.6-2.6); Potassium 3.9 mmol/L (3.5-5.1); Sodium Level 139 mmol/L (136-145)
[2023-07-22 09:39] LABS: Absolute Lymphocyte Count 1.05 X10^3/uL (0.83-4.51); Absolute Neutrophil Count 4.7 X10^3/uL (2.0-7.7); Basophil# 0.05 X10^3/uL; Basophil% 0.7 % (0-1); Eosinophil# 0.11 X10^3/uL; Eosinophils% 1.6 % (0-5); Hemoglobin 10.1 g/dL (13.0-16.5); Lymphocyte # 1.05 X10^3/ul (0.83-4.51); Lymphocyte % 15.6 % (19-41); Mean Corp Hgb Conc 30.6 g/dL (32-36); Mean Corpuscular Hgb 30.3 pg (27.0-32.0); Mean Corpuscular Volume 99.1 fL (80-94); Mean Platelet Vol. 10.8 fl (6.2-12.0); Monocyte# 0.84 X10^3/uL; Monocyte% 12.4 % (0-10); NRBC Flagged by Analyzer 0 % (0-5); Neutrophil # 4.67 X10^3/uL (2.7-7.7); Neutrophil % 69.3 % (47-70); Platelet Count 233 K/mm3 (150-450); RBC Distribution Width CV 13.1 % (11.6-14.6); RBC Distribution Width SD 47.1 fl (35.1-43.9); Red Blood Count 3.33 M/mm3 (4.6-6.2); White Blood Count 6.8 K/mm3 (4.4-11.0)
[2023-07-22] MEDS: 0.9% Saline Lock 10 ML Syringe IV (11:00)
[2023-07-22] MEDS: Atenolol 50 MG Tablet PO (11:00)
[2023-07-22] MEDS: Clopidogrel Bisulfate 75 MG Tablet PO (11:00)
[2023-07-22] MEDS: Furosemide 20 MG Tablet PO (11:00)
[2023-07-22 15:17] LABS: Partial Thromboplast Time 49.2 Seconds (24.1-36.2)
[2023-07-22] MEDS: Atorvastatin Calcium 40 MG Tablet PO (19:54)
[2023-07-23] VITALS (10 sets, daily range): BP systolic 97–101; BP diastolic 55–74; PULSE 60–85; RESP 14–24; TEMP 36.1–36.7; O2SAT 96–100
[2023-07-23] MEDS: Ipratropium/Albuterol Sulfate 3 ML AMPUL.NEB INHALATION ×6 (03:42→23:30)
[2023-07-23 04:20] LABS: Absolute Lymphocyte Count 1.25 X10^3/uL (0.83-4.51); Absolute Neutrophil Count 3.3 X10^3/uL (2.0-7.7); Basophil# 0.05 X10^3/uL; Basophil% 0.9 % (0-1); Eosinophil# 0.09 X10^3/uL; Eosinophils% 1.6 % (0-5); Hematocrit 31.2 % (40-54); Hemoglobin 9.9 g/dL (13.0-16.5); Lymphocyte # 1.25 X10^3/ul (0.83-4.51); Lymphocyte % 22.4 % (19-41); Mean Corp Hgb Conc 31.7 g/dL (32-36); Mean Corpuscular Hgb 31.3 pg (27.0-32.0); Mean Corpuscular Volume 98.7 fL (80-94); Mean Platelet Vol. 9.9 fl (6.2-12.0); Monocyte# 0.91 X10^3/uL; Monocyte% 16.3 % (0-10); NRBC Flagged by Analyzer 0 % (0-5); Neutrophil # 3.26 X10^3/uL (2.7-7.7); Neutrophil % 58.3 % (47-70); Platelet Count 213 K/mm3 (150-450); RBC Distribution Width CV 12.9 % (11.6-14.6); Red Blood Count 3.16 M/mm3 (4.6-6.2); White Blood Count 5.6 K/mm3 (4.4-11.0)
[2023-07-23 04:31] LABS: Partial Thromboplast Time 72.2 Seconds (24.1-36.2)
[2023-07-23 04:43] LABS: Anion Gap 3 (5-15); BUN 42 mg/dL (7-18); BUN/Creat Ratio 30.4 RATIO (10-20); Calcium,Total 8.8 mg/dL (8.5-10.1); Chloride 99 mmol/L (98-107); Creatinine, Serum 1.38 mg/dL (0.70-1.30); EST Glomerular Filtration Rate 53 mL/min (>60); Est Glom Filt Rate - Afr Amer 64 mL/min (>60); Estimated Creatinine Clearance 25.83 ml/min; Glucose 93 mg/dL (74-106); Magnesium 2.1 mg/dL (1.6-2.6); Potassium 4.7 mmol/L (3.5-5.1); Sodium Level 136 mmol/L (136-145)
[2023-07-23] MEDS: Budesonide Respules 0.5 MG/2 ML AMPUL.NEB. INHALATION ×2 (06:58→19:26)
[2023-07-23] MEDS: Atenolol 50 MG Tablet PO (09:19)
[2023-07-23] MEDS: Thiamine Hydrochloride 100 MG Tablet PO (09:20)
[2023-07-23] MEDS: predniSONE 5 MG Tablet 2.5 MG PO (09:20)
[2023-07-23] MEDS: Aspirin E.C. 81 MG Tablet PO (09:20)
[2023-07-23] MEDS: Clopidogrel Bisulfate 75 MG Tablet PO (09:20)
[2023-07-23] MEDS: Folic Acid 1 MG Tablet PO (09:21)
[2023-07-23] MEDS: Furosemide 20 MG Tablet PO (09:22)
--- NOTE | 2023-07-23 09:23 | PCM.PN.HOSP ---
Reason for Visit Reason for Visit: Diagnoses Non-ST elevation (NSTEMI) myocardial infarction (07/20/23) Subjective Subjective Patient reports he is not quite back to his baseline but feeling better from a respiratory standpoint today. Feet have been somewhat aching but denies any other focal complaints Objective Data Objective Data Vital Signs: Vital Signs Temp Pulse Resp BP Pulse Ox O2 Del Method O2 Flow Rate 97.0 F L 78 20 H 98/61 97 Nasal Cannula 5 07/23/23 03:00 07/23/23 07:02 07/23/23 07:02 07/23/23 03:00 07/23/23 07:02 07/23/23 07:02 07/23/23 07:02 Oxygen Flow Rate (L/min) 5 Oxygen Delivery Method Nasal Cannula Weight: 41.4 kg Body Mass Index (BMI) 23.7 Intake & Output: Intake and Output for Last 24 Hours 07/22/23 07/22/23 07/23/23 00:59 23:59 23:59 Intake Total 96.88 / 96.88 Output Total 600 / 600 Balance -503.12 / -503.12 Lab / Micro Data 07/23/23 04:08 07/23/23 04:08 Labs: Laboratory Results - last 24 hr 07/22/23 09:01: WBC 6.8, RBC 3.33 L, Hgb 10.1 L, Hct 33.0 L, MCV 99.1 H, MCH 30.3, MCHC 30.6 L, RDW Std Deviation 47.1 H, RDW Coeff of Jaime 13.1, Plt Count 233, MPV 10.8, Immature Gran % (Auto) 0.400, Neut % (Auto) 69.3, Lymph % (Auto) 15.6 L, Warrick % (Auto) 12.4 H, Eos % (Auto) 1.6, Baso % (Auto) 0.7, Absolute Neuts (auto) 4.7, Absolute Lymphs (auto) 1.05, Nucleated RBC % 0, Sodium 139, Potassium 3.9, Chloride 98, Carbon Dioxide 36.0 H, Anion Gap 5, BUN 26 H, Creatinine 1.09, Estim Creat Clear Calc 32.71, Est GFR (MDRD) Af Amer 84, Est GFR (MDRD) Non-Af 69, BUN/Creatinine Ratio 23.9 H, Glucose 131 H, Calcium 9.0, Magnesium 2.1 07/22/23 14:53: APTT 49.2 H 07/22/23 22:06: APTT 60.0 H 07/23/23 04:08: WBC 5.6, RBC 3.16 L, Hgb 9.9 L, Hct 31.2 L, MCV 98.7 H, MCH 31.3, MCHC 31.7 L, RDW Std Deviation 47.0 H, RDW Coeff of Jaime 12.9, Plt Count 213, MPV 9.9, Immature Gran % (Auto) 0.500, Neut % (Auto) 58.3, Lymph % (Auto) 22.4, Warrick % (Auto) 16.3 H, Eos % (Auto) 1.6, Baso % (Auto) 0.9, Absolute Neuts (auto) 3.3, Absolute Lymphs (auto) 1.25, Nucleated RBC % 0, APTT 72.2 H, Sodium 136, Potassium 4.7, Chloride 99, Carbon Dioxide 34.0 H, Anion Gap 3 L, BUN 42 H, Creatinine 1.38 H, Estim Creat Clear Calc 25.83, Est GFR (MDRD) Af Amer 64, Est GFR (MDRD) Non-Af 53 L, BUN/Creatinine Ratio 30.4 H, Glucose 93, Calcium 8.8, Magnesium 2.1 Physical Exam Narrative General: Alert, oriented, no apparent distress HEENT: Atraumatic, normocephalic Eyes: Anicteric, normal conjunctiva, extraocular movements grossly intact Neck: Supple Respiratory: Somewhat diminished at the bases, no overt respiratory distress Cardiovascular: Regular rate GI: Soft, nontender, nondistended Extremities: No edema Musculoskeletal: Moving all extremities Neuro: No overt focal neurological deficits Skin: No rashes appreciated Psych: Cooperative Assessment & Plan Assessment/Plan (1) NSTEMI, initial episode of care: PLAN: Plan Patient is a 77-year-old gentleman with 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 Acute hypoxia ? Multifactorial including advanced COPD. Admitted to regular nursing floor placed on supplemental oxygen with treatment of the underlying etiology including use of systemic steroid and antibiotic therapy as well as bronchodilator treatment ? 07/22/2023 patient continues to improve clinically -07/23: Patient 97% on 5 L, VQ scan and duplex negative so heparin drip DC'd does wear home O2 and wears 6 L continuously so is at baseline at present. Patient on his regular 2.5 mg of prednisone daily and nebs as well as budesonide. Creatinine and BUN went up slightly, holding Lasix 2. Elevated troponin ? Secondary to myocardial injury as a result of severe hypoxia. Patient was seen in consultation by cardiology notes and recommendations reviewed -07/23: No further work-up at this time 3. 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 Status post chemotherapy. Patient was deemed not a candidate for radiation therapy. Currently being monitored with observation and surveillance for recurrence as outpatient by his oncologist Dr. Puentes -07/23: Outpatient follow-up with Dr. Puentes 4. Elevated D-dimer ? Ordered VQ scan and bilateral venous duplex to rule out VTE. Patient empirically started on heparin ? 07/22/2023 VQ scan and bilateral venous duplex scheduled to be performed on 07/23/2020 -07/23: Duplex and VQ scan negative, heparin drip discontinued 5. Chronic hypoxic respiratory failure ? Secondary to end-stage COPD patient is on 8 to 10 L oxygen continuously at home -07/23: Continue O2 6. Hypertension - Blood pressure controlled, home medications continued with dose adjustment as needed 7. DVT prophylaxis ? Subcu heparin Time spent in the patient's overall evaluation,decision-making process, review of diagnostic data, adjustment of management, discussion with other providers, nursing nursing and ancillary staff involved in patient's care documentation, 35 Minutes Charges/Coding Visit Charges Inpatient E&M: 31772 [facility] L2
[2023-07-23] MEDS: Gabapentin 100 MG Capsule PO ×3 (09:24→17:17)
--- NOTE | 2023-07-23 10:20 | CASEMGMT ---
[facility]urance [facility] is as follows:. [facility], [place], [facility], [facility], [facility], [facility], [facility]), [facility], [facility], [facility], and . Eli Trujillo, Discharge Planning Asst.
--- NOTE | 2023-07-23 10:30 | NM_ITS ---
CLINICAL: 77-year-old male with history of shortness of breath, dyspnea. VENTILATION-PERFUSION LUNG SCINTIGRAPHY COMPARISON: Plain film chest radiograph report 07/20/2023 FINDINGS: The patient was administered 50.0 mCi 99m Tc DTPA aerosol. The aerosol ventilation study demonstrates heterogeneous ventilation in the bilateral lung jones without corresponding radiographic changes visualized on review of plain film chest x-ray dated 07/20/2023. Central clumping of the aerosol is identified in the bilateral hemithorax. Following the intravenous administration of 5.8 mCi of 99m Tc MAA, the pulmonary perfusion study reveals matching non-uniform perfusion in the right and left lungs correlating with the previously defined ventilation pattern. No moderate subsegmental or large segmental ventilation-perfusion mismatches are noted. There are regions of retained normal perfusion visualized. NM/Lung Scan Vent/Perf IMPRESSION: 1. VERY LOW PROBABILITY FOR PULMONARY EMBOLUS (<10%) 99m Tc DTPA aerosol ventilation / 99m Tc MAA pulmonary perfusion imaging examination, according to PIOPED II interpretive criteria with regard given to the presence of > 2 ventilation-perfusion matches without corresponding radiographic changes. (Sotsman et al, Radiology 246: 941, 2008 Sotsman et al, J Nucl Med 49: 1741, 2008). 2. Central clumping of the aerosol may be secondary to obstructive airway mechanics and or clinical tachypnea. Electronically Signed: Glenn Ridley DO at 10:32 EST ,
--- NOTE | 2023-07-23 10:46 | CASEMGMT ---
Addendum entered by Eva Mccall 07/23/23 11:35: Social Work Please note: SW did give daughter a list of senior care facilities from [facility] of facilities in pt's preferred geographic area, in pt's insurance network, complete with quality and resource use data. EDUARDO Lorenzo Original Note: Social Work SW spoke w/daughter in room in regard to discharge plan. Pt was awake but then fell asleep while SW in room. Daughter would like pt to go to [facility] if possible at discharge, would like him to have a private room. Eli d/jacquelyn Powder Coat Painter will follow up w/Jeremi. EDUARDO Lorenzo
[2023-07-23 11:41] LABS: Partial Thromboplast Time 51.4 Seconds (24.1-36.2)
--- NOTE | 2023-07-23 11:52 | CASEMGMT ---
Discharge Planning Referral sent to [facility] via [facility]. Eli Trujillo, Discharge Planning Asst.
[2023-07-23] MEDS: HEPARIN/D5w 25,000 UNITS 25,000 UNITS/250 ML IV.SOLN. 7.5 UNITS CONT INF (12:04)
--- NOTE | 2023-07-23 13:59 | CHAPLAIN ---
Type of Pastoral Visit ___ Initial Visit ___ Follow-up Visit ___ On-call Visit ___ General Patient Visit ___ Spiritual Assessment ___ Family Conference ___ Bereavement ___ Rapid Response ___ Code Blue ___ Other (describe below) Pastoral Care Referral From ___ Patient ___ Family ___ Nurse ___ Physician ___ Police Officer Booking ___ Coffee Sampler ___ Other (describe below) Sacrament/Intervention ___ Active listening ___ Anointing ___ Sabianism ___ Bereavement ___ Communion ___ Gracie exploration ___ ___ Life review ___ Prayer ___ Reconciliation ___ Sacrament of Sick ___ Supportive presence ___ Wedding ___ Other (describe below) Pastoral Comments patient is sleeping
--- NOTE | 2023-07-23 14:33 | WOUNDNOTE ---
wound photo: right lateral malleolus
--- NOTE | 2023-07-23 14:40 | CASEMGMT ---
Discharge Planning Patient has been accepted by [facility]. Asked for precert to be submitted. Eli Trujillo, Discharge Planning Asst.
[2023-07-23] MEDS: Heparin Injection (Vial) 5,000 UNIT/ML VIAL 5000 UNIT SC (20:49)
[2023-07-23] MEDS: Atorvastatin Calcium 40 MG Tablet PO (20:50)
[2023-07-24] VITALS (8 sets, daily range): BP systolic 102–114; BP diastolic 62–90; PULSE 72–80; RESP 14–24; TEMP 36.5–36.6; O2SAT 94–100
[2023-07-24] MEDS: Ipratropium/Albuterol Sulfate 3 ML AMPUL.NEB INHALATION ×3 (03:20→10:27)
[2023-07-24 06:06] LABS: Absolute Lymphocyte Count 1.03 X10^3/uL (0.83-4.51); Absolute Neutrophil Count 3.1 X10^3/uL (2.0-7.7); Basophil# 0.04 X10^3/uL; Basophil% 0.8 % (0-1); Eosinophil# 0.09 X10^3/uL; Eosinophils% 1.7 % (0-5); Hematocrit 29.6 % (40-54); Hemoglobin 9.4 g/dL (13.0-16.5); Lymphocyte # 1.03 X10^3/ul (0.83-4.51); Lymphocyte % 19.8 % (19-41); Mean Corp Hgb Conc 31.8 g/dL (32-36); Mean Corpuscular Hgb 31.2 pg (27.0-32.0); Mean Corpuscular Volume 98.3 fL (80-94); Mean Platelet Vol. 10.4 fl (6.2-12.0); Monocyte# 0.89 X10^3/uL; Monocyte% 17.1 % (0-10); NRBC Flagged by Analyzer 0 % (0-5); Neutrophil # 3.12 X10^3/uL (2.7-7.7); Platelet Count 217 K/mm3 (150-450); RBC Distribution Width SD 46.2 fl (35.1-43.9); Red Blood Count 3.01 M/mm3 (4.6-6.2); White Blood Count 5.2 K/mm3 (4.4-11.0)
[2023-07-24 06:41] LABS: Anion Gap 5 (5-15); BUN 44 mg/dL (7-18); BUN/Creat Ratio 34.6 RATIO (10-20); Calcium,Total 8.6 mg/dL (8.5-10.1); Chloride 98 mmol/L (98-107); Creatinine, Serum 1.27 mg/dL (0.70-1.30); EST Glomerular Filtration Rate 58 mL/min (>60); Est Glom Filt Rate - Afr Amer 70 mL/min (>60); Estimated Creatinine Clearance 28.07 ml/min; Glucose 88 mg/dL (74-106); Potassium 4.7 mmol/L (3.5-5.1); Sodium Level 137 mmol/L (136-145)
[2023-07-24] MEDS: Budesonide Respules 0.5 MG/2 ML AMPUL.NEB. INHALATION (07:15)
[2023-07-24] MEDS: Folic Acid 1 MG Tablet PO (08:08)
[2023-07-24] MEDS: Thiamine Hydrochloride 100 MG Tablet PO (08:09)
[2023-07-24] MEDS: Clopidogrel Bisulfate 75 MG Tablet PO (08:10)
[2023-07-24] MEDS: Aspirin E.C. 81 MG Tablet PO (08:10)
[2023-07-24] MEDS: predniSONE 5 MG Tablet 2.5 MG PO (08:10)
[2023-07-24] MEDS: Atenolol 50 MG Tablet PO (08:10)
[2023-07-24] MEDS: Heparin Injection (Vial) 5,000 UNIT/ML VIAL 5000 UNIT SC (08:10)
[2023-07-24] MEDS: Gabapentin 100 MG Capsule PO ×2 (08:18→11:52)
--- NOTE | 2023-07-24 09:28 | CASEMGMT ---
[employer] [facility] notified abelino Benitez community development planner that pt was approved for [facility]. SW let physician know, it is likely pt will be discharged today to [facility], skilled level of care. EDUARDO Lorenzo
--- NOTE | 2023-07-24 11:34 | TREXTCAR_ITS ---
Diet Diet Order/Speech Therapy: 07/23/23 16:11 Diet: Regular - General Food consistency:: Regular Liquid Consistency:: Regular/Thin Type of Dietary Supplement:: Bette Magic Cup w/ lunch Diet Comments: chocolate ensure compact BID w/ breakfast and dinner meals Routine Orders/Code Status Suppository Type: Dulcolax 10mg Suppository Frequency: Daily PRN O2 Liters per Minute: 5-6 O2 Frequency: Continuous Keep PO Greater than or Equal to (%): 92 Code Status: Full Code Wound(s) RIGHT ANKLE: Wound Type: Stasis Ulcer right lateral malleolus: Wound Type: scabbed over wound Dressing Change: Mepilex bilat knee: Wound Type: Scab Therapies Physical Therapy: Eval and Treat Occupational Therapy: Eval and Treat Problem/Diagnosis (1) COPD (chronic obstructive pulmonary disease): Status: Chronic Code(s): J44.9 - Chronic obstructive pulmonary disease, unspecified Plan 1. Acute hypoxia 2/2 home O2 interruption and bronchospasm 2. Elevated troponin- 2/2 demand from hypoxia 3. 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 Elevated D-dimer- no dvt or PE 5. Chronic hypoxic respiratory failure 6. Hypertension NEERAJ GOINS, is a 77 M with a past medical history of essential hypertension, hyperlipidemia, remote history of coronary artery disease with previous DC approximately 25 years ago with stent placement, history of alcohol abuse; with subsequent Wernicke's encephalopathy with patient now down to a sixpack over the weekends, COPD with ongoing tobacco abuse, chronic hypoxic respiratory failure requiring 8 to 10 L of oxygen continuously, history of small cell lung cancer with pneumothorax after biopsy of the Left lung and severe peripheral vascular disease primarily on the right foot with a 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 In the ED he was found to have a troponin of 2754 and with his O2 improving it decreased to 2519. He was started on medical management but it was suspected to be type II NSTEMI due to hypoxia from disruption of supplemental oxygen. Cardiology evaluated and felt of troponin was downtrending he could be discharged home as he was not a good Strategy Specialist candidate and it is likely elevated due to his hypoxemia. Echocardiogram additionally had no wall motion abnormalities. Patient did have elevated D-dimer and was continued on heparin drip and VQ scan and lower extremity duplex obtained which were negative so this was transitioned to DVT prophylaxis. Patient back on baseline O2 and deemed stable for transfer to skilled facility for rehab. Allergies/Procedures Done in Hospital Allergies No Known Allergies Allergy (Verified 07/20/23 10:22) Procedures: - (v/q scan, LE duplex) Type of Care/Length of Stay Estimated LOS: Convalescent Care Less Than 30 days Type of Care Needed: Skilled Rehab Potential: Fair Prognosis: Fair Additional Orders/Day of Discharge Day of Discharge: 07/24/23 Dietary and Speech Recommendations Dietitian Recommendations/Changes: Given signs/symptoms of malnutrition, will liberalize diet to regular. Will add chocolate ensure compact BID w/ breakfast and dinner meals. Will add chocolate magic cup w/ lunch. Additional ONS dependent on PO at meals. Discharge Plan Admission Admit Date/Time: 07/20/23 13:03 Primary Reason for Your Visit: Acute on chronic hypoxia Attending Provider: Albina Pedersen Primary Care Provider: Veronica May Consulting Providers: Bhupinder Rodriguez; Liu Joseph; Albina Pedersen; Liu Hay Instructions Patient Instructions: ED Fall Prevention Additional Instructions / Restrictions: DISCHARGE INSTRUCTIONS PLEASE READ *Please take this with you to your next doctors appointment* -Please continue nebs, aspirin, and atorvastatin -Please follow-up with your bean sorter upon discharge -Please call your primary care provider's office upon discharge to schedule a hospital follow up within 1 week. -For any concerning signs or symptoms please call 911 or proceed to the nearest emergency department Discharge Orders/Prescriptions Prescriptions: New aspirin 81 mg Tablet,Delayed Release (Dr/Ec) 81 mg PO BREAKFAST Qty: 0 0RF atorvastatin 40 mg Tablet 40 mg PO QHS 30 Days Qty: 0 0RF Continued albuterol sulfate 2.5 mg /3 mL (0.083 %) solution for nebulization 2.5 mg INHALATION Q4H PRN (Reason: shortness of breath or wheezing) Qty: 180 6RF Symbicort 160-4.5 mcg/actuation HFA aerosol inhaler 2 puff INHALATION BID Qty: 3 3RF ipratropium-albuterol 0.5 mg-3 mg(2.5 mg base)/3 mL solution for nebulization 3 ml INHALATION Q4H Qty: 120 6RF albuterol sulfate 90 mcg/actuation HFA aerosol inhaler 2 puff INHALATION Q4H PRN (Reason: shortness of breath or wheezing) Qty: 3 3RF Rx Instructions: administer with spacer nitroglycerin 0.4 MG tablet, sublingual 0.4 mg sublingual PRN PRN (Reason: chest pain) Patient Comments: chest pain/angina Ensure Plus 0.05-1.5 gram-kcal/mL liquid See Rx Instructions PO .3 x a day Qty: 90 3RF Rx Instructions: 3 cans daily PO .3 x a day; Ensure supplements , drink on 3 x a day . okay to substitute for similar brand. prednisone 2.5 mg tablet 2.5 mg PO DAILY Qty: 90 3RF (DME) motorized wheelchair See Rx Instructions .Route .MEDSUPPLY Qty: 1 0RF Rx Instructions: As directed (DME) electric/hospital bed See Rx Instructions .Route .MEDSUPPLY Qty: 1 0RF Rx Instructions: As directed atenolol 50 mg tablet 50 mg PO DAILY Qty: 90 3RF Held furosemide 20 mg tablet 20 mg PO DAILY Qty: 90 3RF Hold Instructions: Resume on 07/25/23. Referrals / Follow Up: Veronica May MD [Primary Care Provider] - Within 1 Week Disposition Disposition (needs filled in before D/C Order can be placed): Senior Care Facility (1) COPD (chronic obstructive pulmonary disease) Qualifiers: COPD type: unspecified COPD Qualified Code(s): J44.9 - Chronic obstructive pulmonary disease, unspecified
--- NOTE | 2023-07-24 11:39 | DS.PCM_ITS ---
Providers Date of Admission: 07/20/23 Date of Discharge: 07/24/23 Primary Care Physician: Dr. Veronica May MD Consultations 07/20/23 14:49 Consult: Onc/Wound/sparker and patcher Routine Comment: Reason for Consult:: Right Lateral Malleolar Wound Comments:: Chronic Wound that is not acutely infected. 07/20/23 19:44 Consult: Cardiology Routine Consulting Provider: Bhupinder Rodriguez Reason for Consult: NSTEMI EMERGENT Consult: No MD Notified: Yes Date Notified: 07/20/23 Time Notified: 19:44 Method of Notification: ED Physician Initiated Reason For Visit: elevated troponin Diagnosis Discharge Diagnosis (1) COPD (chronic obstructive pulmonary disease): Status: Chronic Code(s): J44.9 - Chronic obstructive pulmonary disease, unspecified Qualifiers: COPD type: unspecified COPD Qualified Code(s): J44.9 - Chronic obstructive pulmonary disease, unspecified Plan 1. Acute hypoxia 2/2 home O2 interruption and bronchospasm 2. Elevated troponin- 2/2 demand from hypoxia 3. 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 Elevated D-dimer- no dvt or PE 5. Chronic hypoxic respiratory failure 6. Hypertension Medications at Discharge Home Medications nitroglycerin 0.4 mg sublingual tablet 0.4 mg sublingual PRN PRN chest pain 10/27/16 food supplemt, lactose-reduced 0.05 gram-1.5 kcal/mL oral liquid (Ensure Plus) See Rx Instructions PO .3 x a day #90 BOTTLES 09/28/21 furosemide 20 mg tablet 20 mg PO DAILY #90 tabs 09/20/22 prednisone 2.5 mg tablet 2.5 mg PO DAILY #90 tabs 09/20/22 albuterol sulfate 2.5 mg/3 mL (0.083 %) solution for nebulization 2.5 mg (3 mL) inhalation Q4H PRN shortness of breath or wheezing #180 mL 11/15/22 electric/hospital bed #1 ea 02/01/23 motorized wheelchair #1 ea 02/01/23 atenolol 50 mg tablet 50 mg PO DAILY #90 tabs 03/22/23 albuterol sulfate 90 mcg/actuation aerosol inhaler 2 puff inhalation Q4H PRN shortness of breath or wheezing #3 ea 06/13/23 budesonide-formoterol HFA 160 mcg-4.5 mcg/actuation aerosol inhaler (Symbicort) 2 puff inhalation BID #3 device 06/13/23 ipratropium 0.5 mg-albuterol 3 mg (2.5 mg base)/3 mL nebulization soln 3 ml inhalation Q4H #120 vials 06/13/23 aspirin 81 mg tablet,delayed release 81 mg PO BREAKFAST #0 tabs 07/24/23 atorvastatin 40 mg tablet 40 mg PO QHS 30 days #0 tabs 07/24/23 Hospital Course Procedures - (v/q scan, LE duplex, tte) Summary of Care Provided Minutes Spent on Discharge: 35 Hospital Course: NEERAJ GOINS, is a 77 M with a past medical history of essential hypertension, hyperlipidemia, remote history of coronary artery disease with previous OH approximately 25 years ago with stent placement, history of alcohol abuse; with subsequent Wernicke's encephalopathy with patient now down to a sixpack over the weekends, COPD with ongoing tobacco abuse, chronic hypoxic respiratory failure requiring 8 to 10 L of oxygen continuously, history of small cell lung cancer with pneumothorax after biopsy of the Left lung and severe peripheral vascular disease primarily on the right foot with a 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 In the ED he was found to have a troponin of 2754 and with his O2 improving it decreased to 2519. He was started on medical management but it was suspected to be type II NSTEMI due to hypoxia from disruption of supplemental oxygen. Cardiology evaluated and felt of troponin was downtrending he could be discharged home as he was not a good Photo Retoucher candidate and it is likely elevated due to his hypoxemia. Echocardiogram additionally had no wall motion abnormalities. Patient did have elevated D-dimer and was continued on heparin drip and VQ scan and lower extremity duplex obtained which were negative so this was transitioned to DVT prophylaxis. Patient back on baseline O2 and deemed stable for transfer to skilled facility for rehab. Physical Exam Narrative General: Alert, oriented, thin HEENT: Atraumatic, normocephalic Eyes: Anicteric, normal conjunctiva, extraocular movements grossly intact Neck: Supple Respiratory: Somewhat diminished at the bases, no overt respiratory distress, some transmitted upper airway sounds Cardiovascular: Regular rate GI: Soft, nontender, nondistended Extremities: No edema Musculoskeletal: Moving all extremities Neuro: No overt focal neurological deficits Skin: No rashes appreciated Psych: Cooperative Medical Records Data Medical Nutrition Assessment Dietitian: Malnutrition Criteria Met Start: 07/23/23 16:10 Freq: Status: Active Protocol: Document 07/23/23 16:12 RMA (Rec: 07/23/23 16:13 RMA [id number]) Nutrition Malnutrition Evidence of Malnutrition Exists Yes Malnutrition (moderate): Chronic Evidenced By Suboptimal Energy Intake ( Moderate),Weight Loss ( Moderate),Physical Changes ( Moderate) Clinical Problem Underweight Etiology related to inadequate energy intake/ETOH abuse Signs/Symptoms as evidenced by BMI 15.6 Status Active Problem Chronic Disease or Condition Related Malnutrition Etiology Moderate pro-tiffani malnutrition in the context of chronic disease/debility related to inadequate oral/energy intake and ETOH abuse Signs/Symptoms as evidenced by 14% weight loss x 1 year, PO meeting less than 50% estimated nutrition needs x 1 year, BMI 15.6 and fat depletion/muscle wasting noted in the face, clavicle and orbitals Status Active Problem Recommendation Dietitian Recommendations/Changes Given signs/symptoms of malnutrition, will liberalize diet to regular. Will add chocolate ensure compact BID w/ breakfast and dinner meals. Will add chocolate magic cup w / lunch. Additional ONS dependent on PO at meals. Weight / BMI Weight Weight: 41.4 kg Body Mass Index (BMI) 23.7 ABG / Lab / Microbiology Data 07/24/23 05:43 07/24/23 05:43 Laboratory: Laboratory Results - last 24 hr 07/23/23 11:02: APTT 51.4 H 07/24/23 05:43: WBC 5.2, RBC 3.01 L, Hgb 9.4 L, Hct 29.6 L, MCV 98.3 H, MCH 31.2, MCHC 31.8 L, RDW Std Deviation 46.2 H, RDW Coeff of Jaime 13.0, Plt Count 217, MPV 10.4, Immature Gran % (Auto) 0.600, Neut % (Auto) 60.0, Lymph % (Auto) 19.8, [place] % (Auto) 17.1 H, Eos % (Auto) 1.7, Baso % (Auto) 0.8, Absolute Neuts (auto) 3.1, Absolute Lymphs (auto) 1.03, Nucleated RBC % 0, Sodium 137, Potassium 4.7, Chloride 98, Carbon Dioxide 34.0 H, Anion Gap 5, BUN 44 H, Creatinine 1.27, Estim Creat Clear Calc 28.07, Est GFR (MDRD) Af Amer 70, Est GFR (MDRD) Non-Af 58 L, BUN/Creatinine Ratio 34.6 H, Glucose 88, Calcium 8.6 Radiography Diagnostic Testing: Radiology Impression Venous Doppler Study 07/21/23 09:19 Interpretation Summary No evidence for acute deep venous thrombosis bilateral lower extremities with patent and compressible bilateral great saphenous veins. Ordering Physician: Liu Hay Referring Physician: Veronica May M.D. Performed By: Hayden Rodriguez RVT D/C Instructions Discharge Diet: No restrictions Meaningful Use Info Meaningful Use Diagnoses (Choose all that apply): None applicable Discharge Plan Admission Admit Date/Time: 07/20/23 13:03 Primary Reason for Your Visit: Acute on chronic hypoxia Attending Provider: Albina Pedersen Primary Care Provider: Veronica May Consulting Providers: Bhupinder Rodriguez; Liu Joseph; Albina Pedersen; Liu Hay Instructions Patient Instructions: ED Fall Prevention Additional Instructions / Restrictions: DISCHARGE INSTRUCTIONS PLEASE READ *Please take this with you to your next doctors appointment* -Please continue nebs, aspirin, and atorvastatin -Please follow-up with your pneumatic tool repairer upon discharge -Please call your primary care provider's office upon discharge to schedule a hospital follow up within 1 week. -For any concerning signs or symptoms please call 911 or proceed to the nearest emergency department Discharge Orders/Prescriptions Prescriptions: New aspirin 81 mg Tablet,Delayed Release (Dr/Ec) 81 mg PO BREAKFAST Qty: 0 0RF atorvastatin 40 mg Tablet 40 mg PO QHS 30 Days Qty: 0 0RF Continued albuterol sulfate 2.5 mg /3 mL (0.083 %) solution for nebulization 2.5 mg INHALATION Q4H PRN (Reason: shortness of breath or wheezing) Qty: 180 6RF Symbicort 160-4.5 mcg/actuation HFA aerosol inhaler 2 puff INHALATION BID Qty: 3 3RF ipratropium-albuterol 0.5 mg-3 mg(2.5 mg base)/3 mL solution for nebulization 3 ml INHALATION Q4H Qty: 120 6RF albuterol sulfate 90 mcg/actuation HFA aerosol inhaler 2 puff INHALATION Q4H PRN (Reason: shortness of breath or wheezing) Qty: 3 3RF Rx Instructions: administer with spacer nitroglycerin 0.4 MG tablet, sublingual 0.4 mg sublingual PRN PRN (Reason: chest pain) Patient Comments: chest pain/angina Ensure Plus 0.05-1.5 gram-kcal/mL liquid See Rx Instructions PO .3 x a day Qty: 90 3RF Rx Instructions: 3 cans daily PO .3 x a day; Ensure supplements , drink on 3 x a day . okay to substitute for similar brand. prednisone 2.5 mg tablet 2.5 mg PO DAILY Qty: 90 3RF (DME) motorized wheelchair See Rx Instructions .Route .MEDSUPPLY Qty: 1 0RF Rx Instructions: As directed (DME) electric/hospital bed See Rx Instructions .Route .MEDSUPPLY Qty: 1 0RF Rx Instructions: As directed atenolol 50 mg tablet 50 mg PO DAILY Qty: 90 3RF Held furosemide 20 mg tablet 20 mg PO DAILY Qty: 90 3RF Hold Instructions: Resume on 07/25/23. Referrals / Follow Up: Veronica May MD [Primary Care Provider] - Within 1 Week Disposition Disposition (needs filled in before D/C Order can be placed): Nursing Home Facility Charges/Coding Visit Charges Inpatient E&M: 58950 Disch Hosp >30min
--- NOTE | 2023-07-24 11:52 | CASEMGMT ---
Discharge Planning Discharge orders, signed med list, and transport time sent to [facility]. [facility] will transport patient by cot at 12:30p. Nursing, SW, patient, and his daughter updated. Eli Trujillo, Discharge Planning Asst.
--- NOTE | 2023-07-24 12:01 | CASEMGMT ---
Social Work SW completed Hospital exemption. SW called daughter, she was already aware pt is leaving today at 12:30 pm, d/c automatic data processing planner Eli setting up discharge. No further needs, pt to [facility] skilled today. EDUARDO Lorenzo
== END 2023-07-24 12:48 | disposition skilled nursing facility (03) | DRG 191 ==
LOC: ED 11:26 → PCU 14:08
PROVIDERS: Family Medicine; Internal Medicine; Specialist; Admitting Provider Internal Medicine; Emergency Provider Emergency Medicine; PCP Internal Medicine; Visit Provider Internal Medicine
DX: J44.9 Chronic obstructive pulmonary disease, unspecified (principal); J96.11 Chronic respiratory failure with hypoxia; I24.89 Other forms of acute ischemic heart disease; L97.319 Non-pressure chronic ulcer of right ankle with unspecified severity; I73.9 Peripheral vascular disease, unspecified; I83.013 Varicose veins of right lower extremity with ulcer of ankle; I10 Essential (primary) hypertension; J98.01 Acute bronchospasm; I25.10 Atherosclerotic heart disease of native coronary artery without angina pectoris; E78.5 Hyperlipidemia, unspecified; I87.2 Venous insufficiency (chronic) (peripheral); I25.2 Old myocardial infarction; Z79.02 Long term (current) use of antithrombotics/antiplatelets; Z92.21 Personal history of antineoplastic chemotherapy; Z79.82 Long term (current) use of aspirin; Z79.51 Long term (current) use of inhaled steroids; Z66 Do not resuscitate; Z87.891 Personal history of nicotine dependence; Z95.5 Presence of coronary angioplasty implant and graft; Z85.118 Personal history of other malignant neoplasm of bronchus and lung; R79.89 Other specified abnormal findings of blood chemistry
CPT/HCPCS: 36415; 71045; 78582; 80048; 80053; 80061; 83735; 83880; 84443; 84484; 85025; 85027; 85379; 85610; 85730; 93005; 93306; 93970; 94640; 97110; 97162; 97166; 97530; 97535; 99285; A9540; A9567; 90662; A4216

== ENCOUNTER 2023-08-20 17:29 | Inpatient (IN) | payer MEDICARE, MEDICAID, SELFPAY ==
[2023-08-20] VITALS (7 sets, daily range): BP systolic 108–147; BP diastolic 36–83; PULSE 96–105; RESP 18–24; TEMP 36.8–37.1; O2SAT 90–100; BMI 14.1; BMI 15.0
--- NOTE | 2023-08-20 18:22 | ED.VIS.LOWEX ---
HPI History of Present Illness Chief Complaint: Wound Informant: patient and SNF Narrative Narrative: [facility] for wound on his right ankle. I am not sure how long it has been there. He evidently had a fracture some months ago. I do not think he had surgery for this. When I asked patient about it he states he did not really break the ankle but he kind of twisted on it and walk on it for some months. But he cannot give me details. He tells me he feels fine but when I ask him if the ankle hurts he does say yes. He knows he is on meds for blood pressure. He cannot tell me a lot more details. His chart also lists him as having a history of Warnicke's encephalopathy. I do not know if he has been having fevers chills nausea or vomiting. [facility] Medical History Alcohol abuse Benign hypertension CAD (coronary artery disease) COPD (chronic obstructive pulmonary disease) History of lung cancer HLD (hyperlipidemia) Hypertension Mass of left lung Pneumothorax after biopsy Pneumothorax of left lung after biopsy Small cell lung cancer Tobacco abuse Wernicke encephalopathy Home Medications nitroglycerin 0.4 mg sublingual tablet 0.4 mg sublingual PRN PRN chest pain 10/27/16 [History Last Taken Unknown] food supplemt, lactose-reduced 0.05 gram-1.5 kcal/mL oral liquid (Ensure Plus) See Rx Instructions PO .3 x a day #90 BOTTLES 09/28/21 [Rx Last Taken Unknown] furosemide 20 mg tablet 20 mg PO DAILY #90 tabs 09/20/22 [Rx Last Taken 07/20/23] prednisone 2.5 mg tablet 2.5 mg PO DAILY #90 tabs 09/20/22 [Rx Last Taken 07/20/23] albuterol sulfate 2.5 mg/3 mL (0.083 %) solution for nebulization 2.5 mg (3 mL) inhalation Q4H PRN shortness of breath or wheezing #180 mL 11/15/22 [Rx Last Taken Unknown] electric/hospital bed #1 ea 02/01/23 [Rx Last Taken Unknown] motorized wheelchair #1 ea 02/01/23 [Rx Last Taken Unknown] atenolol 50 mg tablet 50 mg PO DAILY #90 tabs 03/22/23 [Rx Last Taken 07/20/23] albuterol sulfate 90 mcg/actuation aerosol inhaler 2 puff inhalation Q4H PRN shortness of breath or wheezing #3 ea 06/13/23 [Rx Last Taken 07/20/23] budesonide-formoterol HFA 160 mcg-4.5 mcg/actuation aerosol inhaler (Symbicort) 2 puff inhalation BID #3 device 06/13/23 [Rx Last Taken 07/20/23] ipratropium 0.5 mg-albuterol 3 mg (2.5 mg base)/3 mL nebulization soln 3 ml inhalation Q4H #120 vials 06/13/23 [Rx Last Taken Unknown] aspirin 81 mg tablet,delayed release 81 mg PO BREAKFAST #0 tabs 07/24/23 [Rx Last Taken Unknown] atorvastatin 40 mg tablet 40 mg PO QHS 30 days #0 tabs 07/24/23 [Rx Last Taken Unknown] Allergy/AdvReac Type Severity Reaction Status Date / Time No Known Allergies Allergy Verified 08/20/23 17:30 Family History Mother Emphysema lung Father Heart disease Surgical History H/O repair of rotator cuff History of heart artery stent Social History Smoking Status: Former smoker alcohol intake: former year quit: 2020 details: 6 yudith beer every weekend substance use type: does not use ROS ROS ED ROS Narrative Patient is not the best informant for details. Known issues are listed below but I am really not able to get a cohesive good review of systems Integumentary Reports other Details: Wound lateral right ankle. EXAM Physical Exam Narrative Exam Narrative: CONSTITUTIONAL: Patient is nontoxic in appearance. The patient looks comfortable. Work of breathing looks normal. HEENT: No notable trauma. Mucous membranes moist. NECK:No JVD. No stridor. CARDIOVASCULAR: Rate. Regular rhythm. No notable murmur. No JVD. RESPIRATORY: No respiratory distress. Breathing is unlabored. Does have a hint of expiratory wheezes. No rhonchi. No rales. No pain with a deep breath. No chest wall tenderness. He denies being short of breath. There is a scar noted over the right shoulder. GASTROINTESTINAL: Not distended. Bowel sounds are normal. No tenderness. MUSCULOSKELETAL: Legs are very thin. The right leg does have a ulcerated area about 2-1/2 cm around overlying the fibula. It is suspicious that there is fibula visible right under this ulcerated area. The tissue is somewhat black. Around this is erythema and just a mild amount of yellowish drainage. It is slightly tender. NEUROLOGICAL: Patient is alert oriented to person. He does know he is in [facility]. He cannot tell me where he lives [place]. SKIN: See musculoskeletal exam as above. PSYCHIATRIC: Patient is calm. Mood is appropriate. Const Vital Signs: 08/20/23 17:31 08/20/23 17:31 08/20/23 17:53 Temperature 98.6 F 98.3 F Temperature Source Oral Oral Pulse Rate 105 H 103 H 103 H Respiratory Rate 20 H 21 H 24 H Blood Pressure 131/78 H 131/78 H 141/74 H Blood Pressure Mean 95 95 96 Pulse Ox 90 100 Oxygen Delivery Method Nasal Cannula Nasal Cannula Nasal Cannula Oxygen Flow Rate (L/min) 4 4 4 MDM MDM MDM Narrative Medical decision making narrative: My independent interpretation of the patient's x-rays of right ankle does show exposed bone. When you change the density of the film you can see where the skin stops bone starts and then skin resumes below it. Question a little bit of air in that area. I do not see bony erosions. This is overall consistent with the final read. Patient's CBC shows very high white count at 23,200 and this is abnormal for him. He has a high number of neutrophils. Patient's lactic acid is normal. Patient's electrolytes show no marked that he is. Graph patient does have increased white count, increased heart rate consistent with SIRS syndrome and is source of infection consistent with sepsis. This is not severe sepsis and does not have elevated lactate and he does not need bolus of IV fluids. He is treated with antibiotics. Cultures were sent. I discussed case with hospitalist and patient will be admitted. Lab Data Attestation: I reviewed the patient's lab results. Labs: Laboratory Results - last 24 hr 08/20/23 18:30 WBC 23.2 H RBC 3.35 L Hgb 10.0 L Hct 30.9 L MCV 92.2 MCH 29.9 MCHC 32.4 RDW Std Deviation 43.2 RDW Coeff of Jaime 12.7 Plt Count 333 MPV 9.6 Immature Gran % (Auto) 0.600 Neut % (Auto) 88.4 H Lymph % (Auto) 2.2 L [place] % (Auto) 8.6 Eos % (Auto) 0.0 Baso % (Auto) 0.2 Absolute Neuts (auto) 20.4 H Absolute Lymphs (auto) 0.52 L Nucleated RBC % 0 Differential Comment SEE COMMENTS Diff Path Review May foll Platelet Estimate ADEQUATE RBC Morphology N CHROM Hypochromasia RARE Anisocytosis RARE Macrocytosis RARE Sodium 135 L Potassium 3.8 Chloride 93 L Carbon Dioxide 37.0 H Anion Gap 5 BUN 22 H Creatinine 1.14 Est GFR (MDRD) Af Amer 80 Est GFR (MDRD) Non-Af 66 BUN/Creatinine Ratio 19.3 Glucose 116 H Lactic Acid 1.5 Calcium 9.2 Radiography Diagnostic Testing: Clinical Impression(s) from Imaging Studies Ankle X-Ray 08/20/23 18:40 IMPRESSION: Suspected subcutaneous gas at the lateral malleolus concerning for necrotizing infection. No definitive evidence of osteomyelitis. Electronically Signed: Mario Alberto Chin MD at 19:07 EST , Discharge Plan Triage Chief Complaint: Wound ED Provider: Walter Montoya Dx/Rx/DC Orders Clinical Impression: Ulcer of right ankle, Leukocytosis, Cellulitis of right ankle, Sepsis Prescriptions: No Action albuterol sulfate 2.5 mg /3 mL (0.083 %) solution for nebulization 2.5 mg INHALATION Q4H PRN (Reason: shortness of breath or wheezing) Qty: 180 6RF Symbicort 160-4.5 mcg/actuation HFA aerosol inhaler 2 puff INHALATION BID Qty: 3 3RF ipratropium-albuterol 0.5 mg-3 mg(2.5 mg base)/3 mL solution for nebulization 3 ml INHALATION Q4H Qty: 120 6RF albuterol sulfate 90 mcg/actuation HFA aerosol inhaler 2 puff INHALATION Q4H PRN (Reason: shortness of breath or wheezing) Qty: 3 3RF Rx Instructions: administer with spacer nitroglycerin 0.4 MG tablet, sublingual 0.4 mg sublingual PRN PRN (Reason: chest pain) Patient Comments: chest pain/angina aspirin 81 mg Tablet,Delayed Release (Dr/Ec) 81 mg PO BREAKFAST Qty: 0 0RF atorvastatin 40 mg Tablet 40 mg PO QHS 30 Days Qty: 0 0RF Ensure Plus 0.05-1.5 gram-kcal/mL liquid See Rx Instructions PO .3 x a day Qty: 90 3RF Rx Instructions: 3 cans daily PO .3 x a day; Ensure supplements , drink on 3 x a day . okay to substitute for similar brand. furosemide 20 mg tablet 20 mg PO DAILY Qty: 90 3RF Hold Instructions: Resume on 07/25/23. prednisone 2.5 mg tablet 2.5 mg PO DAILY Qty: 90 3RF (DME) motorized wheelchair See Rx Instructions .Route .MEDSUPPLY Qty: 1 0RF Rx Instructions: As directed (DME) electric/hospital bed See Rx Instructions .Route .MEDSUPPLY Qty: 1 0RF Rx Instructions: As directed atenolol 50 mg tablet 50 mg PO DAILY Qty: 90 3RF Primary Care Provider: Leonardo Lovelace Referrals: Leonardo Lovelace MD [Primary Care Provider] - Disposition Disposition: Acute Care Hospital [facility]
--- NOTE | 2023-08-20 18:40 | RAD_ITS ---
INDICATION: Wound with history of fracture EXAMINATION/TECHNIQUE: X-RAY - RIGHT XR Ankle Min 3 Views COMPARISON: None. FINDINGS: 3 views of the right ankle were obtained. Suspected subcutaneous gas at the lateral malleolus. No gross osseous erosion. Old fractures of the distal tibia and fibula. No acute fracture identified. RAD/Ankle min 3 Views IMPRESSION: Suspected subcutaneous gas at the lateral malleolus concerning for necrotizing infection. No definitive evidence of osteomyelitis. Electronically Signed: Mario Alberto Chin MD at 19:07 EST ,
[2023-08-20 19:00] LABS: Absolute Lymphocyte Count 0.52 X10^3/uL (0.83-4.51); Absolute Neutrophil Count 20.4 X10^3/uL (2.0-7.7); Basophil# 0.05 X10^3/uL; Basophil% 0.2 % (0-1); Hematocrit 30.9 % (40-54); Lymphocyte # 0.52 X10^3/ul (0.83-4.51); Lymphocyte % 2.2 % (19-41); Mean Corp Hgb Conc 32.4 g/dL (32-36); Mean Corpuscular Hgb 29.9 pg (27.0-32.0); Mean Corpuscular Volume 92.2 fL (80-94); Mean Platelet Vol. 9.6 fl (6.2-12.0); Monocyte# 1.99 X10^3/uL; Monocyte% 8.6 % (0-10); NRBC Flagged by Analyzer 0 % (0-5); Neutrophil # 20.44 X10^3/uL (2.7-7.7); Neutrophil % 88.4 % (47-70); POSITIVE DIFFERENTIAL YES; Platelet Count 333 K/mm3 (150-450); RBC Distribution Width CV 12.7 % (11.6-14.6); RBC Distribution Width SD 43.2 fl (35.1-43.9); Red Blood Count 3.35 M/mm3 (4.6-6.2); White Blood Count 23.2 K/mm3 (4.4-11.0)
[2023-08-20 19:12] LABS: Anion Gap 5 (5-15); BUN 22 mg/dL (7-18); BUN/Creat Ratio 19.3 RATIO (10-20); Calcium,Total 9.2 mg/dL (8.5-10.1); Chloride 93 mmol/L (98-107); Creatinine, Serum 1.14 mg/dL (0.70-1.30); EST Glomerular Filtration Rate 66 mL/min (>60); Est Glom Filt Rate - Afr Amer 80 mL/min (>60); Glucose 116 mg/dL (74-106); Potassium 3.8 mmol/L (3.5-5.1); Sodium Level 135 mmol/L (136-145)
[2023-08-20 19:18] LABS: Differential Indicated SCAN CRITERIA MET; Lactic Acid 1.5 mmol/L (0.4-1.9)
[2023-08-20 19:25] LABS: Anisocytosis RARE; Differential Comment SEE COMMENTS; Hypochromasia RARE; Macrocytosis RARE; Platelet Estimate ADEQUATE (ADEQ); Red Cell Morphology N CHROM NORMAL (NORM C&C)
[2023-08-20] MEDS: Cefazolin 2 GM in 0.9% Normal Saline (100mL Bag) 100 ML IV (19:27)
--- NOTE | 2023-08-20 19:36 | PCM.HP.STD ---
[facility] - General General Date of Admission: 08/20/23 Date of Service: 08/20/23 Chief Complaint: Right ankle wound with redness, swelling and black discoloration. HPI Narrative NEERAJ GOINS, is a 77 M with a past medical history of essential hypertension, hyperlipidemia, history of alcohol abuse; with subsequent Wernicke's encephalopathy, history of tobacco abuse (quit 2020); with subsequent COPD and previous small cell lung cancer of the left lung, history of pneumothorax of the left lung after biopsy, history of coronary artery disease; status post stent and history of right ankle fracture a few months ago who presents to [facility] ER complaining of worsening right ankle wound with redness, swelling and black discoloration. Mr. Goins is not a reliable historian at this time so information was gathered from the chart, medical staff and computer. The patient resides at [facility] and they apparently noticed a worsening of his apparently chronic right ankle wound with patient also complaining of some pain. A review of his records show no signs of fevers, chills, nausea, vomiting, constipation or diarrhea but he was noted to have foul-smelling drainage coming from the area on his initial evaluation. In the ER he was diagnosed with severe right ankle cellulitis complicated by suspected osteomyelitis with gas present on initial x-rays with leukocytosis of 23.3 present on admission, tachycardia, altered mental status and definite source of infection consistent with suspected sepsis present on admission and he was then admitted to the PCU for ongoing care for stay that is expected to be greater than 48 hours. [facility]LY [facility] Medical History Alcohol abuse Benign hypertension CAD (coronary artery disease) COPD (chronic obstructive pulmonary disease) History of lung cancer HLD (hyperlipidemia) Hypertension Mass of left lung Pneumothorax after biopsy Pneumothorax of left lung after biopsy Small cell lung cancer Tobacco abuse Wernicke encephalopathy Home Medications nitroglycerin 0.4 mg sublingual tablet 0.4 mg sublingual PRN PRN chest pain 10/27/16 [History Last Taken Unknown] furosemide 20 mg tablet 20 mg PO DAILY #90 tabs 09/20/22 [Rx Last Taken 07/20/23] prednisone 2.5 mg tablet 2.5 mg PO DAILY #90 tabs 09/20/22 [Rx Last Taken 07/20/23] albuterol sulfate 2.5 mg/3 mL (0.083 %) solution for nebulization 2.5 mg (3 mL) inhalation Q4H PRN shortness of breath or wheezing #180 mL 11/15/22 [Rx Last Taken Unknown] electric/hospital bed #1 ea 02/01/23 [Rx Last Taken Unknown] motorized wheelchair #1 ea 02/01/23 [Rx Last Taken Unknown] atenolol 50 mg tablet 50 mg PO DAILY #90 tabs 03/22/23 [Rx Last Taken 07/20/23] aspirin 81 mg tablet,delayed release 81 mg PO BREAKFAST #0 tabs 07/24/23 [Rx Last Taken Unknown] atorvastatin 40 mg tablet 40 mg PO QHS 30 days #0 tabs 07/24/23 [Rx Last Taken Unknown] bisacodyl 10 mg rectal suppository 10 mg NV DAILY PRN constipation 08/20/23 [History Last Taken Unknown] buspirone 10 mg tablet 10 mg PO TID 08/20/23 [History Last Taken Unknown] fluticasone 250 mcg-salmeterol 50 mcg/dose blistr powdr for inhalation 1 inh inhalation DAILY 08/20/23 [History Last Taken Unknown] ipratropium 0.5 mg-albuterol 3 mg (2.5 mg base)/3 mL nebulization soln 3 ml inhalation Q4H PRN shortness of breath or wheezing 08/20/23 [History Last Taken Unknown] magnesium hydroxide 400 mg/5 mL oral suspension (Milk of Magnesia) 5 ml PO DAILY PRN constipation 08/20/23 [History Last Taken Unknown] multivitamin (Daily Multi-Vitamin tablet) 1 tab PO DAILY 08/20/23 [History Last Taken Unknown] Allergy/AdvReac Type Severity Reaction Status Date / Time No Known Allergies Allergy Verified 08/20/23 17:30 Family History Mother Emphysema lung Father Heart disease Surgical History H/O repair of rotator cuff History of heart artery stent Social History Smoking Status: Former smoker alcohol intake: former year quit: 2021 details: 6 yudith beer every weekend substance use type: does not use ROS ROS Narrative A full review of systems was not possible due to patient's Wernicke's encephalopathy. Review of Systems ROS Unobtainable: due to encephalopathy Vital Signs Vital Signs Vital Signs: 08/20/23 17:31 08/20/23 17:31 08/20/23 17:53 Temperature 98.6 F 98.3 F Temperature Source Oral Oral Pulse Rate 105 H 103 H 103 H Respiratory Rate 20 H 21 H 24 H Blood Pressure 131/78 H 131/78 H 141/74 H Blood Pressure Mean 95 95 96 Pulse Ox 90 100 Oxygen Delivery Method Nasal Cannula Nasal Cannula Nasal Cannula Oxygen Flow Rate (L/min) 4 4 4 Physical Exam Const alert and no apparent distress Constitutional Narrative: Patient appears cachectic, unkempt and poorly nourished. General Appearance: cooperative Orientation / Consciousness: confused HEENT normocephalic, head/scalp atraumatic, hearing grossly normal bilaterally, moist oral mucous membranes and oropharynx normal Eyes PERRL and EOMs intact bilaterally Neck no lymphadenopathy, supple and no JVD Resp normal respiratory effort, no retractions, no use of accessory muscles and clear to auscultation bilaterally Cardio regular rate and regular rhythm GI normal to inspection, nondistended, normoactive bowel sounds, soft to palpation, non-tender and non-distended Extremity Extremity Narrative: Patient has very thin lower extremities with his right ankle having an ~2.5 cm ulcerated area with the underlying fibula black and surrounded by an area of erythema with a mild amount of yellowish drainage and mild tenderness to palpation in this region. Skin Skin Narrative: Patient has very thin lower extremities with his right ankle having an ~2.5 cm ulcerated area with the underlying fibula black and surrounded by an area of erythema with a mild amount of yellowish drainage and mild tenderness to palpation in this region. Neuro CN's II-XII intact bilaterally, moves all extremities and no focal motor deficits Sensorium / Orientation: awake, alert and oriented to person Speech: speech normal Motor Exam: strength 5/5 throughout Psych affect normal Results Medical Records Data Attestation: I reviewed the patient's medical records Lab / Micro Data Attestation: I reviewed the patient's lab results. 08/20/23 18:30 08/20/23 18:30 Labs: Laboratory Results - last 24 hr 08/20/23 18:30: WBC 23.2 H, RBC 3.35 L, Hgb 10.0 L, Hct 30.9 L, MCV 92.2, MCH 29.9, MCHC 32.4, RDW Std Deviation 43.2, RDW Coeff of Jaime 12.7, Plt Count 333, MPV 9.6, Immature Gran % (Auto) 0.600, Neut % (Auto) 88.4 H, Lymph % (Auto) 2.2 L, [place] % (Auto) 8.6, Eos % (Auto) 0.0, Baso % (Auto) 0.2, Absolute Neuts (auto) 20.4 H, Absolute Lymphs (auto) 0.52 L, Nucleated RBC % 0, Differential Comment SEE COMMENTS, Diff Path Review January foll, Platelet Estimate ADEQUATE, RBC Morphology N CHROM, Hypochromasia RARE, Anisocytosis RARE, Macrocytosis RARE, Sodium 135 L, Potassium 3.8, Chloride 93 L, Carbon Dioxide 37.0 H, Anion Gap 5, BUN 22 H, Creatinine 1.14, Est GFR (MDRD) Af Amer 80, Est GFR (MDRD) Non-Af 66, BUN/Creatinine Ratio 19.3, Glucose 116 H, Lactic Acid 1.5, Calcium 9.2 Imagaing Radiology Impression Ankle X-Ray 08/20/23 18:40 IMPRESSION: Suspected subcutaneous gas at the lateral malleolus concerning for necrotizing infection. No definitive evidence of osteomyelitis. Electronically Signed: Mario Alberto Chin MD at 19:07 EST Reading Location ID and State: [facility] / [place] Tel , Service support , Assessment & Plan Assessment/Plan (1) Cellulitis of right ankle: (2) Sepsis: QUALIFIERS: Sepsis acute organ dysfunction status: with acute organ dysfunction Sepsis type: sepsis due to unspecified organism Severe sepsis acute organ dysfunction type: encephalopathy Severe sepsis shock status: without septic shock Qualified Code(s): A41.9 - Sepsis, unspecified organism; R65.20 - Severe sepsis without septic shock; G93.41 - Metabolic encephalopathy (3) Leukocytosis: QUALIFIERS: Leukocytosis type: unspecified Qualified Code(s): D72.829 - Elevated white blood cell count, unspecified (4) Ulcer of right ankle: QUALIFIERS: Non-pressure ulcer stage: with necrosis of bone Qualified Code(s): L97.314 - 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 Sepsis due to right ankle cellulitis with ulceration and suspected necrotizing infection and likely osteomyelitis with gas present on admission x-rays with blackened discoloration of exposed bone - Admit to PCU for treatment under the sepsis protocol. Continue broad-spectrum antibiotics with IV vancomycin and IV Zosyn and await culture and sensitivity data. Tylenol as needed for fever or pain. Finally, we will consult Dr. Núñez of the podiatry service to see this patient on rounds in the a.m. for further recommendations with help appreciated in advance. 2. Acute metabolic encephalopathy in the setting of chronic Wernicke's encephalopathy complicating #1 - Continue supportive care and monitor for improvement. Check B12, folate and TSH to evaluate for potentially reversible causes of confusion. 3. Generalized weakness with ambulatory dysfunction and debility arising from #1 & #2 - PT/OT and director case to consult and treat this admission with help appreciated in advance. 4. Essential hypertension - Hold scheduled antihypertensives in light of #1. Give IV hydralazine as needed for systolic blood pressure greater than 160 mmHg. 5. Hyperlipidemia - Resume statin as previous. 6. History of tobacco abuse; with subsequent COPD in the setting of known previous left lung pneumothorax and small cell lung cancer - Noted with no evidence of flare at this time. Continue as needed nebulizers and supplemental oxygen. 7. History of coronary artery disease; status post stent - Continue aspirin and statin at this time. Also give as needed sublingual nitroglycerin for chest pain if it should develop. 8. DVT prophylaxis - Lovenox 40 mg subcu daily plus SCDs. Update: Patient was rechecked approximately 4 hours after admission with his initial lactate of 1 mmol/L present on admission remaining normal at 1 mmol/L on second check. Also his vital signs of improved with no new issues noted. Total time: Approximately 55 minutes. Sepsis Attestation Sepsis Alert: Yes Sepsis Attestation: Agree w/Sepsis Date exam was performed: 08/20/23 Time exam was performed: 20:00 Possible Source of Sepsis: Bone/joint Sepsis Organ Dysfunction Criteria Present: New/Unexplained change in mental status Fluid Resuscitation Fluid resuscitation indicated?: Yes Fluid Resuscitation ordered: 30 ml/kg fluid bolus ordered Sepsis Note Date exam was performed: 08/20/23 Time exam was performed: 23:59 Sepsis Attestation: Sepsis re-evaluation was performed Response to fluids: Fluid responsive hypotension Charges/Coding Visit Charges Inpatient E&M: 75198 Init Hosp L2
[2023-08-20] MEDS: 0.9% Normal Saline (1000mL) 1,000 ML 999 ML IV ×2 (21:18→22:45)
[2023-08-20] MEDS: Vancomycin IV 1,000 MG/200 ML BAG 200 MG IV (21:22)
--- NOTE | 2023-08-20 21:53 | PCM.RX.CS ---
Consult Antibiotic Management Pharmacy has been consulted to manage selected antiobiotic: Vancomycin Type of Intervention Type of Consult: New start Labs Labs: Sodium 135 mmol/L (136-145) L 08/20/23 18:30 Potassium 3.8 mmol/L (3.5-5.1) 08/20/23 18:30 Chloride 93 mmol/L (98-107) L 08/20/23 18:30 Carbon Dioxide 37.0 mmol/L (21.0-32.0) H 08/20/23 18:30 Anion Gap 5 (5-15) 08/20/23 18:30 BUN 22 mg/dL (7-18) H 08/20/23 18:30 Creatinine 1.14 mg/dL (0.70-1.30) 08/20/23 18:30 Est GFR (MDRD) Af Amer 80 mL/min (>60) 08/20/23 18:30 Est GFR (MDRD) Non-Af 66 mL/min (>60) 08/20/23 18:30 BUN/Creatinine Ratio 19.3 RATIO (10-20) 08/20/23 18:30 Glucose 116 mg/dL (74-106) H 08/20/23 18:30 Dosing Weight Weight used for dosin.8 kg Estimated Creatinine Clearance Estimated Creatinine Clearance: 29.5 Goal Trough Goal Trough: 15-20 mcg/mL Pharmacy Plan for Drug Dosing Pharmacy Plan for Drug Dosing: Pharmacy Service will continue to monitor and adjust dosing as required. Follow-Up Labs Follow-Up Labs: Trough: Vancomycin Date/Time Labs Ordered Labs to be done on [date and time ordered]: 08/22 @ 2100
[2023-08-20] MEDS: Piperacil/Tazobactam 3.375 GM in 0.9% Normal Saline (50mL MB+) 50 ML IV (22:36)
[2023-08-21] VITALS (14 sets, daily range): BP systolic 97–155; BP diastolic 61–125; PULSE 72–100; RESP 18–22; TEMP 36.1–37.1; O2SAT 90–100; BMI 15.0
[2023-08-21] MEDS: Albuterol 2.5 MG/3 ML VIAL.NEB. INHALATION ×3 (00:38→11:21)
[2023-08-21 00:45] LABS: Thyroid Stim Hormone (TSH) 0.84 uIU/mL (0.358-3.74)
[2023-08-21] MEDS: Piperacil/Tazobactam 3.375 GM in 0.9% Normal Saline (50mL MB+) 50 ML IV ×3 (05:03→22:59)
[2023-08-21 06:18] LABS: Absolute Lymphocyte Count 0.67 X10^3/uL (0.83-4.51); Absolute Neutrophil Count 23.7 X10^3/uL (2.0-7.7); Basophil# 0.05 X10^3/uL; Basophil% 0.2 % (0-1); Eosinophil# 0.04 X10^3/uL; Eosinophils% 0.1 % (0-5); Hematocrit 30.6 % (40-54); Hemoglobin 9.7 g/dL (13.0-16.5); Lymphocyte # 0.67 X10^3/ul (0.83-4.51); Lymphocyte % 2.5 % (19-41); Mean Corp Hgb Conc 31.7 g/dL (32-36); Mean Corpuscular Hgb 30.2 pg (27.0-32.0); Mean Corpuscular Volume 95.3 fL (80-94); Mean Platelet Vol. 9.8 fl (6.2-12.0); Monocyte# 2.17 X10^3/uL; Monocyte% 8.1 % (0-10); NRBC Flagged by Analyzer 0 % (0-5); Neutrophil # 23.71 X10^3/uL (2.7-7.7); Neutrophil % 88.4 % (47-70); POSITIVE DIFFERENTIAL YES; Platelet Count 318 K/mm3 (150-450); RBC Distribution Width CV 12.8 % (11.6-14.6); RBC Distribution Width SD 44.6 fl (35.1-43.9); Red Blood Count 3.21 M/mm3 (4.6-6.2); White Blood Count 26.8 K/mm3 (4.4-11.0)
[2023-08-21 06:20] LABS: Differential Indicated SCAN CRITERIA MET
[2023-08-21 06:29] LABS: Differential Comment SCANNED
[2023-08-21 06:42] LABS: Anion Gap 7 (5-15); BUN 22 mg/dL (7-18); BUN/Creat Ratio 21.4 RATIO (10-20); Calcium,Total 8.9 mg/dL (8.5-10.1); Chloride 99 mmol/L (98-107); Creatinine, Serum 1.03 mg/dL (0.70-1.30); EST Glomerular Filtration Rate 74 mL/min (>60); Est Glom Filt Rate - Afr Amer 90 mL/min (>60); Estimated Creatinine Clearance 33.27 ml/min; Glucose 87 mg/dL (74-106); Potassium 3.5 mmol/L (3.5-5.1); Sodium Level 135 mmol/L (136-145)
[2023-08-21] MEDS: Budesonide Respules 0.5 MG/2 ML AMPUL.NEB. INHALATION ×2 (07:21→18:56)
--- NOTE | 2023-08-21 07:56 | PCM.PN.HOSP ---
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 (08/20/23) Non-pressure chronic ulcer of right ankle with unspecified severity (08/20/23) Other malaise (08/20/23) Severe sepsis without septic shock (08/20/23) Subjective Subjective Patient is a 77-year-old gentleman resident and attending care facility was brought to the emergency department with right ankle cellulitis without ulceration Objective Data Objective Data Vital Signs: Vital Signs Temp Pulse Resp BP Pulse Ox O2 Del Method O2 Flow Rate 97.0 F L 77 21 H 118/87 H 95 Nasal Cannula 4 08/21/23 05:06 08/21/23 07:05 08/21/23 07:05 08/21/23 05:06 08/21/23 07:49 08/21/23 07:49 08/21/23 07:49 Oxygen Flow Rate (L/min) 4 Oxygen Delivery Method Nasal Cannula Weight: 39.8 kg Body Mass Index (BMI) 15.0 Intake & Output: Intake and Output for Last 24 Hours 08/19/23 08/20/23 08/21/23 23:59 23:59 23:59 Intake Total 1810 / 1810 50 / 50 Output Total 250 / 250 Balance 1810 / 1810 -200 / -200 Lab / Micro Data 08/21/23 05:50 08/21/23 05:50 Labs: Laboratory Results - last 24 hr 08/20/23 18:30: WBC 23.2 H, RBC 3.35 L, Hgb 10.0 L, Hct 30.9 L, MCV 92.2, MCH 29.9, MCHC 32.4, RDW Std Deviation 43.2, RDW Coeff of Jaime 12.7, Plt Count 333, MPV 9.6, Immature Gran % (Auto) 0.600, Neut % (Auto) 88.4 H, Lymph % (Auto) 2.2 L, [place] % (Auto) 8.6, Eos % (Auto) 0.0, Baso % (Auto) 0.2, Absolute Neuts (auto) 20.4 H, Absolute Lymphs (auto) 0.52 L, Nucleated RBC % 0, Differential Comment SEE COMMENTS, Diff Path Review January foll, Platelet Estimate ADEQUATE, RBC Morphology N CHROM, Hypochromasia RARE, Anisocytosis RARE, Macrocytosis RARE, Sodium 135 L, Potassium 3.8, Chloride 93 L, Carbon Dioxide 37.0 H, Anion Gap 5, BUN 22 H, Creatinine 1.14, Est GFR (MDRD) Af Amer 80, Est GFR (MDRD) Non-Af 66, BUN/Creatinine Ratio 19.3, Glucose 116 H, Lactic Acid 1.5, Calcium 9.2, Folate 17.80, TSH 0.84 08/20/23 22:06: Lactic Acid 1.0 08/21/23 05:50: WBC 26.8 H, RBC 3.21 L, Hgb 9.7 L, Hct 30.6 L, MCV 95.3 H, MCH 30.2, MCHC 31.7 L, RDW Std Deviation 44.6 H, RDW Coeff of Jaime 12.8, Plt Count 318, MPV 9.8, Immature Gran % (Auto) 0.700, Neut % (Auto) 88.4 H, Lymph % (Auto) 2.5 L, [place] % (Auto) 8.1, Eos % (Auto) 0.1, Baso % (Auto) 0.2, Absolute Neuts (auto) 23.7 H, Absolute Lymphs (auto) 0.67 L, Nucleated RBC % 0, Differential Comment SCANNED, Diff Path Review January foll, Sodium 135 L, Potassium 3.5, Chloride 99, Carbon Dioxide 29.0, Anion Gap 7, BUN 22 H, Creatinine 1.03, Estim Creat Clear Calc 33.27, Est GFR (MDRD) Af Amer 90, Est GFR (MDRD) Non-Af 74, BUN/Creatinine Ratio 21.4 H, Glucose 87, Calcium 8.9 Radiography Diagnostic Testing: Radiology Impression Ankle X-Ray 08/20/23 18:40 IMPRESSION: Suspected subcutaneous gas at the lateral malleolus concerning for necrotizing infection. No definitive evidence of osteomyelitis. Electronically Signed: Mario Alberto Chin MD at 19:07 EST , Physical Exam Narrative GENERAL: cooperative but frail looking HEENT: Atraumatic; normocephalic EYES; Anicteric, Normal Conjunctiva NECK; supple, normal thyroid, RESPIRATORY: Diminished to auscultation CARDIOVASCULAR: Regular S1 S2, GI: soft, normoactive bowel sounds, : No Renal angle tenderness; EXTREMITIES: No edema, no clubbing, MUSCULOSKELETAL: no muscle wasting NEURO: Awake; no lateralizing signs. SKIN: No Rash PSYCH; Flat affect Assessment & Plan Assessment/Plan (1) Cellulitis of right ankle: PLAN: Plan Patient is a 77-year-old gentleman resident and attending care facility was brought to the emergency department with right ankle cellulitis without ulceration 1. Sepsis ruled out (criteria not met) 2. Right ankle cellulitis with ulceration with suspected underlying osteomyelitis ? Patient admitted to regular nursing floor. Imaging studies obtained on admission did show Suspected subcutaneous gas at the lateral malleolus concerning for necrotizing infection. No definitive evidence of osteomyelitis. Patient started on vancomycin and Zosyn. Consult placed to Dr. Núñez with podiatry. MRI ordered for subsequent evaluation regarding suspected osteomyelitis 3. Acute metabolic encephalopathy ?Secondary to underlying infection 4. 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 Status post chemotherapy. Patient was deemed not a candidate for radiation therapy. Currently being monitored with observation and surveillance for recurrence as outpatient by his oncologist Dr. Puentes 5. Chronic hypoxic respiratory failure ? Secondary to end-stage COPD patient is on 8 to 10 L oxygen continuously at home 6. Hypertension - Blood pressure controlled, home medications continued with dose adjustment as needed 7. Dyslipidemia -Patient is on statin therapy, continued at home dose 8. Coronary artery disease ? With previous history of non-STEMI with subsequent stent placement patient is on guideline directed medical therapy 9. 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 Physical deconditioning - Requested for PT OT eval and child protective services social worker to assist with discharge planning 11. DVT prophylaxis - On enoxaparin Time spent in the patient's overall evaluation,decision-making process, review of diagnostic data, adjustment of management, discussion with other providers, nursing nursing and ancillary staff involved in patient's care documentation, 55 Minutes Advance planning; did discuss with the patient and family regarding advanced directives as well as CODE STATUS. Did explain the various scenarios involved ( FULL CODE, DNR CCA, DNR CCA with no intubation, and DNR CC and what each meant) patient elected to remain full code order was placed. Time spent on discussion 18 minutes. Charges/Coding Visit Charges Inpatient E&M: 07684 Subs Hosp L3 Procedures Hospitalists Procedures: 79441 Advncd Care Plan 30 Min
[2023-08-21 08:48] LABS: Erythrocyte Sedimentation Rate 60 mm/hr (0-20)
--- NOTE | 2023-08-21 09:06 | MRI_ITS ---
STUDY: MRI RIGHT ANKLE WITHOUT CONTRAST REASON FOR EXAM: Male, 77 years old. Osteomyelitis. TECHNIQUE: Standardized fat and water weighted pulse sequences were obtained in all 3 orthogonal planes. COMPARISON: Right ankle radiographs dated 08/20/2023. FINDINGS: There are old healed fracture deformities of the distal tibia and fibula. There is skin ulceration over the lateral aspect of the lateral malleolus. There is mild to moderate subcutaneous soft tissue edema along the medial aspect of the ankle as well as extending along the dorsolateral aspect of the foot. There is no discrete fluid collection or drainable abscess. Normal posterior tibialis tendon. Normal flexor digitorum longus tendon. Normal flexor hallucis longus tendon. Normal peroneus longus and brevis tendons. Normal tibialis anterior tendon. Normal extensor hallucis longus tendon. Normal extensor digitorum longus tendons. Normal Achilles tendon and teno-osseous insertion. Normal plantar fascia. Normal plantar calcaneal tubercles. Normal intrinsic muscles of the rearfoot. Normal distal tibiofibular syndesmotic ligamentous complex. Normal lateral ligamentous complex. Normal subtalar ligaments and sinus tarsi. Normal deltoid ligamentous complex. Normal plantar calcaneonavicular (spring) ligament. There is a 1.0 x 0.6 cm osteochondral lesion along the medial talar dome and a 1.3 x 1.1 cm osteochondral lesion along the lateral talar dome (axial T2 series 3 images 13-14). There is no evidence of osteomyelitis. Normal subtalar articulations. Normal talonavicular articulation. Normal calcaneocuboid articulation. Normal navicular-cuneiform articulations. MRI/Lower Ext Joint Only (Routine) IMPRESSION: Old healed fracture deformities of the distal tibia and fibula. Skin ulceration over the lateral aspect of the lateral malleolus. Mild to moderate subcutaneous soft tissue edema along the medial aspect of the ankle as well as extending along the dorsolateral aspect of the foot. 1.0 x 0.6 cm osteochondral lesion along the medial talar dome and a 1.3 x 1.1 cm osteochondral lesion along the lateral talar dome. No osteomyelitis, discrete fluid collection, or drainable abscess. Electronically Signed: Diego Leung MD at 12:10 EST Reading Location ID and State: [facility] / [place] , Service support ,
[2023-08-21 09:47] LABS: Vitamin B12 845 pg/mL (211-911)
--- NOTE | 2023-08-21 10:21 | WOUNDNOTE ---
wound photo: right lateral ankle
--- NOTE | 2023-08-21 10:35 | CASEMGMT ---
SW called patient's daughter and POA Michell and confirmed the plan is for patient to return to [place] when medically ready. Plan: d/c back to [place] at [facility] when medically ready and pending pre-cert. Lana RODRIGUEZ
[2023-08-21 11:02] LABS: M R Staph aureus DNA By PCR POSITIVE (Negative); Staph aureus DNA By PCR POSITIVE (Negative)
[2023-08-21 11:03] LABS: Probe Check PASS
--- NOTE | 2023-08-21 11:49 | PCM.CONS.GEN ---
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 This was painted with Betadine and dressed with dry sterile dressing. Recommend continued monitoring and offloading with waffle boot. Infection Right lower extremity: There is decreased muscle bulk to the lower extremity. Skin is thin with trophic changes consistent with microvascular disease. There is an ulceration noted to the lateral aspect of the right ankle overlying the fibula/lateral malleolus with exposed palpable bone and surrounding necrotic tissue. Ulceration measures 3 cm x 2.5 cm. Wound margins demonstrate subdermal hemorrhaging consistent with pressure ulceration of the lateral malleolus with surrounding erythema and lymphangitic streaking proximally to the knee. No purulent drainage, no malodor, no palpable fluctuance/bogginess. WBC currently 26.8, ESR 60, CRP, lactic acid 1.0 Wound cultures obtained, awaiting results Staph aureus protein A PCR positive, MRSA PCR positive Currently on IV Vanco/Zosyn Radiographs right lower extremity 08/20/2023 demonstrate suspected subcutaneous gas at the lateral malleolus concerning for a necrotizing infection. No definitive evidence of osteomyelitis. I have reviewed radiographs I do agree with the subcutaneous air secondary to ulceration with exposed bone at the lateral malleolus, he also is noted to have previous tibial fibular fracture of the right lower extremity. MRI performed 08/21/2023 demonstrating old healed fracture deformities of the distal tibia and fibula. Skin ulceration overlying the lateral malleolus, mild to moderate subcutaneous soft tissue edema along the medial aspect of the ankle as well as extending along the dorsal lateral aspect of the foot. There is no discrete fluid collection or drainable abscess. There is a 1.0 x 1.6 cm osteochondral lesion along the medial talar dome and a 1.3 x 1.1 cm osteochondral lesion along the lateral talar dome. No evidence of osteomyelitis. Venous studies last performed 07/23/2023 demonstrating no DVT. No recent LEAS performed. Nonpalpable pedal pulses bilateral with delayed capillary fill time. LEAS ordered, awaiting results. Dressings: Betadine and dry sterile dressing. Waffle boot applied for continued offloading of the lateral malleolus. Dressing change daily. He is to remain nonweightbearing to the right lower extremity. Medicine team currently following for medical management, they are greatly appreciated. Infectious disease consulted for antibiotic management, their assistance is appreciated. Vascular surgery consulted for possible vascular intervention pending LEAS. Wound nurse consulted for assistance with dressing changes, she is appreciated. Currently on enoxaparin for DVT prophylaxis Patient does appear to be frail with poor nutritional status and likely peripheral vascular disease that complicates healing. Does not appear to be ambulatory. Currently awaiting results LEAS. Spoke with vascular surgery pending LEAS for possible intervention, but at this time currently planning for OR debridement of ulceration on , 08/23/2023 at 12:30 PM. Patient will be n.p.o. prior to intervention. Podiatry will continue to follow Jr. Jelani Jones.[facility] [phone] HPI Consult Data Date of Consult: 08/21/23 HPI Narrative Reason for Consultation: Right lateral ankle ulceration with cellulitis HPI Narrative: NEERAJ GOINS, is a 77 M who presents to [facility] by way of the [facility] on 08/20/2023 with worsening right lateral ankle wound with cellulitis. He has PMHx of PVD, CAD with stent placement, COPD with previous small cell lung cancer left lung, history of pneumothorax after lung biopsy, history of tobacco abuse (quit 2010), HTN, HLD, history of alcohol abuse with Warnicke's encephalopathy, history of right ankle fracture a few months ago. He was last admitted to [facility] 07/20/2023 through 07/23/2023 and did have small right lateral ankle eschar and upon discharge was being treated at the [facility] applying Medihoney to the wound daily with DSD. It is noted over last month ulceration has worsened with lower extremity cellulitis with lymphangitis extending proximally to the knee. In the ED WBC noted to be 23.2, lactic acid 1.5 which did decrease to 1.0, sodium 135, potassium 3.8, BUN 22, creatinine 1.14, glucose 116. Radiographs obtained in the ED demonstrate soft tissue ulceration with exposed bone, subcutaneous air, no evidence of osteomyelitis. He was started empirically on IV Vanco/Zosyn. Was admitted to [facility] and podiatry consulted for further evaluation of the right lateral ankle ulceration with exposed bone with likely osteomyelitis. Patient is poor historian and is aware he is at [facility] however beyond this is unsure of how long ulceration has been present. States he has not walked in a long time. He demonstrates no F/chills/N/V/C/D. [facility] Medical History Alcohol abuse Benign hypertension CAD (coronary artery disease) COPD (chronic obstructive pulmonary disease) History of lung cancer HLD (hyperlipidemia) Hypertension Mass of left lung Pneumothorax after biopsy Pneumothorax of left lung after biopsy Small cell lung cancer Tobacco abuse Wernicke encephalopathy Home Medications nitroglycerin 0.4 mg sublingual tablet 0.4 mg sublingual PRN PRN chest pain 10/27/16 [History Last Taken Unknown] furosemide 20 mg tablet 20 mg PO DAILY #90 tabs 09/20/22 [Rx Last Taken 07/20/23] prednisone 2.5 mg tablet 2.5 mg PO DAILY #90 tabs 09/20/22 [Rx Last Taken 07/20/23] albuterol sulfate 2.5 mg/3 mL (0.083 %) solution for nebulization 2.5 mg (3 mL) inhalation Q4H PRN shortness of breath or wheezing #180 mL 11/15/22 [Rx Last Taken Unknown] electric/hospital bed #1 ea 02/01/23 [Rx Last Taken Unknown] motorized wheelchair #1 ea 02/01/23 [Rx Last Taken Unknown] atenolol 50 mg tablet 50 mg PO DAILY #90 tabs 03/22/23 [Rx Last Taken 07/20/23] aspirin 81 mg tablet,delayed release 81 mg PO BREAKFAST #0 tabs 07/24/23 [Rx Last Taken Unknown] atorvastatin 40 mg tablet 40 mg PO QHS 30 days #0 tabs 07/24/23 [Rx Last Taken Unknown] bisacodyl 10 mg rectal suppository 10 mg [place] DAILY PRN constipation 08/20/23 [History Last Taken Unknown] buspirone 10 mg tablet 10 mg PO TID 08/20/23 [History Last Taken Unknown] fluticasone 250 mcg-salmeterol 50 mcg/dose blistr powdr for inhalation 1 inh inhalation DAILY 08/20/23 [History Last Taken Unknown] ipratropium 0.5 mg-albuterol 3 mg (2.5 mg base)/3 mL nebulization soln 3 ml inhalation Q4H PRN shortness of breath or wheezing 08/20/23 [History Last Taken Unknown] magnesium hydroxide 400 mg/5 mL oral suspension (Milk of Magnesia) 5 ml PO DAILY PRN constipation 08/20/23 [History Last Taken Unknown] multivitamin (Daily Multi-Vitamin tablet) 1 tab PO DAILY 08/20/23 [History Last Taken Unknown] Allergy/AdvReac Type Severity Reaction Status Date / Time No Known Allergies Allergy Verified 08/20/23 17:30 Family History Mother Emphysema lung Father Heart disease Surgical History H/O repair of rotator cuff History of heart artery stent Social History Smoking Status: Former smoker alcohol intake: former year quit: 2020 details: 6 yudith beer every weekend substance use type: does not use ROS ROS Narrative Unable to obtain due to patient's poor historian/encephalopathy status. Review of Systems ROS Unobtainable: due to encephalopathy Physical Exam Const alert and no apparent distress Constitutional Narrative: Patient appears nontoxic, but unkempt and poorly nourished. General Appearance: cooperative HEENT normocephalic Eyes General Eye: normal appearance of both eyes Neck General: normal visual inspection Lymph Lymphatic: no lymphedema noted Resp normal respiratory effort Resp Narrative: On 6 L oxygen. Cardio regular rate and regular rhythm Extremity no calf tenderness and no pedal edema Extremity Narrative: DP and PT pulses nonpalpable bilaterally. Capillary fill sluggish and delayed to digits bilateral. Overall legs are very thin with decreased muscle bulk. Right lower extremity: Skin is thin with trophic changes consistent with microvascular disease. There is an ulceration noted to the lateral aspect of the right ankle overlying the fibula/lateral malleolus with exposed palpable bone and surrounding necrotic tissue. Ulceration measures 3 cm x 2.5 cm. Wound margins demonstrate subdermal hemorrhaging consistent with pressure ulceration of the lateral malleolus with surrounding erythema and lymphangitic streaking proximally to the knee. No purulent drainage, no malodor, no palpable fluctuance/bogginess. There is decreased muscle bulk to the lower extremity. Left lower extremity: Skin is thin with trophic changes consistent with microvascular disease. There is small callus/preulcerative lesion to the medial aspect of the first metatarsal head with subsequent HAV deformity. No signs of infection. There is decreased muscle bulk of the lower extremity. Neuro moves all extremities Lab / Micro Data 08/21/23 05:50 08/21/23 05:50 Labs: Laboratory Results - last 24 hr 08/20/23 18:30: WBC 23.2 H, RBC 3.35 L, Hgb 10.0 L, Hct 30.9 L, MCV 92.2, MCH 29.9, MCHC 32.4, RDW Std Deviation 43.2, RDW Coeff of Jaime 12.7, Plt Count 333, MPV 9.6, Immature Gran % (Auto) 0.600, Neut % (Auto) 88.4 H, Lymph % (Auto) 2.2 L, [place] % (Auto) 8.6, Eos % (Auto) 0.0, Baso % (Auto) 0.2, Absolute Neuts (auto) 20.4 H, Absolute Lymphs (auto) 0.52 L, Nucleated RBC % 0, Differential Comment SEE COMMENTS, Diff Path Review May foll, Platelet Estimate ADEQUATE, RBC Morphology N CHROM, Hypochromasia RARE, Anisocytosis RARE, Macrocytosis RARE, Sodium 135 L, Potassium 3.8, Chloride 93 L, Carbon Dioxide 37.0 H, Anion Gap 5, BUN 22 H, Creatinine 1.14, Est GFR (MDRD) Af Amer 80, Est GFR (MDRD) Non-Af 66, BUN/Creatinine Ratio 19.3, Glucose 116 H, Lactic Acid 1.5, Calcium 9.2, Folate 17.80, TSH 0.84 08/20/23 22:06: Lactic Acid 1.0 08/21/23 05:50: WBC 26.8 H, RBC 3.21 L, Hgb 9.7 L, Hct 30.6 L, MCV 95.3 H, MCH 30.2, MCHC 31.7 L, RDW Std Deviation 44.6 H, RDW Coeff of Jaime 12.8, Plt Count 318, MPV 9.8, Immature Gran % (Auto) 0.700, Neut % (Auto) 88.4 H, Lymph % (Auto) 2.5 L, [place] % (Auto) 8.1, Eos % (Auto) 0.1, Baso % (Auto) 0.2, Absolute Neuts (auto) 23.7 H, Absolute Lymphs (auto) 0.67 L, Nucleated RBC % 0, Differential Comment SCANNED, Diff Path Review January, ESR 60 H, Sodium 135 L, Potassium 3.5, Chloride 99, Carbon Dioxide 29.0, Anion Gap 7, BUN 22 H, Creatinine 1.03, Estim Creat Clear Calc 33.27, Est GFR (MDRD) Af Amer 90, Est GFR (MDRD) Non-Af 74, BUN/Creatinine Ratio 21.4 H, Glucose 87, Calcium 8.9, Vitamin B12 845 08/21/23 09:00: S.aureus Protein A PCR POSITIVE H, MRSA (PCR) POSITIVE H Imagaing Radiology Impression Ankle X-Ray 08/20/23 18:40 IMPRESSION: Suspected subcutaneous gas at the lateral malleolus concerning for necrotizing infection. No definitive evidence of osteomyelitis. Electronically Signed: Mario Alberto Chin MD at 19:07 EST ,
[2023-08-21 13:30] LABS: CRP, High Sensitivity Cardiac > 190.00 mg/L
[2023-08-21 13:34] LABS: Pathologist Review Reviewed
--- NOTE | 2023-08-21 13:53 | CASEMGMT ---
Patient has a Healthcare Power of Sinter Press Operator on file at [facility]. Patient's Healthcare Power of Sinter Press Operator is his daughter Michell. Patient does not have a Healthcare Living Will. Lana RODRIGUEZ
[2023-08-21] MEDS: 0.9% Saline Lock 10 ML Syringe IV ×2 (13:56→21:11)
[2023-08-21 14:39] LABS: Pathologist Review Reviewed
[2023-08-21] MEDS: Ipratropium/Albuterol Sulfate 3 ML AMPUL.NEB INHALATION ×2 (15:00→18:56)
[2023-08-21] MEDS: Vancomycin IV 500 MG/100 ML BAG 100 MG IV (21:11)
[2023-08-21] MEDS: Ensure Plus High Protein 120 ML LIQUID PO (21:15)
[2023-08-22] VITALS (18 sets, daily range): BP systolic 93–120; BP diastolic 67–87; PULSE 62–106; RESP 16–24; TEMP 36.4–37.2; O2SAT 93–99
[2023-08-22] MEDS: Piperacil/Tazobactam 3.375 GM in 0.9% Normal Saline (50mL MB+) 50 ML IV ×3 (06:02→22:39)
[2023-08-22] MEDS: Ipratropium/Albuterol Sulfate 3 ML AMPUL.NEB INHALATION ×4 (06:53→20:29)
[2023-08-22] MEDS: Budesonide Respules 0.5 MG/2 ML AMPUL.NEB. INHALATION ×2 (06:53→20:29)
--- NOTE | 2023-08-22 07:54 | PN_ITS ---
Subjective Subjective Patient seen early this a.m. resting in bed. Bilateral foot offloaded with waffle boot. He is noted to be restless and attempting to roll to his side for sleeping. Nursing denies overnight events. Objective Data Objective Data Vital Signs: Vital Signs Temp Pulse Resp BP Pulse Ox O2 Del Method O2 Flow Rate 97.5 F L 62 20 H 118/82 H 94 High Flow 6 08/22/23 06:04 08/22/23 06:04 08/22/23 06:04 08/22/23 06:04 08/22/23 06:04 08/22/23 06:04 08/22/23 06:04 Oxygen Flow Rate (L/min) 6 Oxygen Delivery Method High Flow Weight: 39.8 kg Body Mass Index (BMI) 15.0 Intake & Output: Intake and Output for Last 24 Hours 08/20/23 08/21/23 08/22/23 23:59 23:59 23:59 Intake Total 1810 / 1810 860 / 860 170 / 170 Output Total 800 / 800 300 / 300 Balance 1810 / 1810 60 / 60 -130 / -130 Medical Nutrition Assessment Dietitian: Malnutrition Criteria Met Start: 08/21/23 16:56 Freq: Status: Active Protocol: Document 08/21/23 16:56 RMA (Rec: 08/21/23 16:56 RMA [id number]) Nutrition Malnutrition Evidence of Malnutrition Exists Yes Malnutrition (severe): Chronic Evidenced By Suboptimal Energy Intake ( Severe),Weight Loss (Severe), Physical Changes (Severe) Clinical Problem Chronic Disease or Condition Related Malnutrition Etiology Severe protein-calorie malnutrition in the context of chronic disease and debility related to inadequate oral/ energy intake Signs/Symptoms as evidenced by BMI 15.1, ~10% weight loss x 6 months, predicted PO meeting less than 50% estimated nutrition needs and severe muscle wasting and fat depletion in the clavicle , orbital, temporal regions and arms/legs. Status Active Problem Recommendation Dietitian Recommendations/Changes Continue liberalized regular diet as tolerated. Will add ensure compact w/ breakfast. Will add Thanh BID w/ lunch and dinner. Will add 120mL ensure plus HP 4 times per day w/ medpass. May need to consider enteral nutrition support to replete energy/protein as suspect PO will likely be inadequate as established. Lab / Micro Data 08/21/23 05:50 08/21/23 05:50 Labs: Laboratory Results - last 24 hr 08/20/23 18:30: Diff Path Review Reviewed 08/21/23 05:50: Diff Path Review Reviewed, ESR 60 H, C-React Prot High Sens > 190.00 H, Vitamin B12 845 08/21/23 09:00: S.aureus Protein A PCR POSITIVE H, MRSA (PCR) POSITIVE H Radiography Diagnostic Testing: Radiology Impression Lower Extremity MRI 08/21/23 09:06 IMPRESSION: Old healed fracture deformities of the distal tibia and fibula. Skin ulceration over the lateral aspect of the lateral malleolus. Mild to moderate subcutaneous soft tissue edema along the medial aspect of the ankle as well as extending along the dorsolateral aspect of the foot. 1.0 x 0.6 cm osteochondral lesion along the medial talar dome and a 1.3 x 1.1 cm osteochondral lesion along the lateral talar dome. No osteomyelitis, discrete fluid collection, or drainable abscess. Electronically Signed: Diego Leung MD at 12:10 EST , Physical Exam Const alert and no apparent distress Constitutional Narrative: Patient appears nontoxic, but unkempt and poorly nourished. General Appearance: cooperative HEENT normocephalic Eyes General Eye: normal appearance of both eyes Neck General: normal visual inspection Lymph Lymphatic: no lymphedema noted Resp normal respiratory effort Resp Narrative: On 6 L oxygen. Cardio regular rate and regular rhythm Extremity no calf tenderness and no pedal edema Extremity Narrative: DP and PT pulses nonpalpable bilaterally. Capillary fill sluggish and delayed to digits bilateral. Overall legs are very thin with decreased muscle bulk. Right lower extremity: Skin is thin with trophic changes consistent with microvascular disease. There is an ulceration noted to the lateral aspect of the right ankle overlying the fibula/lateral malleolus with exposed palpable bone and surrounding necrotic tissue. Ulceration measures 3 cm x 2.5 cm. Wound margins demonstrate subdermal hemorrhaging consistent with pressure ulceration of the lateral malleolus with surrounding erythema and lymphangitic streaking proximally to the knee. No purulent drainage, no malodor, no palpable fluct uance/bogginess. There is decreased muscle bulk to the lower extremity. Left lower extremity: Skin is thin with trophic changes consistent with microvascular disease. There is small callus/preulcerative lesion to the medial aspect of the first metatarsal head with subsequent HAV deformity. No signs of infection. There is decreased muscle bulk of the lower extremity. 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 This was painted with Betadine and dressed with dry sterile dressing. Recommend continued monitoring and offloading with waffle boot. Infection Right lower extremity: There is decreased muscle bulk to the lower extremity. Skin is thin with trophic changes consistent with microvascular disease. There is an ulceration noted to the lateral aspect of the right ankle overlying the fibula/lateral malleolus with exposed palpable bone and surrounding necrotic tissue. Ulceration measures 3 cm x 2.5 cm. Wound margins demonstrate subdermal hemorrhaging consistent with pressure ulceration of the lateral malleolus with surrounding erythema and lymphangitic streaking proximally to the knee. No purulent drainage, no malodor, no palpable fluctuance/bogginess. WBC currently 26.8, ESR 60, CRP, lactic acid 1.0 Wound cultures obtained, awaiting results Staph aureus protein A PCR positive, MRSA PCR positive Currently on IV Vanco/Zosyn Radiographs right lower extremity 08/20/2023 demonstrate suspected subcutaneous gas at the lateral malleolus concerning for a necrotizing infection. No definitive evidence of osteomyelitis. I have reviewed radiographs I do agree with the subcutaneous air secondary to ulceration with exposed bone at the lateral malleolus, he also is noted to have previous tibial fibular fracture of the right lower extremity. MRI performed 08/21/2023 demonstrating old healed fracture deformities of the distal tibia and fibula. Skin ulceration overlying the lateral malleolus, mild to moderate subcutaneous soft tissue edema along the medial aspect of the ankle as well as extending along the dorsal lateral aspect of the foot. There is no discrete fluid collection or drainable abscess. There is a 1.0 x 1.6 cm osteochondral lesion along the medial talar dome and a 1.3 x 1.1 cm osteochondral lesion along the lateral talar dome. No evidence of osteomyelitis. Venous studies last performed 07/23/2023 demonstrating no DVT. No recent LEAS performed. Nonpalpable pedal pulses bilateral with delayed capillary fill time. LEAS ordered, awaiting results. Dressings: Betadine and dry sterile dressing. Waffle boot applied for continued offloading of the lateral malleolus. Dressing change daily. He is to remain nonweightbearing to the right lower extremity. Medicine team currently following for medical management, they are greatly appreciated. Infectious disease consulted for antibiotic management, their assistance is appreciated. Vascular surgery consulted for possible vascular intervention pending LEAS. Wound nurse consulted for assistance with dressing changes, she is appreciated. Currently on enoxaparin for DVT prophylaxis Patient does appear to be frail with poor nutritional status and likely peripheral vascular disease that complicates healing. Does not appear to be ambulatory. Currently awaiting results LEAS. Spoke with vascular surgery pending LEAS for possible intervention, but at this time currently planning for OR debridement of ulceration tomorrow, 08/23/2023 at 12:30 PM. Patient will be n.p.o. prior to intervention. Podiatry will continue to follow Jr. Bashir JonesPTrenton. [facility] [place] [phone]
--- NOTE | 2023-08-22 08:06 | PN.HOSP_ITS ---
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 Patient was al so seen in consultation by ID notes and recommendations reviewed. Objective Data Objective Data Vital Signs: Vital Signs Temp Pulse Resp BP Pulse Ox O2 Del Method O2 Flow Rate 97.5 F L 62 20 H 118/82 H 94 High Flow 6 08/22/23 06:04 08/22/23 06:04 08/22/23 06:04 08/22/23 06:04 08/22/23 06:04 08/22/23 06:04 08/22/23 06:04 Oxygen Flow Rate (L/min) 6 Oxygen Delivery Method High Flow Weight: 39.8 kg Body Mass Index (BMI) 15.0 Intake & Output: Intake and Output for Last 24 Hours 08/20/23 08/21/23 08/22/23 23:59 23:59 23:59 Intake Total 1810 / 1810 860 / 860 170 / 170 Output Total 800 / 800 300 / 300 Balance 1810 / 1810 60 / 60 -130 / -130 Medical Nutrition Assessment Dietitian: Malnutrition Criteria Met Start: 08/21/23 16:56 Freq: Status: Active Protocol: Document 08/21/23 16:56 RMA (Rec: 08/21/23 16:56 RMA [id number]) Nutrition Malnutrition Evidence of Malnutrition Exists Yes Malnutrition (severe): Chronic Evidenced By Suboptimal Energy Intake ( Severe),Weight Loss (Severe), Physical Changes (Severe) Clinical Problem Chronic Disease or Condition Related Malnutrition Etiology Severe protein-calorie malnutrition in the context of chronic disease and debility related to inadequate oral/ energy intake Signs/Symptoms as evidenced by BMI 15.1, ~10% weight loss x 6 months, predicted PO meeting less than 50% estimated nutrition needs and severe muscle wasting and fat depletion in the clavicle , orbital, temporal regions and arms/legs. Status Active Problem Recommendation Dietitian Recommendations/Changes Continue liberalized regular diet as tolerated. Will add ensure compact w/ breakfast. Will add Thanh BID w/ lunch and dinner. Will add 120mL ensure plus HP 4 times per day w/ medpass. May need to consider enteral nutrition support to replete energy/protein as suspect PO will likely be inadequate as established. Lab / Micro Data 08/22/23 07:55 08/22/23 07:55 Labs: Laboratory Results - last 24 hr 08/20/23 18:30: Diff Path Review Reviewed 08/21/23 05:50: Diff Path Review Reviewed, ESR 60 H, C-React Prot High Sens > 190.00 H, Vitamin B12 845 08/21/23 09:00: S.aureus Protein A PCR POSITIVE H, MRSA (PCR) POSITIVE H Radiography Diagnostic Testing: Radiology Impression Lower Extremity MRI 08/21/23 09:06 IMPRESSION: Old healed fracture deformities of the distal tibia and fibula. Skin ulceration over the lateral aspect of the lateral malleolus. Mild to moderate subcutaneous soft tissue edema along the medial aspect of the ankle as well as extending along the dorsolateral aspect of the foot. 1.0 x 0.6 cm osteochondral lesion along the medial talar dome and a 1.3 x 1.1 cm osteochondral lesion along the lateral talar dome. No osteomyelitis, discrete fluid collection, or drainable abscess. Electronically Signed: Diego Leung MD at 12:10 EST Reading Location ID and State: [facility] / [place] , Service support , Physical Exam Narrative GENERAL: cooperative but frail looking HEENT: Atraumatic; normocephalic EYES; Anicteric, Normal Conjunctiva NECK; supple, normal thyroid, RESPIRATORY: Diminished to auscultation CARDIOVASCULAR: Regular S1 S2, GI: soft, normoactive bowel sounds, : No Renal angle tenderness; EXTREMITIES: No edema, no clubbing, MUSCULOSKELETAL: no muscle wasting NEURO: Awake; no lateralizing signs. SKIN: No Rash PSYCH; Flat affect Assessment & Plan Assessment/Plan (1) Cellulitis of right ankle: PLAN: Plan Patient is a 77-year-old gentleman resident and attending care facility was brought to the emergency department with right ankle cellulitis without ulceration 1. Sepsis ruled out (criteria not met) 2. Right ankle cellulitis with ulceration with suspected underlying osteomyelitis ? Patient admitted to regular nursing floor. Imaging studies obtained on admis sue did show Suspected subcutaneous gas at the lateral malleolus concerning for necrotizing infection. No definitive evidence of osteomyelitis. Patient started on vancomycin and Zosyn. Consult placed to Dr. Núñez with podiatry. MRI ordered for subsequent evaluation regarding suspected osteomyelitis ? 08/22/2023; Patient seen, MRI obtained the day prior on admission demonstrated No osteomyelitis, discrete fluid collection, or drainable abscess. Patient was also seen in consultation by ID notes and recommendations review cultures were sent results pending 3. Acute metabolic encephalopathy ?Secondary to underlying infection 4. 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 Status post chemotherapy. Patient was deemed not a candidate for radiation therapy. Currently being monitored with observation and surveillance for recurrence as outpatient by his oncologist Dr. Puentes 5. Chronic hypoxic respiratory failure ? Secondary to end-stage COPD patient is on 8 to 10 L oxygen continuously at home 6. Hypertension - Blood pressure controlled, home medications continued with dose adjustment as needed 7. Dyslipidemia -Patient is on statin therapy, continued at home dose 8. Coronary artery disease ? With previous history of non-STEMI with subsequent stent placement patient is on guideline directed medical therapy 9. 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 Physical deconditioning - Requested for PT OT eval and social media content specialist to assist with discharge planning 11. DVT prophylaxis - On enoxaparin Time spent in the patient's overall evaluation,decision-making process, review of diagnostic data, adjustment of management, discussion with other providers, nursing nursing and ancillary staff involved in patient's care documentation, 40 Minutes Charges/Coding Visit Charges Inpatient E&M: 64199 Subs Hosp L2
[2023-08-22 08:42] LABS: Absolute Neutrophil Count 20.6 X10^3/uL (2.0-7.7); Basophil# 0.03 X10^3/uL; Basophil% 0.1 % (0-1); Eosinophil# 0.02 X10^3/uL; Eosinophils% 0.1 % (0-5); Hematocrit 29.1 % (40-54); Hemoglobin 9.6 g/dL (13.0-16.5); Lymphocyte % 3.5 % (19-41); Mean Corpuscular Hgb 31.3 pg (27.0-32.0); Mean Corpuscular Volume 94.8 fL (80-94); Mean Platelet Vol. 9.8 fl (6.2-12.0); Monocyte# 1.52 X10^3/uL; Monocyte% 6.6 % (0-10); NRBC Flagged by Analyzer 0 % (0-5); Neutrophil # 20.64 X10^3/uL (2.7-7.7); POSITIVE DIFFERENTIAL YES; Platelet Count 302 K/mm3 (150-450); RBC Distribution Width SD 44.7 fl (35.1-43.9); Red Blood Count 3.07 M/mm3 (4.6-6.2); White Blood Count 23.2 K/mm3 (4.4-11.0)
[2023-08-22 08:45] LABS: Differential Indicated SCAN CRITERIA MET
[2023-08-22 09:09] LABS: Anion Gap 7 (5-15); BUN 32 mg/dL (7-18); BUN/Creat Ratio 30.5 RATIO (10-20); Calcium,Total 8.8 mg/dL (8.5-10.1); Chloride 97 mmol/L (98-107); Creatinine, Serum 1.05 mg/dL (0.70-1.30); EST Glomerular Filtration Rate 73 mL/min (>60); Est Glom Filt Rate - Afr Amer 88 mL/min (>60); Estimated Creatinine Clearance 32.64 ml/min; Glucose 101 mg/dL (74-106); Magnesium 2.3 mg/dL (1.6-2.6); Phosphorus 3.1 mg/dL (2.5-4.9); Potassium 3.8 mmol/L (3.5-5.1); Sodium Level 132 mmol/L (136-145)
[2023-08-22] MEDS: Ensure Plus High Protein 120 ML LIQUID PO ×4 (09:41→22:39)
[2023-08-22] MEDS: Aspirin E.C. 81 MG Tablet PO (09:41)
[2023-08-22] MEDS: predniSONE 5 MG Tablet 2.5 MG PO (09:41)
[2023-08-22] MEDS: Enoxaparin 40 MG/0.4 ML Syringe SC (09:42)
--- NOTE | 2023-08-22 12:52 | CT_ITS ---
STUDY: CTA OF THE ABDOMINAL AORTA AND BILATERAL LOWER EXTREMITIES REASON FOR EXAM: Male, 77 years old. RLE atherosclerosis with ulceration. RADIATION DOSAGE (If Supplied By Facility): CTDIvol = ( 7.68 ) mGy, DLP = ( 943.32 ) mGycm TECHNIQUE: Axial CT angiography multi-detector data acquisition was obtained from the dome of the liver to the level of the ankles following intravenous administration of IV 100mL Isovue-370. Axial images and MIP images were reconstructed from the axial data set. Post-processing of the angiographic images was performed, with multiplanar reformation and 3D reconstruction. Individualized dose optimization techniques were used for this CT. TECHNICAL QUALITY: Good COMPARISON: None. Descriptors of Narrowing: None (0%) Mild (< 50%) Moderate (50-70%) Severe (70-90%) Subtotal/Total Occlusion (90-100%) Non-Evaluable (technically non-diagnostic FINDINGS: Diffuse fatty infiltration of the liver. Distended urinary bladder Abdominal aorta: Atherosclerotic calcific plaque. Celiac and superior mesenteric arteries: Atherosclerotic plaque formation at the origin of the vessels. Inferior mesenteric artery: Not visualized Right renal artery(arteries): Atherosclerotic plaque formation Left renal artery(arteries): Atherosclerotic plaque formation Right common iliac artery: Extensive atherosclerotic plaque formation with the focal areas of stenoses. Right external iliac artery: No demonstrated narrowing. Right internal iliac artery: No demonstrated narrowing. Left common iliac artery: Extensive atherosclerotic plaque formation with focal areas of stenosis. Left external iliac artery: No demonstrated narrowing. Left internal iliac artery: No demonstrated narrowing. RIGHT LOWER EXTREMITY Right common femoral artery: No demonstrated narrowing. Right profundus femoris: No demonstrated narrowing. Right superficial femoral: Diffuse atherosclerotic plaque formation. Right popliteal artery: Atherosclerotic plaque formation. Scattered stenoses. Right tibioperoneal trunk: Focal stenosis at its origin. Right anterior tibial artery: Patent Right posterior tibial artery: Patent Right peroneal artery: Patent although focal areas of stenoses. LEFT LOWER EXTREMITY Left common femoral artery: Atherosclerotic plaque formation Left profundus femoris: No demonstrated narrowing. Left superficial femoral: Scattered atherosclerotic plaque formation. Left popliteal artery: No demonstrated narrowing. Left tibioperoneal trunk: Focal areas of stenoses. Left anterior tibial artery: Poor runoff Left posterior tibial artery: Poor runoff Left peroneal artery: Poor runoff CT/CTA Abd w/Runoff W/WO Contrast IMPRESSION: Multiple findings as discussed above. Electronically Signed: Geo Medel MD at 14:50 EST ,
--- NOTE | 2023-08-22 14:30 | PCM.CONS.GEN ---
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 Continue parenteral antibiotic therapy and for vancomycin plus Zosyn at this point and closely follow his microbiology data and clinical course. Patient is scheduled for surgical debridement of the right ankle wound tomorrow. HPI Consult Data Date of Consult: 08/22/23 HPI Narrative Reason for Consultation: Right ankle wound with concern of infection HPI Narrative: NEERAJ GOINS, is a 77 M who presents increasing pain in his right ankle and generalized weakness. Found to have worsening changes of his right ankle wound with necrotic findings. Patient does have a history of tobacco abuse which is still active and COPD. I did review the pictures of the necrotic right ankle wound this afternoon. Patient is currently on vancomycin plus Zosyn. Patient scheduled for surgical debridement of the right ankle wound tomorrow by podiatry. No documented fevers. Patient does have a marked leukocytosis. Wound culture of the right wound growing Staphylococcus aureus and gram-negative pathogen, sensitivities to Staphylococcus aureus pending. [facility] Medical History Alcohol abuse Benign hypertension CAD (coronary artery disease) COPD (chronic obstructive pulmonary disease) History of lung cancer HLD (hyperlipidemia) Hypertension Mass of left lung Pneumothorax after biopsy Pneumothorax of left lung after biopsy Small cell lung cancer Tobacco abuse Wernicke encephalopathy Home Medications nitroglycerin 0.4 mg sublingual tablet 0.4 mg sublingual PRN PRN chest pain 10/27/16 [History Last Taken Unknown] furosemide 20 mg tablet 20 mg PO DAILY #90 tabs 09/20/22 [Rx Last Taken 07/20/23] prednisone 2.5 mg tablet 2.5 mg PO DAILY #90 tabs 09/20/22 [Rx Last Taken 07/20/23] albuterol sulfate 2.5 mg/3 mL (0.083 %) solution for nebulization 2.5 mg (3 mL) inhalation Q4H PRN shortness of breath or wheezing #180 mL 11/15/22 [Rx Last Taken Unknown] electric/hospital bed #1 ea 02/01/23 [Rx Last Taken Unknown] motorized wheelchair #1 ea 02/01/23 [Rx Last Taken Unknown] atenolol 50 mg tablet 50 mg PO DAILY #90 tabs 03/22/23 [Rx Last Taken 07/20/23] aspirin 81 mg tablet,delayed release 81 mg PO BREAKFAST #0 tabs 07/24/23 [Rx Last Taken Unknown] atorvastatin 40 mg tablet 40 mg PO QHS 30 days #0 tabs 07/24/23 [Rx Last Taken Unknown] bisacodyl 10 mg rectal suppository 10 mg [place] DAILY PRN constipation 08/20/23 [History Last Taken Unknown] buspirone 10 mg tablet 10 mg PO TID 08/20/23 [History Last Taken Unknown] fluticasone 250 mcg-salmeterol 50 mcg/dose blistr powdr for inhalation 1 inh inhalation DAILY 08/20/23 [History Last Taken Unknown] ipratropium 0.5 mg-albuterol 3 mg (2.5 mg base)/3 mL nebulization soln 3 ml inhalation Q4H PRN shortness of breath or wheezing 08/20/23 [History Last Taken Unknown] magnesium hydroxide 400 mg/5 mL oral suspension (Milk of Magnesia) 5 ml PO DAILY PRN constipation 08/20/23 [History Last Taken Unknown] multivitamin (Daily Multi-Vitamin tablet) 1 tab PO DAILY 08/20/23 [History Last Taken Unknown] Allergy/AdvReac Type Severity Reaction Status Date / Time No Known Allergies Allergy Verified 08/20/23 17:30 Family History Mother Emphysema lung Father Heart disease Surgical History H/O repair of rotator cuff History of heart artery stent Social History Smoking Status: Former smoker alcohol intake: former year quit: 2020 details: 6 yudith beer every weekend substance use type: does not use ROS ROS Narrative As stated in history of present illness otherwise negative Physical Exam Narrative Alert responsive does not appear toxic patient is chronically ill-appearing man lungs are clear heart exam S1-S2 abdomen soft nontender right ankle dressings are in place. Medical Records Data Medical Nutrition Assessment Dietitian: Malnutrition Criteria Met Start: 08/21/23 16:56 Freq: Status: Active Protocol: Document 08/21/23 16:56 RMA (Rec: 08/21/23 16:56 RMA [id number]) Nutrition Malnutrition Evidence of Malnutrition Exists Yes Malnutrition (severe): Chronic Evidenced By Suboptimal Energy Intake ( Severe),Weight Loss (Severe), Physical Changes (Severe) Clinical Problem Chronic Disease or Condition Related Malnutrition Etiology Severe protein-calorie malnutrition in the context of chronic disease and debility related to inadequate oral/ energy intake Signs/Symptoms as evidenced by BMI 15.1, ~10% weight loss x 6 months, predicted PO meeting less than 50% estimated nutrition needs and severe muscle wasting and fat depletion in the clavicle , orbital, temporal regions and arms/legs. Status Active Problem Recommendation Dietitian Recommendations/Changes Continue liberalized regular diet as tolerated. Will add ensure compact w/ breakfast. Will add Thanh BID w/ lunch and dinner. Will add 120mL ensure plus HP 4 times per day w/ medpass. May need to consider enteral nutrition support to replete energy/protein as suspect PO will likely be inadequate as established. Lab / Micro Data 08/22/23 07:55 08/22/23 07:55 Labs: Laboratory Results - last 24 hr 08/20/23 18:30: Diff Path Review Reviewed 08/21/23 09:00: S.aureus Protein A PCR POSITIVE H, MRSA (PCR) POSITIVE H 08/22/23 07:55: WBC 23.2 H, RBC 3.07 L, Hgb 9.6 L, Hct 29.1 L, MCV 94.8 H, MCH 31.3, MCHC 33.0, RDW Std Deviation 44.7 H, RDW Coeff of Jaime 13.0, Plt Count 302, MPV 9.8, Immature Gran % (Auto) 0.700, Neut % (Auto) 89.0 H, Lymph % (Auto) 3.5 L, [place] % (Auto) 6.6, Eos % (Auto) 0.1, Baso % (Auto) 0.1, Absolute Neuts (auto) 20.6 H, Absolute Lymphs (auto) 0.80 L, Nucleated RBC % 0, Differential Comment COMMENT, Diff Path Review January foll, Sodium 132 L, Potassium 3.8, Chloride 97 L, Carbon Dioxide 28.0, Anion Gap 7, BUN 32 H, Creatinine 1.05, Estim Creat Clear Calc 32.64, Est GFR (MDRD) Af Amer 88, Est GFR (MDRD) Non-Af 73, BUN/Creatinine Ratio 30.5 H, Glucose 101, Calcium 8.8, Phosphorus 3.1, Magnesium 2.3 Micro: Microbiology 08/21/23 09:00 Wound - Ankle Gram Stain - Final 08/21/23 09:00 Wound - Ankle Wound Culture - Preliminary Gram negative kai Staphylococcus aureus 08/20/23 22:11 Blood Culture (Wb) - Anticubital Right Blood Culture - Preliminary No growth in 48 hours. 08/20/23 22:06 Blood Culture (Wb) - Left Forearm Blood Culture - Preliminary No growth in 48 hours. 08/20/23 18:38 Blood Culture (Wb) - Right Forearm Blood Culture - Preliminary No growth in 48 hours. 08/20/23 18:30 Blood Culture (Wb) - Anticubital Left Blood Culture - Preliminary No growth in 48 hours.
--- NOTE | 2023-08-22 15:18 | EX.PCM.CON.S ---
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 He has severe multi-level atherosclerosis which is not amenable to endovascular revascularization. With his overall frail health including end-stage COPD, he is a very poor candidate for open surgical revascularization. Based on CTA, his atherosclerosis is such that it is unlikely that he would heal a BKA or even an AKA. Physiologic studies are still pending, but unlikely to be favorable. With no feasible revascularization or amputation options, I would advise further discussion with patient and his family regarding goals of care and to consider palliative care/hospice. If patient/family would like to further discuss from vascular perspective, please let us know. HPI Consult Data Date of Consult: 08/22/23 HPI Narrative HPI Narrative: NEERAJ GOINS, is a 77 M who presented to the [facility] ER on 08/20/23 for evaluation of a right lateral malleolus wound of unknown duration, present at least over 1 month. There is report of prior R ankle fracture a few months ago, unclear if this wound is related. At presentation to the ER, there was bone visible at the base of the ulcer, leukocytosis, and increased heart rate so was admitted for IV antibiotics and further wound management. He is not a reliable historian. On exam today, answers some questions appropriately but often does not answer at all or does not answer appropriately. No family at bedside at time of exam. His medical history is significant for history of alcohol abuse, Wernicke's encephalopathy, HT, HLD, end-stage COPD (on 6L here and as high as 8-10 at home), CAD s/p remote PCI, hx SCLC left lung. He currently resides at [facility] where he was discharged following last hospitalization in July 2023. He was seen in consultation by Dr. Núñez with podiatry and patient is scheduled for operative debridement tomorrow. [facility] Medical History Alcohol abuse Benign hypertension CAD (coronary artery disease) COPD (chronic obstructive pulmonary disease) History of lung cancer HLD (hyperlipidemia) Hypertension Mass of left lung Pneumothorax after biopsy Pneumothorax of left lung after biopsy Small cell lung cancer Tobacco abuse Wernicke encephalopathy Home Medications nitroglycerin 0.4 mg sublingual tablet 0.4 mg sublingual PRN PRN chest pain 10/27/16 [History Last Taken Unknown] furosemide 20 mg tablet 20 mg PO DAILY #90 tabs 09/20/22 [Rx Last Taken 07/20/23] prednisone 2.5 mg tablet 2.5 mg PO DAILY #90 tabs 09/20/22 [Rx Last Taken 07/20/23] albuterol sulfate 2.5 mg/3 mL (0.083 %) solution for nebulization 2.5 mg (3 mL) inhalation Q4H PRN shortness of breath or wheezing #180 mL 11/15/22 [Rx Last Taken Unknown] electric/hospital bed #1 ea 02/01/23 [Rx Last Taken Unknown] motorized wheelchair #1 ea 02/01/23 [Rx Last Taken Unknown] atenolol 50 mg tablet 50 mg PO DAILY #90 tabs 03/22/23 [Rx Last Taken 07/20/23] aspirin 81 mg tablet,delayed release 81 mg PO BREAKFAST #0 tabs 07/24/23 [Rx Last Taken Unknown] atorvastatin 40 mg tablet 40 mg PO QHS 30 days #0 tabs 07/24/23 [Rx Last Taken Unknown] bisacodyl 10 mg rectal suppository 10 mg [place] DAILY PRN constipation 08/20/23 [History Last Taken Unknown] buspirone 10 mg tablet 10 mg PO TID 08/20/23 [History Last Taken Unknown] fluticasone 250 mcg-salmeterol 50 mcg/dose blistr powdr for inhalation 1 inh inhalation DAILY 08/20/23 [History Last Taken Unknown] ipratropium 0.5 mg-albuterol 3 mg (2.5 mg base)/3 mL nebulization soln 3 ml inhalation Q4H PRN shortness of breath or wheezing 08/20/23 [History Last Taken Unknown] magnesium hydroxide 400 mg/5 mL oral suspension (Milk of Magnesia) 5 ml PO DAILY PRN constipation 08/20/23 [History Last Taken Unknown] multivitamin (Daily Multi-Vitamin tablet) 1 tab PO DAILY 08/20/23 [History Last Taken Unknown] Allergy/AdvReac Type Severity Reaction Status Date / Time No Known Allergies Allergy Verified 08/20/23 17:30 Family History Mother Emphysema lung Father Heart disease Surgical History H/O repair of rotator cuff History of heart artery stent Social History Smoking Status: Former smoker alcohol intake: former year quit: 2020 details: 6 yudith beer every weekend substance use type: does not use Physical Exam Const alert and no apparent distress Orientation / Consciousness: confused Nutritional Appearance: cachectic HEENT normocephalic, head/scalp atraumatic and hearing grossly normal bilaterally Eyes EOMs intact bilaterally General Eye: normal appearance of both eyes Neck General: normal visual inspection and trachea midline Resp normal respiratory effort and no use of accessory muscles Effort and Inspection: Negative for grunting, stridor or audible wheezes Cardio regular rate and regular rhythm Extremity Extremity Narrative: Offloading boots present bilateral feet. Skin Wounds: wounds noted Wound Narrative: Wound pictures reviewed, dressings to R foot were C/D/I and not disturbed for exam Psych Appearance: appropriate Attitude: calm Medical Records Data Medical Nutrition Assessment Dietitian: Malnutrition Criteria Met Start: 08/21/23 16:56 Freq: Status: Active Protocol: Document 08/21/23 16:56 RMA (Rec: 08/21/23 16:56 RMA [id number]) Nutrition Malnutrition Evidence of Malnutrition Exists Yes Malnutrition (severe): Chronic Evidenced By Suboptimal Energy Intake ( Severe),Weight Loss (Severe), Physical Changes (Severe) Clinical Problem Chronic Disease or Condition Related Malnutrition Etiology Severe protein-calorie malnutrition in the context of chronic disease and debility related to inadequate oral/ energy intake Signs/Symptoms as evidenced by BMI 15.1, ~10% weight loss x 6 months, predicted PO meeting less than 50% estimated nutrition needs and severe muscle wasting and fat depletion in the clavicle , orbital, temporal regions and arms/legs. Status Active Problem Recommendation Dietitian Recommendations/Changes Continue liberalized regular diet as tolerated. Will add ensure compact w/ breakfast. Will add Thanh BID w/ lunch and dinner. Will add 120mL ensure plus HP 4 times per day w/ medpass. May need to consider enteral nutrition support to replete energy/protein as suspect PO will likely be inadequate as established. Lab / Micro Data 08/22/23 07:55 12/06/23 07:55 Labs: Laboratory Results - last 24 hr 08/21/23 09:00: S.aureus Protein A PCR POSITIVE H, MRSA (PCR) POSITIVE H 08/22/23 07:55: WBC 23.2 H, RBC 3.07 L, Hgb 9.6 L, Hct 29.1 L, MCV 94.8 H, MCH 31.3, MCHC 33.0, RDW Std Deviation 44.7 H, RDW Coeff of Jaime 13.0, Plt Count 302, MPV 9.8, Immature Gran % (Auto) 0.700, Neut % (Auto) 89.0 H, Lymph % (Auto) 3.5 L, [place] % (Auto) 6.6, Eos % (Auto) 0.1, Baso % (Auto) 0.1, Absolute Neuts (auto) 20.6 H, Absolute Lymphs (auto) 0.80 L, Nucleated RBC % 0, Differential Comment COMMENT, Diff Path Review January, Sodium 132 L, Potassium 3.8, Chloride 97 L, Carbon Dioxide 28.0, Anion Gap 7, BUN 32 H, Creatinine 1.05, Estim Creat Clear Calc 32.64, Est GFR (MDRD) Af Amer 88, Est GFR (MDRD) Non-Af 73, BUN/Creatinine Ratio 30.5 H, Glucose 101, Calcium 8.8, Phosphorus 3.1, Magnesium 2.3 Micro: Microbiology 08/21/23 09:00 Wound - Ankle Gram Stain - Final 08/21/23 09:00 Wound - Ankle Wound Culture - Preliminary Gram negative kai Staphylococcus aureus 08/20/23 22:11 Blood Culture (Wb) - Anticubital Right Blood Culture - Preliminary No growth in 48 hours. 08/20/23 22:06 Blood Culture (Wb) - Left Forearm Blood Culture - Preliminary No growth in 48 hours. 08/20/23 18:38 Blood Culture (Wb) - Right Forearm Blood Culture - Preliminary No growth in 48 hours. 08/20/23 18:30 Blood Culture (Wb) - Anticubital Left Blood Culture - Preliminary No growth in 48 hours. Imagaing Radiology Impression Abdomen/Pelvis CTA 08/22/23 12:52 IMPRESSION: Multiple findings as discussed above. Electronically Signed: Geo Medel MD at 14:50 EST , Charges/Coding Visit Charges Inpatient E&M: 19715 Init Hosp L2
[2023-08-22 21:48] LABS: Vancomycin, Trough Level 8.3 ug/mL (5.0-15.0)
--- NOTE | 2023-08-22 22:17 | PCM.RX.CS ---
Consult Antibiotic Management Pharmacy has been consulted to manage selected antiobiotic: Vancomycin Type of Intervention Type of Consult: Follow-up Suspected Infection Suspected Infection: Sepsis Labs Labs: Sodium 132 mmol/L (136-145) L 08/22/23 07:55 Potassium 3.8 mmol/L (3.5-5.1) 08/22/23 07:55 Chloride 97 mmol/L (98-107) L 08/22/23 07:55 Carbon Dioxide 28.0 mmol/L (21.0-32.0) 08/22/23 07:55 Anion Gap 7 (5-15) 08/22/23 07:55 BUN 32 mg/dL (7-18) H 08/22/23 07:55 Creatinine 1.05 mg/dL (0.70-1.30) 08/22/23 07:55 Est GFR (MDRD) Af Amer 88 mL/min (>60) 08/22/23 07:55 Est GFR (MDRD) Non-Af 73 mL/min (>60) 08/22/23 07:55 BUN/Creatinine Ratio 30.5 RATIO (10-20) H 08/22/23 07:55 Glucose 101 mg/dL (74-106) 08/22/23 07:55 Vancomycin Trough 8.3 ug/mL (5.0-15.0) 08/22/23 21:09 Microbiology Microbiology: Microbiology 08/21/23 09:00 Wound - Ankle Gram Stain - Final 08/21/23 09:00 Wound - Ankle Wound Culture - Preliminary Gram negative kai Staphylococcus aureus 08/20/23 22:11 Blood Culture (Wb) - Anticubital Right Blood Culture - Preliminary No growth in 48 hours. 08/20/23 22:06 Blood Culture (Wb) - Left Forearm Blood Culture - Preliminary No growth in 48 hours. 08/20/23 18:38 Blood Culture (Wb) - Right Forearm Blood Culture - Preliminary No growth in 48 hours. 08/20/23 18:30 Blood Culture (Wb) - Anticubital Left Blood Culture - Preliminary No growth in 48 hours. Dosing Weight Weight used for dosin.8 kg Estimated Creatinine Clearance Estimated Creatinine Clearance: 33 Goal Trough Goal Trough: 15-20 mcg/mL Pharmacy Plan for Drug Dosing Pharmacy Plan for Drug Dosing: Vancomycin trough level of 8.3, drawn 24hrs post-dose, was below the target range of 15-20. Will increase the dose to 1000mg q24h and re-draw a trough prior to 3rd dose of new regimen. Pharmacy Service will continue to monitor and adjust dosing as required. Follow-Up Labs Follow-Up Labs: Trough: Vancomycin Date/Time Labs Ordered Labs to be done on [date and time ordered]: 08/24/23 @2200
[2023-08-22] MEDS: Vancomycin IV 1,000 MG/200 ML BAG 200 MG IV (22:39)
[2023-08-22] MEDS: Albuterol 2.5 MG/3 ML VIAL.NEB. INHALATION (23:23)
[2023-08-23] VITALS (17 sets, daily range): BP systolic 92–159; BP diastolic 69–142; PULSE 90–110; RESP 16–20; TEMP 36.1–36.7; O2SAT 88–100; BMI 15.0
[2023-08-23] MEDS: Albuterol 2.5 MG/3 ML VIAL.NEB. INHALATION (02:35)
[2023-08-23 04:20] LABS: Absolute Lymphocyte Count 0.88 X10^3/uL (0.83-4.51); Absolute Neutrophil Count 17.3 X10^3/uL (2.0-7.7); Basophil# 0.02 X10^3/uL; Basophil% 0.1 % (0-1); Eosinophil# 0.05 X10^3/uL; Eosinophils% 0.3 % (0-5); Hematocrit 24.3 % (40-54); Hemoglobin 7.8 g/dL (13.0-16.5); Lymphocyte # 0.88 X10^3/ul (0.83-4.51); Lymphocyte % 4.5 % (19-41); Mean Corp Hgb Conc 32.1 g/dL (32-36); Mean Corpuscular Hgb 29.8 pg (27.0-32.0); Mean Corpuscular Volume 92.7 fL (80-94); Mean Platelet Vol. 9.2 fl (6.2-12.0); Monocyte# 1.35 X10^3/uL; Monocyte% 6.8 % (0-10); NRBC Flagged by Analyzer 0 % (0-5); Neutrophil # 17.27 X10^3/uL (2.7-7.7); Neutrophil % 87.5 % (47-70); Platelet Count 269 K/mm3 (150-450); RBC Distribution Width SD 44.3 fl (35.1-43.9); Red Blood Count 2.62 M/mm3 (4.6-6.2); White Blood Count 19.7 K/mm3 (4.4-11.0)
[2023-08-23 04:30] LABS: International Normalized Ratio 1.3; Prothrombin Time (Protime)PT. 15.9 SECONDS (11.7-14.9)
[2023-08-23 04:31] LABS: Partial Thromboplast Time 37.4 Seconds (24.1-36.2)
[2023-08-23 04:39] LABS: Anion Gap 6 (5-15); BUN 37 mg/dL (7-18); BUN/Creat Ratio 39.6 RATIO (10-20); Calcium,Total 8.2 mg/dL (8.5-10.1); Chloride 98 mmol/L (98-107); Creatinine, Serum 0.94 mg/dL (0.70-1.30); EST Glomerular Filtration Rate 83 mL/min (>60); Est Glom Filt Rate - Afr Amer 100 mL/min (>60); Estimated Creatinine Clearance 36.46 ml/min; Glucose 94 mg/dL (74-106); Potassium 3.7 mmol/L (3.5-5.1); Sodium Level 133 mmol/L (136-145)
[2023-08-23] MEDS: Piperacil/Tazobactam 3.375 GM in 0.9% Normal Saline (50mL MB+) 50 ML IV ×2 (05:11→14:45)
[2023-08-23] MEDS: Ipratropium/Albuterol Sulfate 3 ML AMPUL.NEB INHALATION ×3 (07:15→19:55)
[2023-08-23] MEDS: Budesonide Respules 0.5 MG/2 ML AMPUL.NEB. INHALATION ×2 (07:15→19:55)
[2023-08-23] MEDS: predniSONE 5 MG Tablet 2.5 MG PO (08:35)
[2023-08-23] MEDS: Aspirin E.C. 81 MG Tablet PO (08:35)
--- NOTE | 2023-08-23 09:09 | PN.HOSP_ITS ---
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 (08/20/23) Difficulty in walking, not elsewhere classified (08/20/23) Other malaise (08/20/23) Severe sepsis without septic shock (08/20/23) Subjective Subjective Patient is scheduled to undergo wound debridement Objective Data Objective Data Vital Signs: Vital Signs Temp Pulse Resp BP Pulse Ox O2 Del Method O2 Flow Rate 97.0 F L 104 H 20 H 119/81 H 98 Nasal Cannula 6 08/23/23 05:15 08/23/23 07:16 08/23/23 07:16 08/23/23 05:15 08/23/23 07:16 08/23/23 07:16 08/23/23 07:16 Oxygen Flow Rate (L/min) 6 Oxygen Delivery Method Nasal Cannula Weight: 39.8 kg Body Mass Index (BMI) 15.0 Intake & Output: Intake and Output for Last 24 Hours 08/21/23 08/22/23 08/23/23 23:59 23:59 23:59 Intake Total 860 / 860 390 / 390 250 / 250 Output Total 800 / 800 1300 / 1300 250 / 250 Balance 60 / 60 -910 / -910 0 / 0 Medical Nutrition Assessment Dietitian: Malnutrition Criteria Met Start: 08/21/23 16:56 Freq: Status: Active Protocol: Document 08/21/23 16:56 RMA (Rec: 08/21/23 16:56 RMA [id number]) Nutrition Malnutrition Evidence of Malnutrition Exists Yes Malnutrition (severe): Chronic Evidenced By Suboptimal Energy Intake ( Severe),Weight Loss (Severe), Physical Changes (Severe) Clinical Problem Chronic Disease or Condition Related Malnutrition Etiology Severe protein-calorie malnutrition in the context of chronic disease and debility related to inadequate oral/ energy intake Signs/Symptoms as evidenced by BMI 15.1, ~10% weight loss x 6 months, predicted PO meeting less than 50% estimated nutrition needs and severe muscle wasting and fat depletion in the clavicle , orbital, temporal regions and arms/legs. Status Active Problem Recommendation Dietitian Recommendations/Changes Continue liberalized regular diet as tolerated. Will add ensure compact w/ breakfast. Will add Thanh BID w/ lunch and dinner. Will add 120mL ensure plus HP 4 times per day w/ medpass. May need to consider enteral nutrition support to replete energy/protein as suspect PO will likely be inadequate as established. Lab / Micro Data 08/23/23 04:03 08/23/23 04:03 Labs: Laboratory Results - last 24 hr 08/21/23 09:00: S.aureus Protein A PCR POSITIVE H, MRSA (PCR) POSITIVE H 08/22/23 07:55: Differential Comment COMMENT, Diff Path Review May foll, Sodium 132 L, Potassium 3.8, Chloride 97 L, Carbon Dioxide 28.0, Anion Gap 7, BUN 32 H, Creatinine 1.05, Estim Creat Clear Calc 32.64, Est GFR (MDRD) Af Amer 88, Est GFR (MDRD) Non-Af 73, BUN/Creatinine Ratio 30.5 H, Glucose 101, Calcium 8.8, Phosphorus 3.1, Magnesium 2.3 08/22/23 21:09: Vancomycin Trough 8.3 08/23/23 04:03: WBC 19.7 H, RBC 2.62 L, Hgb 7.8 L, Hct 24.3 L, MCV 92.7, MCH 2 9.8, MCHC 32.1, RDW Std Deviation 44.3 H, RDW Coeff of Jaime 13.0, Plt Count 269, MPV 9.2, Immature Gran % (Auto) 0.800, Neut % (Auto) 87.5 H, Lymph % (Auto) 4.5 L, Armstrong % (Auto) 6.8, Eos % (Auto) 0.3, Baso % (Auto) 0.1, Absolute Neuts (auto) 17.3 H, Absolute Lymphs (auto) 0.88, Nucleated RBC % 0, PT 15.9 H, INR 1.3, APTT 37.4 H, Sodium 133 L, Potassium 3.7, Chloride 98, Carbon Dioxide 29.0, Anion Gap 6, BUN 37 H, Creatinine 0.94, Estim Creat Clear Calc 36.46, Est GFR (MDRD) Af Amer 100, Est GFR (MDRD) Non-Af 83, BUN/Creatinine Ratio 39.6 H, Glucose 94, Calcium 8.2 L, Blood Type A NEGATIVE, Antibody Screen NEGATIVE Micro: Microbiology 08/21/23 09:00 Wound - Ankle Gram Stain - Final 08/21/23 09:00 Wound - Ankle Wound Culture - Final Proteus mirabilis Meth. resistant Staph. aureus 08/20/23 22:11 Blood Culture (Wb) - Anticubital Right Blood Culture - Preliminary No growth in 48 hours. 08/20/23 22:06 Blood Culture (Wb) - Left Forearm Blood Culture - Preliminary No growth in 48 hours. 08/20/23 18:38 Blood Culture (Wb) - Right Forearm Blood Culture - Preliminary No growth in 48 hours. 08/20/23 18:30 Blood Culture (Wb) - Anticubital Left Blood Culture - Preliminary No growth in 48 hours. Radiography Diagnostic Testing: Radiology Impression Abdomen/Pelvis CTA 08/22/23 12:52 IMPRESSION: Multiple findings as discussed above. Electronically Signed: Geo Medel MD at 14:50 EST , Physical Exam Narrative GENERAL: cooperative but frail looking HEENT: Atraumatic; normocephalic EYES; Anicteric, Normal Conjunctiva NECK; supple, normal thyroid, RESPIRATORY: Diminished to auscultation CARDIOVASCULAR: Regular S1 S2, GI: soft, normoactive bowel sounds, : No Renal angle tenderness; EXTREMITIES: No edema, no clubbing, MUSCULOSKELETAL: no muscle wasting NEURO: Awake; no lateralizing signs. SKIN: No Rash PSYCH; Flat affect Assessment & Plan Assessment/Plan (1) Cellulitis of right ankle: PLAN: Plan Patient is a 77-year-old gentleman resident and attending care facility was brought to the emergency department with right ankle cellulitis without ulceration 1. Sepsis ruled out (criteria not met) 2. Right ankle cellulitis with ulceration with suspected underlying os teomyelitis ? Patient admitted to regular nursing floor. Imaging studies obtained on admission did show Suspected subcutaneous gas at the lateral malleolus concerning for necrotizing infection. No definitive evidence of osteomyelitis. Patient started on vancomycin and Zosyn. Consult placed to Dr. Núñez with podiatry. MRI ordered for subsequent evaluation regarding suspected osteomyelitis ? 08/22/2023; Patient seen, MRI obtained the day prior on admission demonstrated No osteomyelitis, discrete fluid collection, or drainable abscess. Patient was also seen in consultation by ID notes and recommendations review cultures were sent results pending ? 08/23/2023; patient scheduled to undergo wound debridement 3. Acute metabolic encephalopathy ?Secondary to underlying infection 4. 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 Status post chemotherapy. Patient was deemed not a candidate for radiation therapy. Currently being monitored with observation and surveillance for recurrence as outpatient by his oncologist Dr. Puentes 5. Chronic hypoxic respiratory failure ? Secondary to end-stage COPD patient is on 8 to 10 L oxygen continuously at home 6. Hypertension - Blood pressure controlled, home medications continued with dose adjustment as needed 7. Dyslipidemia -Patient is on statin therapy, continued at home dose 8. Coronary artery disease ? With previous history of non-STEMI with subsequent stent placement patient is on guideline directed medical therapy 9. 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 Physical deconditioning - Requested for PT OT eval and certified social workers in health care to assist with discharge planning 11. . Severe protein-calorie malnutrition ? In the context of chronic disease and debility related to inadequate oral/energy intake as evidenced by BMI 15.1, ~10% weight loss x 6 months, predicted PO meeting less than 50% estimated nutrition needs and severe muscle wasting and fat depletion in the clavicle, orbital, temporal regions and arms/legs. Patient was seen in consultation by dietitian notes and recommendations reviewed 12. DVT prophylaxis - On enoxaparin Time spent in the patient's overall evaluation,decision-making process, review of diagnostic data, adjustment of management, discussion with other providers, nursing nursing and ancillary staff involved in patient's care documentation, 40 Minutes Charges/Coding Visit Charges Inpatient E&M: 80099 Subs Hosp L2
--- NOTE | 2023-08-23 10:18 | CASEMGMT ---
TWILA sent updates to [facility] via [employer]. 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
[2023-08-23] MEDS: Bupivacaine 0.25% 30 ML Vial (13:13)
[2023-08-23] MEDS: Lidocaine 1%/Epi 1:200 (30ml) 30 ML AMPUL (13:13)
[2023-08-23] MEDS: Vancomycin IV 1,000 MG/20 ML Vial 1000 MG OPERA.SITE (13:33)
--- NOTE | 2023-08-23 14:11 | PCM.OPRPT ---
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 Pressure ulceration to the level of bone lateral malleolus right ankle 2. Cellulitis right lower extremity 3. Multilevel severe atherosclerotic disease Post-Operative Diagnosis: 1. Pressure ulceration to the level of bone lateral malleolus right ankle 2. Cellulitis right lower extremity 3. Multilevel severe atherosclerotic disease Surgery/Procedure Performed:: 1. Wound debridement of necrotic tissue to the level of bone right lateral ankle 2. Application of advanced wound care product, Axiofill right ankle Description of Surgical Findings:: See operative notes for findings Surgeon: Emanuel Núñez bricklayer sewer: None Type of Anesthesia: Local (10 cc one-to-one mixture 1% lidocaine plain 0.5% Marcaine plain; popliteal block right lower extremity) Specimen's removed: None Drains: None Estimated Blood Loss (mL): < 1 mL Description of Procedure: HPI/indication: Patient is a 77-year-old male who presented to [facility] by way of SNF for pressure ulceration to the right lateral ankle with cellulitis of the right lower extremity late evening 08/20/2023. Upon evaluation the patient it is noted that he has lymphangitic streaking to the knee with erythema about the lateral ankle and right foot with significant pressure ulceration overlying the lateral malleolus with necrotic tissue and exposed bone. He also demonstrates decreased temperature to the lower extremities with nonpalpable pedal pulses and sluggish capillary fill time to the digits bilateral. Did continue IV antibiotics with improvement of cellulitis and did undergo LEAS of bilateral lower extremities which did demonstrate multilevel atherosclerotic disease. He was seen by vascular surgery and discussed that his multilevel atherosclerotic disease is not amendable to endovascular revascularization and with overall frail health including end-stage COPD he is a very poor candidate for open surgical revascularization. Based on his CTA the atherosclerosis is such that it is unlikely he would heal a BKA or even an AKA per vascular surgery. I discussed with family performing a local cleanup of the tissue and attempting to advance stem cell product to aid in healing but ultimately discussed due to poor blood flow and end-stage COPD consideration should be given to palliative care/hospice. I discussed with patient and family the surgical wound debridement procedure with application of advanced stem cell product to be performed in the OR 08/23/23 under local anesthetic. Discussed risks and complications of the procedure. Discussed risks include but are not limited to the following: Pain, continued pain, infection, gangrene, delayed healing/inability to heal, continued necrosis of tissue secondary to severe atherosclerosis, blood clot, loss of function, loss of limb, loss of life. Patient's daughter voices understanding of this. Patient's daughter would like to proceed with procedure to clear necrotic tissue and attempts to aid in clearing infection to improve quality of life. Patient's daughter did sign consent freely on behalf of her father. Diagnostic data was reviewed prior to entering the OR. Operative limb was signed prior to entering the OR. Procedure: Patient was brought into the operating room and placed on the table in the supine position. He was secured to the table with safety belt. [place] bump was placed under right knee and calf. A local anesthetic block was then performed about the sural nerve and lateral leg consisting of 10 cc one-to-one mixture of 1% lidocaine plain and 0.5% Marcaine plain. No tourniquet was utilized secondary to severe atherosclerotic disease and infection of the lower extremity. The foot was then scrubbed, prepped, and draped in usual aseptic manner. At this time attention was directed to the lateral aspect of the right lower extremity overlying the lateral malleolus where a pressure ulceration was noted extending down to the level of bone with necrosis of overlying soft tissue and localized erythema. Next, a sharp excisional debridement was performed to the right lateral ankle extending down to the level of bone utilizing a #15 blade, rongeur, and curette. 100% of ulceration was debrided removing all necrotic tissue, fibrous tissue, devitalized subcutaneous tissue, biofilm, slough. During debridement there was no bleeding tissue noted. Care was taken to only remove necessary necrotic tissue as patient has severe multilevel atherosclerotic disease posing significant complication to healing. Site was then copiously irrigated with 3000 cc pulse lavage. Following irrigation periosteal tissue and lateral ankle ligaments were noted to appear healthy and intact. All remaining tissue appeared healthy and viable with no necrotic tissue remaining, however did demonstrate inability to bleed. 1 g of vancomycin powder was then placed throughout the tissue postdebridement. Next, an advanced wound care product, Axiofill 500mg was applied to the ulcerative site and dressed with Adaptic and anchored with Steri-Strips. The site was then dressed with 4 x 4 gauze, ABD, Kerlix x 2, and 4 inch Eric wrap rolled onto the right foot. Patient tolerated the procedure and local anesthetic well and was transported to same-day surgery. Vascular status remains unchanged post procedure. Offloading waffle boot was applied postprocedure with recommendation to continue offloading of the lateral ankle. He will return to progressive care unit and will remain nonweightbearing to the right lower extremity with continued offloading of the right lower extremity/lateral ankle with waffle boot. Recommending dressing remain intact with advance stem cell product/graft in place for next week. May reinforce dressing for strikethrough and change outer dressings as needed. I will continue to follow while in house and he will continue to receive IV antibiotics. Grafts/Implants Used: Axiofill 500mg Complications None Admit VTE Documentation VTE Present on Admission: No VTE Mechan Device Prophylaxis: SCD's VTE Pharm Prophylaxis ordered?: No Reason prophylaxis not ordered:: Procedure Not Indicated
--- NOTE | 2023-08-23 14:12 | NURSING ---
update given to nurse [facility]
[2023-08-23] MEDS: Ensure Plus High Protein 120 ML LIQUID PO ×2 (14:46→17:33)
--- NOTE | 2023-08-23 18:49 | PN_ITS ---
Subjective Subjective Patient seen this afternoon prior to procedure with patient's daughter present. Patient's daughter understands current condition with likely inability to heal current wound. Patient's daughter wishes to proceed forward with the surgical intervention of wound debridement of the right ankle with application of advanc ed stem cell product and attempts to clear current infected tissue to improve his condition and current quality of life. Objective Data Objective Data Vital Signs: Vital Signs Temp Pulse Resp BP Pulse Ox O2 Del Method O2 Flow Rate 97 F L 99 18 92/69 95 High Flow 8 08/23/23 18:30 08/23/23 18:30 08/23/23 18:30 08/23/23 18:30 08/23/23 18:30 08/23/23 18:30 08/23/23 18:30 Oxygen Flow Rate (L/min) 8 Oxygen Delivery Method High Flow Weight: 39.8 kg Body Mass Index (BMI) 15.0 Intake & Output: Intake and Output for Last 24 Hours 08/21/23 08/22/23 08/23/23 23:59 23:59 23:59 Intake Total 860 / 860 390 / 390 540 / 540 Output Total 800 / 800 1300 / 1300 550 / 550 Balance 60 / 60 -910 / -910 -10 / -10 Medical Nutrition Assessment Dietitian: Malnutrition Criteria Met Start: 08/21/23 16:56 Freq: Status: Active Protocol: Document 08/21/23 16:56 RMA (Rec: 08/21/23 16:56 RMA [id number]) Nutrition Malnutrition Evidence of Malnutrition Exists Yes Malnutrition (severe): Chronic Evidenced By Suboptimal Energy Intake ( Severe),Weight Loss (Severe), Physical Changes (Severe) Clinical Problem Chronic Disease or Condition Related Malnutrition Etiology Severe protein-calorie malnutrition in the context of chronic disease and debility related to inadequate oral/ energy intake Signs/Symptoms as evidenced by BMI 15.1, ~10% weight loss x 6 months, predicted PO meeting less than 50% estimated nutrition needs and severe muscle wasting and fat depletion in the clavicle , orbital, temporal regions and arms/legs. Status Active Problem Recommendation Dietitian Recommendations/Changes Continue liberalized regular diet as tolerated. Will add ensure compact w/ breakfast. Will add Thanh BID w/ lunch and dinner. Will add 120mL ensure plus HP 4 times per day w/ medpass. May need to consider enteral nutrition support to replete energy/protein as suspect PO will likely be inadequate as established. Lab / Micro Data 08/23/23 04:03 08/23/23 04:03 Labs: Laboratory Results - last 24 hr 08/22/23 21:09: Vancomycin Trough 8.3 08/23/23 04:03: WBC 19.7 H, RBC 2.62 L, Hgb 7.8 L, Hct 24.3 L, MCV 92.7, MCH 29.8, MCHC 32.1, RDW Std Deviation 44.3 H, RDW Coeff of Jaime 13.0, Plt Count 269, MPV 9.2, Immature Gran % (Auto) 0.800, Neut % (Auto) 87.5 H, Lymph % (Auto) 4.5 L, [place] % (Auto) 6.8, Eos % (Auto) 0.3, Baso % (Auto) 0.1, Absolute Neuts (auto) 17.3 H, Absolute Lymphs (auto) 0.88, Nucleated RBC % 0, PT 15.9 H, INR 1.3, APTT 37.4 H, Sodium 133 L, Potassium 3.7, Chloride 98, Carbon Dioxide 29.0, Anion Gap 6, BUN 37 H, Creatinine 0.94, Estim Creat Clear Calc 36.46, Est GFR (MDRD) Af Amer 100, Est GFR (MDRD) Non-Af 83, BUN/Creatinine Ratio 39.6 H, Glucose 94, Calcium 8.2 L, Blood Type A NEGATIVE, Antibody Screen NEGATIVE Micro: Microbiology 08/21/23 09:00 Wound - Ankle Gram Stain - Final 08/21/23 09:00 Wound - Ankle Wound Culture - Final Proteus mirabilis Meth. resistant Staph. aureus 08/20/23 22:11 Blood Culture (Wb) - Anticubital Right Blood Culture - Preliminary No growth in 48 hours. 08/20/23 22:06 Blood Culture (Wb) - Left Forearm Blood Culture - Preliminary No growth in 48 hours. 08/20/23 18:38 Blood Culture (Wb) - Right Forearm Blood Culture - Preliminary No growth in 48 hours. 08/20/23 18:30 Blood Culture (Wb) - Anticubital Left Blood Culture - Preliminary No growth in 48 hours. Physical Exam Const alert and no apparent distress Constitutional Narrative: Patient appears nontoxic, but unkempt and poorly nourished. General Appearance: cooperative HEENT normocephalic Eyes General Eye: normal appearance of both eyes Neck General: normal visual inspection Lymph Lymphatic: no lymphedema noted Resp normal respiratory effort Resp Narrative: On 6 L oxygen. Cardio regular rate and regular rhythm Extremity no calf tenderness and no pedal edema Extremity Narrative: DP and PT pulses nonpalpable bilaterally. Capillary fill sluggish and delayed t o digits bilateral. Overall legs are very thin with decreased muscle bulk. Right lower extremity: Skin is thin with trophic changes consistent with microvascular disease. There is an ulceration noted to the lateral aspect of the right ankle overlying the fibula/lateral malleolus with exposed palpable bone and surrounding necrotic tissue. Ulceration measures 3 cm x 2.5 cm. Wound margins demonstrate subdermal hemorrhaging consistent with pressure ulceration of the lateral malleolus with surrounding erythema and lymphangitic streaking proximally to the knee. No purulent drainage, no malodor, no palpable fluctuance/bogginess. There is decreased muscle bulk to the lower extremity. Left lower extremity: Skin is thin with trophic changes consistent with microvascular disease. There is small callus/preulcerative lesion to the medial aspect of the first metatarsal head with subsequent HAV deformity. No signs of infection. There is decreased muscle bulk of the lower extremity. 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 This was painted with Betadine and dressed with dry sterile dressing. Recommend continued monitoring and offloading with waffle boot. Infection Right lower extremity: There is decreased muscle bulk to the lower extremity. Skin is thin with trophic changes consistent with microvascular disease. There is an ulceration noted to the lateral aspect of the right ankle overlying the fibula/lateral malleolus with exposed palpable bone and surrounding necrotic tissue. Ulceration measures 3 cm x 2.5 cm. Wound margins demonstrate subdermal hemorrhaging consistent with pressure ulceration of the lateral malleolus with surrounding erythema and lymphangitic streaking proximally to the knee. No purulent drainage, no malodor, no palpable fluctuance/bogginess. WBC currently 19.7, improved from 26.8, ESR 60, CRP > 190, lactic acid 1.0 Wound cultures obtained, staph aureus and Proteus mirabiilis. Staph aureus protein A PCR positive, MRSA PCR positive Currently on IV Vanco/Zosyn Radiographs right lower extremity 08/20/2023 demonstrate suspected subcutaneous gas at the lateral malleolus concerning for a necrotizing infection. No definitive evidence of osteomyelitis. I have reviewed radiographs I do agree with the subcutaneous air secondary to ulceration with exposed bone at the lateral malleolus, he also is noted to have previous tibial fibular fracture of the right lower extremity. MRI performed 08/21/2023 demonstrating old healed fracture deformities of the distal tibia and fibula. Skin ulceration overlying the lateral malleolus, mild to moderate subcutaneous soft tissue edema along the medial aspect of the ankle as well as extending along the dorsal lateral aspect of the foot. There is no discrete fluid collection or drainable abscess. There is a 1.0 x 1.6 cm osteochondral lesion along the medial talar dome and a 1.3 x 1.1 cm osteochondral lesion along the lateral talar dome. No evidence of osteomyelitis . Venous studies last performed 07/23/2023 demonstrating no DVT. Nonpalpable pedal pulses bilateral with delayed capillary fill time. LEAS performed 08/22/2023 demonstrating multilevel severe atherosclerotic disease. He was seen by vascular surgery and discussed that his multilevel atherosclerotic disease is not amendable to endovascular revascularization with overall frail health including end-stage COPD he is a poor candidate for open surgical revascularization. Based on his CTA the atherosclerosis is such that it is unlikely he would heal a BKA or even an AKA per vascular surgery. He was taken to the OR for wound debridement 08/23/2023. It is noted that minimal to no bleeding was noted during the debridement of the necrotic tissue. Debridement was performed down to the level of bone during procedure removing all necrotic tissue up to the level of healthy tissue. Care was taken to only limit debriding up to the point of healthy tissue secondary to his severe atherosclerotic disease. 1 g of vancomycin powder was placed about the wound and advanced stem cell product, Axiofill 500mg was applied to wound. Site was then dressed with Adaptic, Steri-Strips, 4 x 4 gauze, ABD, Kerlix x 2, 4 inch Eric wrap rolled onto the right foot. Waffle boot was reapplied for continued offloading of the lateral malleolus. Dressings: Leave advanced wound care product in place with Steri-Strips and Adaptic for the next week. May change outer dressing as needed. May also reinforce strikethrough as needed. He is to remain nonweightbearing to the right lower extremity. With continued wearing of waffle boot and offloading at all times of his lateral right ankle. Medicine team currently following for medical management, they are greatly appreciated. Infectious disease consulted for antibiotic management, their assistance is appreciated. Vascular surgery evaluated patient and due to severe multi level atherosclerotic disease and end-stage COPD patient is not a candidate to endovascular revascularization. Recommendation is palliative care/hospice. Wound nurse consulted for assistance with dressing changes, she is appreciated. Currently on enoxaparin for DVT prophylaxis Patient does appear to be frail with poor nutritional status, end-stage COPD and severe multilevel atherosclerotic disease that complicates healing. Podiatry does agree with vascular recommendation of palliative care/hospice. Podiatry will continue to follow while in-house. Jr. Jelani Jones.P.M. [facility] [phone]
[2023-08-23] MEDS: Vancomycin IV 1,000 MG/200 ML BAG 200 MG IV (21:42)
[2023-08-24] VITALS (12 sets, daily range): BP systolic 90–114; BP diastolic 47–80; PULSE 87–100; RESP 18–20; TEMP 36.1–36.6; O2SAT 93–100
[2023-08-24] MEDS: Piperacil/Tazobactam 3.375 GM in 0.9% Normal Saline (50mL MB+) 50 ML IV ×4 (00:24→22:15)
[2023-08-24 06:32] LABS: Absolute Lymphocyte Count 0.68 X10^3/uL (0.83-4.51); Absolute Neutrophil Count 11.9 X10^3/uL (2.0-7.7); Basophil# 0.02 X10^3/uL; Basophil% 0.1 % (0-1); Eosinophil# 0.03 X10^3/uL; Eosinophils% 0.2 % (0-5); Hematocrit 24.8 % (40-54); Hemoglobin 7.9 g/dL (13.0-16.5); Lymphocyte # 0.68 X10^3/ul (0.83-4.51); Lymphocyte % 4.9 % (19-41); Mean Corp Hgb Conc 31.9 g/dL (32-36); Mean Corpuscular Hgb 29.9 pg (27.0-32.0); Mean Corpuscular Volume 93.9 fL (80-94); Mean Platelet Vol. 9.6 fl (6.2-12.0); Monocyte% 7.9 % (0-10); NRBC Flagged by Analyzer 0 % (0-5); Neutrophil # 11.92 X10^3/uL (2.7-7.7); Neutrophil % 85.6 % (47-70); Platelet Count 299 K/mm3 (150-450); RBC Distribution Width CV 13.1 % (11.6-14.6); Red Blood Count 2.64 M/mm3 (4.6-6.2); White Blood Count 13.9 K/mm3 (4.4-11.0)
[2023-08-24 07:00] LABS: Anion Gap 13 (5-15); BUN 32 mg/dL (7-18); BUN/Creat Ratio 39.9 RATIO (10-20); Calcium,Total 7.5 mg/dL (8.5-10.1); Chloride 100 mmol/L (98-107); EST Glomerular Filtration Rate 99 mL/min (>60); Est Glom Filt Rate - Afr Amer 120 mL/min (>60); Estimated Creatinine Clearance 42.84 ml/min; Glucose 68 mg/dL (74-106); Potassium 3.8 mmol/L (3.5-5.1); Sodium Level 135 mmol/L (136-145)
[2023-08-24] MEDS: Budesonide Respules 0.5 MG/2 ML AMPUL.NEB. INHALATION (07:05)
[2023-08-24] MEDS: Ipratropium/Albuterol Sulfate 3 ML AMPUL.NEB INHALATION ×3 (07:05→15:21)
[2023-08-24] MEDS: Enoxaparin 40 MG/0.4 ML Syringe SC (08:45)
[2023-08-24] MEDS: Ensure Plus High Protein 120 ML LIQUID PO ×4 (08:45→22:08)
[2023-08-24] MEDS: predniSONE 5 MG Tablet 2.5 MG PO (08:45)
[2023-08-24] MEDS: Aspirin E.C. 81 MG Tablet PO (08:45)
--- NOTE | 2023-08-24 09:10 | PN.HOSP_ITS ---
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 Wound cultures so far positive for MRSA and Proteus Objective Data Objective Data Vital Signs: Vital Signs Temp Pulse Resp BP Pulse Ox O2 Del Method O2 Flow Rate 97 F L 97 18 90/47 L 97 High Flow 7 08/24/23 08:41 08/24/23 08:41 08/24/23 08:41 08/24/23 08:41 08/24/23 08:41 08/24/23 08:41 08/24/23 08:41 Oxygen Flow Rate (L/min) 7 Oxygen Delivery Method High Flow Weight: 39.8 kg Body Mass Index (BMI) 15.0 Intake & Output: Intake and Output for Last 24 Hours 08/22/23 08/23/23 08/24/23 23:59 23:59 23:59 Intake Total 390 / 390 590 / 590 250 / 250 Output Total 1300 / 1300 550 / 750 450 / 450 Balance -910 / -910 40 / -160 -200 / -200 Medical Nutrition Assessment Dietitian: Malnutrition Criteria Met Start: 08/21/23 16:56 Freq: Status: Active Protocol: Document 08/21/23 16:56 RMA (Rec: 08/21/23 16:56 RMA [id number]) Nutrition Malnutrition Evidence of Malnutrition Exists Yes Malnutrition (severe): Chronic Evidenced By Suboptimal Energy Intake ( Severe),Weight Loss (Severe), Physical Changes (Severe) Clinical Problem Chronic Disease or Condition Related Malnutrition Etiology Severe protein-calorie malnutrition in the context of chronic disease and debility related to inadequate oral/ energy intake Signs/Symptoms as evidenced by BMI 15.1, ~10% weight loss x 6 months, predicted PO meeting less than 50% estimated nutrition needs and severe muscle wasting and fat depletion in the clavicle , orbital, temporal regions and arms/legs. Status Active Problem Recommendation Dietitian Recommendations/Changes Continue liberalized regular diet as tolerated. Will add ensure compact w/ breakfast. Will add Thanh BID w/ lunch and dinner. Will add 120mL ensure plus HP 4 times per day w/ medpass. May need to consider enteral nutrition support to replete energy/protein as suspect PO will likely be inadequate as established. Lab / Micro Data 08/24/23 05:25 08/24/23 05:25 Labs: Laboratory Results - last 24 hr 08/24/23 05:25: WBC 13.9 H, RBC 2.64 L, Hgb 7.9 L, Hct 24.8 L, MCV 93.9, MCH 29.9, MCHC 31.9 L, RDW Std Deviation 45.0 H, RDW Coeff of Jaime 13.1, Plt Count 299, MPV 9.6, Immature Gran % (Auto) 1.300 H, Neut % (Auto) 85.6 H, Lymph % (Auto) 4.9 L, [place] % (Auto) 7.9, Eos % (Auto) 0.2, Baso % (Auto) 0.1, Absolute Neuts (auto) 11.9 H, Absolute Lymphs (auto) 0.68 L, Nucleated RBC % 0, Sodium 135 L, Potassium 3.8, Chloride 100, Carbon Dioxide 22.0, Anion Gap 13, BUN 32 H, Creatinine 0.80, Estim Creat Clear Calc 42.84, Est GFR (MDRD) Af Amer 120, Est GFR (MDRD) Non-Af 99, BUN/Creatinine Ratio 39.9 H, Glucose 68 L, Calcium 7.5 L Micro: Microbiology 08/21/23 09:00 Wound - Ankle Gram Stain - Final 08/21/23 09:00 Wound - Ankle Wound Culture - Final Proteus mirabilis Meth. resistant Staph. aureus 08/20/23 22:11 Blood Culture (Wb) - Anticubital Right Blood Culture - Preliminary No growth in 48 hours. 08/20/23 22:06 Blood Culture (Wb) - Left Forearm Blood Culture - Preliminary No growth in 48 hours. 08/20/23 18:38 Blood Culture (Wb) - Right Forearm Blood Culture - Preliminary No growth in 48 hours. 08/20/23 18:30 Blood Culture (Wb) - Anticubital Left Blood Culture - Preliminary No growth in 48 hours. Physical Exam Narrative GENERAL: cooperative but frail looking HEENT: Atraumatic; normocephalic EYES; Anicteric, Normal Conjunctiva NECK; supple, normal thyroid, RESPIRATORY: Diminished to auscultation CARDIOVASCULAR: Regular S1 S2, GI: soft, normoactive bowel sounds, : No Renal angle tenderness; EXTREMITIES: No edema, no clubbing, MUSCULOSKELETAL: no muscle wasting NEURO: Awake; no lateralizing signs. SKIN: No Rash PSYCH; Flat affect Assessment & Plan Assessment/Plan (1) Cellulitis of right ankle: PLAN: Plan Patient is a 77-year-old gentleman resident and attending care facility was brought to the emergency department with right ankle cellulitis without ulceration 1. Sepsis ruled out (criteria not met) 2. Right ankle cellulitis with ulceration with previous and MRSA ? Patient admitted to regular nursing floor. Imaging studies obtained on admission did show Suspected subcutaneous gas at the lateral malleolus concerning for necrotizing infection. No definitive evidence of osteomyelitis. Patient started on vancomycin and Zosyn. Consult placed to Dr. Núñez with podiatry. MRI ordered for subsequent evaluation regarding suspected osteomyelitis ? 08/22/2023; Patient seen, MRI obtained the day prior on admission demonstrated No osteomyelitis, discrete fluid collection, or drainable abscess. Patient was also seen in consultation by ID notes and recommendations review cultures were sent results pending. Osteomyelitis subsequently ruled out ? 08/23/2023; patient scheduled to undergo wound debridement ? 08/24/2023;Patient underwent wound debridement of necrotic tissue to the level of bone right lateral ankle on 08/23/2023. Wound cultures so far positive for MRSA and Proteus. Consult placed to ID.. Patient remains on Zosyn and vancomycin 3. Acute metabolic encephalopathy ?Secondary to underlying infection 4. 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 Status post chemotherapy. Patient was deemed not a candidate for radiation therapy. Currently being monitored with observation and surveillance for recurrence as outpatient by his oncologist Dr. Puentes 5. Chronic hypoxic respiratory failure ? Secondary to end-stage COPD patient is on 8 to 10 L oxygen continuously at home 6. Hypertension - Blood pressure controlled, home medications continued with dose adjustment as needed 7. Dyslipidemia -Patient is on statin therapy, continued at home dose 8. Coronary artery disease ? With previous history of non-STEMI with subsequent stent placement patient is on guideline directed medical therapy 9. 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 Physical deconditioning - Requested for PT OT eval and social psychologist to assist with discharge planning 11. . Severe protein-calorie malnutrition ? In the context of chronic disease and debility related to inadequate oral/energy intake as evidenced by BMI 15.1, ~10% weight loss x 6 months, predicted PO meeting less than 50% estimated nutrition needs and severe muscle wasting and fat depletion in the clavicle, orbital, temporal regions and arms/legs. Patient was seen in consultation by dietitian notes and recommendations reviewed 12. DVT prophylaxis - On enoxaparin Time spent in the patient's overall evaluation,decision-making process, review of diagnostic data, adjustment of management, discussion with other providers, nursing nursing and ancillary staff involved in patient's care documentation, 40 Minutes Charges/Coding Visit Charges Inpatient E&M: 87089 Subs Hosp L2
[2023-08-24 09:11] LABS: Pathologist Review Reviewed
--- NOTE | 2023-08-24 09:34 | CASEMGMT ---
Discharge Planning Updates sent via [facility] to [place]. Eli Trujillo, Discharge Planning Asst.
--- NOTE | 2023-08-24 12:03 | PN_ITS ---
Subjective Subjective Patient seen this afternoon resting with family present. Dressings and graft product are intact to the right foot with offloading boot applied. He denies complaints. Objective Data Objective Data Vital Signs: Vital Signs Temp Pulse Resp BP Pulse Ox O2 Del Method O2 Flow Rate 97 F L 87 18 100/65 98 High Flow 6 08/24/23 10:43 08/24/23 10:43 08/24/23 10:43 08/24/23 10:43 08/24/23 10:43 08/24/23 10:43 08/24/23 10:43 Oxygen Flow Rate (L/min) 6 Oxygen Delivery Method High Flow Weight: 39.8 kg Body Mass Index (BMI) 15.0 Intake & Output: Intake and Output for Last 24 Hours 08/22/23 08/23/23 08/24/23 23:59 23:59 23:59 Intake Total 390 / 390 590 / 590 300 / 300 Output Total 1300 / 1300 550 / 750 450 / 450 Balance -910 / -910 40 / -160 -150 / -150 Medical Nutrition Assessment Dietitian: Malnutrition Criteria Met Start: 08/21/23 16:56 Freq: Status: Active Protocol: Document 08/21/23 16:56 RMA (Rec: 08/21/23 16:56 RMA [id number]) Nutrition Malnutrition Evidence of Malnutrition Exists Yes Malnutrition (severe): Chronic Evidenced By Suboptimal Energy Intake ( Severe),Weight Loss (Severe), Physical Changes (Severe) Clinical Problem Chronic Disease or Condition Related Malnutrition Etiology Severe protein-calorie malnutrition in the context of chronic disease and debility related to inadequate oral/ energy intake Signs/Symptoms as evidenced by BMI 15.1, ~10% weight loss x 6 months, predicted PO meeting less than 50% estimated nutrition needs and severe muscle wasting and fat depletion in the clavicle , orbital, temporal regions and arms/legs. Status Active Problem Recommendation Dietitian Recommendations/Changes Continue liberalized regular diet as tolerated. Will add ensure compact w/ breakfast. Will add Thanh BID w/ lunch and dinner. Will add 120mL ensure plus HP 4 times per day w/ medpass. May need to consider enteral nutrition support to replete energy/protein as suspect PO will likely be inadequate as established. Lab / Micro Data 08/24/23 05:25 08/24/23 05:25 Labs: Laboratory Results - last 24 hr 08/22/23 07:55: Diff Path Review Reviewed 08/24/23 05:25: WBC 13.9 H, RBC 2.64 L, Hgb 7.9 L, Hct 24.8 L, MCV 93.9, MCH 29.9, MCHC 31.9 L, RDW Std Deviation 45.0 H, RDW Coeff of Jaime 13.1, Plt Count 299, MPV 9.6, Immature Gran % (Auto) 1.300 H, Neut % (Auto) 85.6 H, Lymph % (Auto) 4.9 L, [place] % (Auto) 7.9, Eos % (Auto) 0.2, Baso % (Auto) 0.1, Absolute Neuts (auto) 11.9 H, Absolute Lymphs (auto) 0.68 L, Nucleated RBC % 0, Sodium 135 L, Potassium 3.8, Chloride 100, Carbon Dioxide 22.0, Anion Gap 13, BUN 32 H, Creatinine 0.80, Estim Creat Clear Calc 42.84, Est GFR (MDRD) Af Amer 120, Est GFR (MDRD) Non-Af 99, BUN/Creatinine Ratio 39.9 H, Glucose 68 L, Calcium 7.5 L Micro: Microbiology 08/22/23 18:02 Urine Catheter - Catheter Urine Culture - Final Culture exhibits no growth. 08/21/23 09:00 Wound - Ankle Gram Stain - Final 08/21/23 09:00 Wound - Ankle Wound Culture - Final Proteus mirabilis Meth. resistant Staph. aureus 08/20/23 22:11 Blood Culture (Wb) - Anticubital Right Blood Culture - Preliminary No growth in 48 hours. 08/20/23 22:06 Blood Culture (Wb) - Left Forearm Blood Culture - Preliminary No growth in 48 hours. 08/20/23 18:38 Blood Culture (Wb) - Right Forearm Blood Culture - Preliminary No growth in 48 hours. 08/20/23 18:30 Blood Culture (Wb) - Anticubital Left Blood Culture - Preliminary No growth in 48 hours. Physical Exam Const alert and no apparent distress Constitutional Narrative: Patient appears nontoxic, but unkempt and poorly nourished. General Appearance: cooperative HEENT normocephalic Eyes General Eye: normal appearance of both eyes Neck General: normal visual inspection Lymph Lymphatic: no lymphedema noted Resp normal respiratory effort Resp Narrative: On 6 L oxygen. Cardio regular rate and regular rhythm Extremity no calf tenderness and no pedal edema Extremity Narrative: DP and PT pulses nonpalpable bilaterally. Capillary fill sluggish and delayed to digits bilateral. Overall legs are very thin with decreased muscle bulk. Right lower extremity: Skin is thin with trophic changes consistent with microvascular disease. There is an ulceration noted to the lateral aspect of the right ankle overlying the fibula/lateral malleolus with exposed palpable bone and surrounding necrotic tissue. Ulceration measures 3 cm x 2.5 cm. Wound margins demonstrate subdermal hemorrhaging consistent with pressure ulceration o f the lateral malleolus with surrounding erythema and lymphangitic streaking proximally to the knee. No purulent drainage, no malodor, no palpable fluctuance/bogginess. There is decreased muscle bulk to the lower extremity. Postdebridement: All necrotic tissue has been debrided wound measures 7 cm x 6.5 cm x 1 cm. Periosteal tissue, ligaments, and capsular tissues exposed about fibula with remaining healthy tissue and no bleeding noted. Stem cell graft product is in place anchored with Steri-Strips and Adaptic with dry dressing intact. Left lower extremity: Skin is thin with trophic changes consistent with microvascular disease. There is small callus/preulcerative lesion to the medial aspect of the first metatarsal head with subsequent HAV deformity. No signs of infection. There is decreased muscle bulk of the lower extremity. 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 Stem cell graft in place anchored with Adaptic and Steri-Strips with dry sterile dressing and offloading boot. Left lower extremity does demonstrate pre-ulcerative callus medial aspect of the first metatarsal head. This was painted with Betadine and dressed with dry sterile dressing. Recommend continued monitoring and offloading with waffle boot. Infection Right lower extremity: There is decreased muscle bulk to the lower extremity. Skin is thin with trophic changes consistent with microvascular disease. There is an ulceration noted to the lateral aspect of the right ankle overlying the fibula/lateral malleolus with exposed palpable bone and surrounding necrotic tissue. Ulceration measures 3 cm x 2.5 cm. Wound margins demonstrate subdermal hemorrhaging consistent with pressure ulceration of the lateral malleolus with surrounding erythema and lymphangitic streaking proximally to the knee. No purulent drainage, no malodor, no palpable fluctuance/bogginess. WBC currently 13.9 improved from 19.7, ESR 60, CRP > 190, lactic acid 1.0 Wound cultures obtained, staph aureus and Proteus mirabiilis. Staph aureus protein A PCR positive, MRSA PCR positive Currently on IV Vanco/Zosyn Radiographs right lower extremity 08/20/2023 demonstrate suspected subcutaneous gas at the lateral malleolus concerning for a necrotizing infection. No definitive evidence of osteomyelitis. I have reviewed radiographs I do agree with the subcutaneous air secondary to ulceration with exposed bone at the lateral malleolus, he also is noted to have previous tibial fibular fracture of the right lower extremity. MRI performed 08/21/2023 demonstrating old healed fracture deformities of the distal tibia and fibula. Skin ulceration overlying the lateral malleolus, mild to moderate subcutaneous soft tissue edema along the medial aspect of the ankle as well as extending along the dorsal lateral aspect of the foot. There is no discrete fluid collection or drainable abscess. There is a 1.0 x 1.6 cm osteochondral lesion along the medial talar dome and a 1.3 x 1.1 cm osteochondral lesion along the lateral talar dome. No evidence of osteomy elitis. Venous studies last performed 07/23/2023 demonstrating no DVT. Nonpalpable pedal pulses bilateral with delayed capillary fill time. LEAS performed 08/22/2023 demonstrating multilevel severe atherosclerotic disease. He was seen by vascular surgery and discussed that his multilevel atherosclerotic disease is not amendable to endovascular revascularization with overall frail health including end-stage COPD he is a poor candidate for open surgical revascularization. Based on his CTA the atherosclerosis is such that it is unlikely he would heal a BKA or even an AKA per vascular surgery. He was taken to the OR for wound debridement 08/23/2023. It is noted that minimal to no bleeding was noted during the debridement of the necrotic tissue. Debridement was performed down to the level of bone during procedure removing all necrotic tissue up to the level of healthy tissue. Care was taken to only limit debriding up to the point of healthy tissue secondary to his severe atherosclerotic disease. 1 g of vancomycin powder was placed about the wound and advanced stem cell product, Axiofill 500mg was applied to wound. Site was then dressed with Adaptic, Steri-Strips, 4 x 4 gauze, ABD, Kerlix x 2, 4 inch Eric wrap rolled onto the right foot. Waffle boot was reapplied for continued o ffloading of the lateral malleolus. Dressings: Leave advanced wound care product in place with Steri-Strips and Adaptic for the next week. May change outer dressing as needed. May also reinforce strikethrough as needed. He is to remain nonweightbearing to the right lower extremity. With continued wearing of waffle boot and offloading at all times of his lateral right ankle. Medicine team currently following for medical management, they are greatly appreciated. Infectious disease consulted for antibiotic management, their assistance is appreciated. Vascular surgery evaluated patient and due to severe multi level atherosclerotic disease and end-stage COPD patient is not a candidate to endovascular revascularization. Recommendation is palliative care/hospice. Wound nurse consulted for assistance with dressing changes, she is appreciated. Currently on enoxaparin for DVT prophylaxis Patient does appear to be frail with poor nutritional status, end-stage COPD and severe multilevel atherosclerotic disease that complicates healing. Podiatry does agree with vascular recommendation of palliative care/hospice. Podiatry will continue to follow while in-house. Jr. Jelani Jones.P.M. [facility] [place] [phone]
--- NOTE | 2023-08-24 14:49 | PCM.PN.ID ---
ID ID: Route of nutrition/ use of supplements: [] Nutritional Intake: [] IV Site: [] Rey Catheter: [] Patient underwent surgery yesterday for debridement of the right foot and ankle. Podiatry note reviewed over the last 48 to 72 hours. Microbiology data noted on the wound culture growing MRSA and Proteus. Tolerating vancomycin plus Zosyn well. On exam he is comfortable in no acute distress on nasal cannula 2. Abdomen soft nontender right foot dressings are in place. 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 Difficult situation given his severe vascular disease and prognosis regarding the lower limb.
--- NOTE | 2023-08-24 14:49 | CASEMGMT ---
TWILA spoke with patient's daughter Michell per her request. Michell said the surgeon talked with them and recommended patient go Hospice as his wound will never heal. Michell would like patient to go to the inpatient Hospice Unit. TWILA let Michell know how the process works. TWILA explained that a emergency medical service manager will have to evaluate patient to make sure he qualifies for the inpatient unit. TWILA sent physician a message to make sure he is okay with SW making a Hospice referral. Lana RODRIGUEZ
--- NOTE | 2023-08-24 16:42 | CASEMGMT ---
Referral was made to [facility]. Cristina at Hospice let SW know they contacted patient's daughter and she feels sick so they will meet tomorrow. TWILA updated shale planer operator helper. Plan: Patient's daughter to meet with Hospice and possible inpatient Hospice unit. Lana Rivers ADULT LITERACY TEACHER MICHAEL
[2023-08-24] MEDS: Vancomycin Trough/Random Due 1 LAB MC (22:08)
[2023-08-24 22:16] LABS: Vancomycin, Trough Level 16.2 ug/mL (5.0-15.0)
[2023-08-24] MEDS: Vancomycin IV 1,000 MG/200 ML BAG 200 MG IV (23:04)
--- NOTE | 2023-08-24 23:55 | PHA.PHARE_ITS ---
Consult Antibiotic Management Pharmacy has been consulted to manage selected antiobiotic: Vancomycin Type of Intervention Type of Consult: Follow-up Labs Labs: Sodium 135 mmol/L (136-145) L 08/24/23 05:25 Potassium 3.8 mmol/L (3.5-5.1) 08/24/23 05:25 Chloride 100 mmol/L (98-107) 08/24/23 05:25 Carbon Dioxide 22.0 mmol/L (21.0-32.0) 08/24/23 05:25 Anion Gap 13 (5-15) 08/24/23 05:25 BUN 32 mg/dL (7-18) H 08/24/23 05:25 Creatinine 0.80 mg/dL (0.70-1.30) 08/24/23 05:25 Est GFR (MDRD) Af Amer 120 mL/min (>60) 08/24/23 05:25 Est GFR (MDRD) Non-Af 99 mL/min (>60) 08/24/23 05:25 BUN/Creatinine Ratio 39.9 RATIO (10-20) H 08/24/23 05:25 Glucose 68 mg/dL (74-106) L 08/24/23 05:25 Vancomycin Trough 16.2 ug/mL (5.0-15.0) H 08/24/23 21:40 Microbiology Microbiology: Microbiology 08/22/23 18:02 Urine Catheter - Catheter Urine Culture - Final Culture exhibits no growth. 08/21/23 09:00 Wound - Ankle Gram Stain - Final 08/21/23 09:00 Wound - Ankle Wound Culture - Final Proteus mirabilis Meth. resistant Staph. aureus 08/20/23 22:11 Blood Culture (Wb) - Anticubital Right Blood Culture - Prel iminary No growth in 48 hours. 08/20/23 22:06 Blood Culture (Wb) - Left Forearm Blood Culture - Preliminary No growth in 48 hours. 08/20/23 18:38 Blood Culture (Wb) - Right Forearm Blood Culture - Preliminary No growth in 48 hours. 08/20/23 18:30 Blood Culture (Wb) - Anticubital Left Blood Culture - Pre liminary No growth in 48 hours. Dosing Weight Weight used for dosin.8 kg Estimated Creatinine Clearance Estimated Creatinine Clearance: 43 Goal Trough Goal Trough: 15-20 mcg/mL Pharmacy Plan for Drug Dosing Pharmacy Plan for Drug Dosing: Vancomycin trough level of 16.2, drawn 24hrs post-dose, was within the target range of 15-20. Will continue dosing at 1000mg q24h and re-draw a trough in two days. Pharmacy Service will continue to monitor and adjust dosing as required. Follow-Up Labs Follow-Up Labs: Trough: Vancomycin Date/Time Labs Ordered Labs to be done on [date and time ordered]: 08/26/23 @2200
[2023-08-25] VITALS (7 sets, daily range): BP systolic 102–117; BP diastolic 73–87; PULSE 94–110; RESP 16–18; TEMP 36.1–36.7; O2SAT 96–100
[2023-08-25] MEDS: Piperacil/Tazobactam 3.375 GM in 0.9% Normal Saline (50mL MB+) 50 ML IV (05:45)
[2023-08-25] MEDS: Budesonide Respules 0.5 MG/2 ML AMPUL.NEB. INHALATION (07:31)
[2023-08-25] MEDS: Ipratropium/Albuterol Sulfate 3 ML AMPUL.NEB INHALATION ×3 (07:31→15:29)
--- NOTE | 2023-08-25 08:29 | PN.HOSP_ITS ---
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 Referral was made to [facility]. Awaiting evaluation Objective Data Objective Data Vital Signs: Vital Signs Temp Pulse Resp BP Pulse Ox O2 Del Method O2 Flow Rate 96.9 F L 95 18 104/80 98 High Flow 6 08/25/23 04:00 08/25/23 04:00 08/25/23 04:00 08/25/23 04:00 08/25/23 04:00 08/25/23 04:00 08/25/23 04:00 Oxygen Flow Rate (L/min) 6 Oxygen Delivery Method High Flow Weight: 39.8 kg Body Mass Index (BMI) 15.0 Intake & Output: Intake and Output for Last 24 Hours 08/23/23 08/24/23 08/25/23 23:59 23:59 23:59 Intake Total 590 / 590 1170 / 1170 350 / 350 Output Total 550 / 750 1250 / 1250 550 / 550 Balance 40 / -160 -80 / -80 -200 / -200 Medical Nutrition Assessment Dietitian: Malnutrition Criteria Met Start: 08/21/23 16:56 Freq: Status: Active Protocol: Document 08/24/23 14:01 AG (Rec: 08/24/23 14:01 Desktop) Nutrition Malnutrition Evidence of Malnutrition Exists Yes Malnutrition (severe): Chronic Evidenced By Suboptimal Energy Intake ( Severe),Weight Loss (Severe), Physical Changes (Severe) Clinical Problem Chronic Disease or Condition Related Malnutrition Etiology Severe protein-calorie malnutrition in the context of chronic disease and debility related to inadequate oral/ energy intake Signs/Symptoms as evidenced by BMI 15.1, ~10% weight loss x 6 months, PO intake meeting less than 50% estimated nutrition needs and severe muscle wasting and fat depletion in the clavicle, orbital, temporal regions and arms/legs. Status Active Problem Recommendation Dietitian Recommendations/Changes Continue liberalized regular diet as tolerated, ensure compact w/ breakfast, Thanh BID w/ lunch and dinner, 120mL ensure plus HP 4 times per day w/ medpass. Lab / Micro Data 08/24/23 05:25 08/24/23 05:25 Labs: Laboratory Results - last 24 hr 08/22/23 07:55: Diff Path Review Reviewed 08/24/23 21:40: Vancomycin Trough 16.2 H Micro: Microbiology 08/22/23 18:02 Urine Catheter - Catheter Urine Culture - Final Culture exhibits no growth. 08/21/23 09:00 Wound - Ankle Gram Stain - Final 08/21/23 09:00 Wound - Ankle Wound Culture - Final Proteus mirabilis Meth. resistant Staph. aureus 08/20/23 22:11 Blood Culture (Wb) - Anticubital Right Blood Culture - Preliminary No growth in 48 hours. 08/20/23 22:06 Blood Culture (Wb) - Left Forearm Blood Culture - Preliminary No growth in 48 hours. 08/20/23 18:38 Blood Culture (Wb) - Right Forearm Blood Culture - Preliminary No growth in 48 hours. 08/20/23 18:30 Blood Culture (Wb) - Anticubital Left Blood Culture - Preliminary No growth in 48 hours. Physical Exam Narrative GENERAL: cooperative but frail looking HEENT: Atraumatic; normocephalic EYES; Anicteric, Normal Conjunctiva NECK; supple, normal thyroid, RESPIRATORY: Diminished to auscultation CARDIOVASCULAR: Regular S1 S2, GI: soft, normoactive bowel sounds, : No Renal angle tenderness; EXTREMITIES: No edema, no clubbing, MUSCULOSKELETAL: no muscle wasting NEURO: Awake; no lateralizing signs. SKIN: No Rash PSYCH; Flat affect Assessment & Plan Assessment/Plan (1) Cellulitis of right ankle: PLAN: Plan Patient is a 77-year-old gentleman resident and attending care facility was brought to the emergency department with right ankle cellulitis without ulceration 1. Sepsis ruled out (criteria not met) 2. Right ankle cellulitis with ulceration with previous and MRSA ? Patient admitted to regular nursing floor. Imaging studies obtained on admission did show Suspected subcutaneous gas at the lateral malleolus concerning for necrotizing infection. No definitive evidence of osteomyelitis. Patient started on vancomycin and Zosyn. Consult placed to Dr. Núñez with podiatry. MRI ordered for subsequent evaluation regarding suspected osteomyelitis ? 08/22/2023; Patient seen, MRI obtained the day prior on admission demonstrated No osteomyelitis, discrete fluid collection, or drainable abscess. Patient was also seen in consultation by ID notes and recommendations review cultures were sent results pending. Osteomyelitis subsequently ruled out ? 08/23/2023; patient scheduled to undergo wound debridement ? 08/24/2023;Patient underwent wound debridement of necrotic tissue to the level of bone right lateral ankle on 08/23/2023. Wound cultures so far positive for MRSA and Proteus. Consult placed to ID.. Patient remains on Zosyn and vancomycin 3. Acute metabolic encephalopathy ?Secondary to underlying infection 4. 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 Status post chemotherapy. Patient was deemed not a candidate for radiation therapy. Currently being monitored with observation and surveillance for recurrence as outpatient by his oncologist Dr. Puentes 5. Chronic hypoxic respiratory failure ? Secondary to end-stage COPD patient is on 8 to 10 L oxygen continuously at home 6. Hypertension - Blood pressure controlled, home medications continued with dose adjustment as needed 7. Dyslipidemia -Patient is on statin therapy, continued at home dose 8. Coronary artery disease ? With previous history of non-STEMI with subsequent stent placement patient is on guideline directed medical therapy 9. 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 Physical deconditioning - Requested for PT OT eval and manager social services to assist with discharge planning 11. . Severe protein-calorie malnutrition ? In the context of chronic disease and debility related to inadequate oral/energy intake as evidenced by BMI 15.1, ~10% weight loss x 6 months, predicted PO meeting less than 50% estimated nutrition needs and severe muscle wasting and fat depletion in the clavicle, orbital, temporal regions and arms/legs. Patient was seen in consultation by dietitian notes and recommendations reviewed 12. DVT prophylaxis - On enoxaparin Overall prognosis remains poor. Patient's family requested consultation with hospice referral subsequently made by case management Time spent in the patient's overall evaluation,decision-making process, review of diagnostic data, adjustment of management, discussion with other providers, nursing nursing and ancillary staff involved in patient's care documentation, 40 Minutes Charges/Coding Visit Charges Inpatient E&M: 95383 Subs Hosp L2
[2023-08-25] MEDS: Ensure Plus High Protein 120 ML LIQUID PO (09:31)
[2023-08-25] MEDS: Aspirin E.C. 81 MG Tablet PO (09:31)
[2023-08-25] MEDS: predniSONE 5 MG Tablet 2.5 MG PO (09:31)
[2023-08-25] MEDS: Enoxaparin 40 MG/0.4 ML Syringe SC (09:31)
--- NOTE | 2023-08-25 14:58 | PCM.DC.SUM ---
Providers Date of Admission: 08/20/23 Primary Care Physician: Dr. Leonardo Lovelace MD Consultations 08/20/23 19:58 Consult: Podiatry Routine Consulting Provider: Emanuel Núñez Reason for Consult: Right ankle cellulitis with suspected osteomyelitis EMERGENT Consult: No Notified: Yes Date Notified: 08/21/23 Time Notified: 06:47 Method of Notification: Text 08/21/23 07:33 Consult: Onc/Wound/recruiting scheduler Routine Comment: Reason for Consult:: Right Ankle Necrotic wound 08/21/23 12:59 Consult: Infectious Disease Routine Consulting Provider: Baldomero Salgado Reason for Consult: Right Ankle wound EMERGENT Consult: No MD Notified: Yes Date Notified: 08/21/23 Time Notified: 12:36 Method of Notification: Answering Service 08/21/23 13:25 Consult: Vascular Surgery Routine Consulting Provider: Maxime Schultz Reason for Consult: Lateral Malleolar Ulceration with nonpalpable pedal pulses EMERGENT Consult: No MD Notified: Yes Date Notified: 08/21/23 Time Notified: 13:24 Method of Notification: Verbal Reason For Visit: SEPSIS DUE TO SEVERE RIGHT ANKLE WOUND WITH Diagnosis Discharge Diagnosis (1) Cellulitis of right ankle: Status: Acute Code(s): L03.115 - Cellulitis of right lower limb Plan Patient is a 77-year-old gentleman resident and attending care facility was brought to the emergency department with right ankle cellulitis without ulceration 1. Sepsis ruled out (criteria not met) 2. Right ankle cellulitis with ulceration with previous and MRSA ? Patient admitted to regular nursing floor. Imaging studies obtained on admission did show Suspected subcutaneous gas at the lateral malleolus concerning for necrotizing infection. No definitive evidence of osteomyelitis. Patient started on vancomycin and Zosyn. Consult placed to Dr. Núñez with podiatry. MRI ordered for subsequent evaluation regarding suspected osteomyelitis ? 08/22/2023; Patient seen, MRI obtained the day prior on admission demonstrated No osteomyelitis, discrete fluid collection, or drainable abscess. Patient was also seen in consultation by ID notes and recommendations review cultures were sent results pending. Osteomyelitis subsequently ruled out ? 08/23/2023; patient scheduled to undergo wound debridement ? 08/24/2023;Patient underwent wound debridement of necrotic tissue to the level of bone right lateral ankle on 08/23/2023. Wound cultures so far positive for MRSA and Proteus. Consult placed to ID.. Patient remains on Zosyn and vancomycin 3. Acute metabolic encephalopathy ?Secondary to underlying infection 4. 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 Status post chemotherapy. Patient was deemed not a candidate for radiation therapy. Currently being monitored with observation and surveillance for recurrence as outpatient by his oncologist Dr. Puentes 5. Chronic hypoxic respiratory failure ? Secondary to end-stage COPD patient is on 8 to 10 L oxygen continuously at home 6. Hypertension - Blood pressure controlled, home medications continued with dose adjustment as needed 7. Dyslipidemia -Patient is on statin therapy, continued at home dose 8. Coronary artery disease ? With previous history of non-STEMI with subsequent stent placement patient is on guideline directed medical therapy 9. 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 Physical deconditioning - Requested for PT OT eval and addiction social worker to assist with discharge planning 11. . Severe protein-calorie malnutrition ? In the context of chronic disease and debility related to inadequate oral/energy intake as evidenced by BMI 15.1, ~10% weight loss x 6 months, predicted PO meeting less than 50% estimated nutrition needs and severe muscle wasting and fat depletion in the clavicle, orbital, temporal regions and arms/legs. Patient was seen in consultation by dietitian notes and recommendations reviewed 12. DVT prophylaxis - On enoxaparin Overall prognosis remains poor. Patient's family requested consultation with hospice referral subsequently made by case management ? Patient was assessed and deemed an appropriate candidate for inpatient hospice for symptom management. Patient subsequently discharged and transferred to the inpatient hospice facility Medications at Discharge Home Medications nitroglycerin 0.4 mg sublingual tablet 0.4 mg sublingual PRN PRN chest pain 10/27/16 furosemide 20 mg tablet 20 mg PO DAILY #90 tabs 09/20/22 prednisone 2.5 mg tablet 2.5 mg PO DAILY #90 tabs 09/20/22 albuterol sulfate 2.5 mg/3 mL (0.083 %) solution for nebulization 2.5 mg (3 mL) inhalation Q4H PRN shortness of breath or wheezing #180 mL 11/15/22 electric/hospital bed #1 ea 02/01/23 motorized wheelchair #1 ea 02/01/23 atenolol 50 mg tablet 50 mg PO DAILY #90 tabs 03/22/23 aspirin 81 mg tablet,delayed release 81 mg PO BREAKFAST #0 tabs 07/24/23 atorvastatin 40 mg tablet 40 mg PO QHS 30 days #0 tabs 07/24/23 bisacodyl 10 mg rectal suppository 10 mg OK DAILY PRN constipation 08/20/23 buspirone 10 mg tablet 10 mg PO TID 08/20/23 fluticasone 250 mcg-salmeterol 50 mcg/dose blistr powdr for inhalation 1 inh inhalation DAILY 08/20/23 ipratropium 0.5 mg-albuterol 3 mg (2.5 mg base)/3 mL nebulization soln 3 ml inhalation Q4H PRN shortness of breath or wheezing 08/20/23 magnesium hydroxide 400 mg/5 mL oral suspension (Milk of Magnesia) 5 ml PO DAILY PRN constipation 08/20/23 multivitamin (Daily Multi-Vitamin tablet) 1 tab PO DAILY 08/20/23 Hospital Course Summary of Care Provided Minutes Spent on Discharge: 35 Medical Records Data Medical Nutrition Assessment Dietitian: Malnutrition Criteria Met Start: 08/21/23 16:56 Freq: Status: Active Protocol: Document 08/24/23 14:01 AG (Rec: 08/24/23 14:01 AG Desktop) Nutrition Malnutrition Evidence of Malnutrition Exists Yes Malnutrition (severe): Chronic Evidenced By Suboptimal Energy Intake ( Severe),Weight Loss (Severe), Physical Changes (Severe) Clinical Problem Chronic Disease or Condition Related Malnutrition Etiology Severe protein-calorie malnutrition in the context of chronic disease and debility related to inadequate oral/ energy intake Signs/Symptoms as evidenced by BMI 15.1, ~10% weight loss x 6 months, PO intake meeting less than 50% estimated nutrition needs and severe muscle wasting and fat depletion in the clavicle, orbital, temporal regions and arms/legs. Status Active Problem Recommendation Dietitian Recommendations/Changes Continue liberalized regular diet as tolerated, ensure compact w/ breakfast, Thanh BID w/ lunch and dinner, 120mL ensure plus HP 4 times per day w/ medpass. Weight / BMI Weight Weight: 39.8 kg Body Mass Index (BMI) 15.0 ABG / Lab / Microbiology Data 08/24/23 05:25 08/24/23 05:25 Laboratory: Laboratory Results - last 24 hr 08/24/23 21:40: Vancomycin Trough 16.2 H Microbiology: Microbiology 08/22/23 18:02 Urine Catheter - Catheter Urine Culture - Final Culture exhibits no growth. 08/21/23 09:00 Wound - Ankle Gram Stain - Final 08/21/23 09:00 Wound - Ankle Wound Culture - Final Proteus mirabilis Meth. resistant Staph. aureus 08/20/23 22:11 Blood Culture (Wb) - Anticubital Right Blood Culture - Preliminary No growth in 48 hours. 08/20/23 22:06 Blood Culture (Wb) - Left Forearm Blood Culture - Preliminary No growth in 48 hours. 08/20/23 18:38 Blood Culture (Wb) - Right Forearm Blood Culture - Preliminary No growth in 48 hours. 08/20/23 18:30 Blood Culture (Wb) - Anticubital Left Blood Culture - Preliminary No growth in 48 hours. Meaningful Use Info Meaningful Use Diagnoses (Choose all that apply): None applicable Discharge Plan Admission Admit Date/Time: 08/20/23 19:52 Attending Provider: Liu Hay Primary Care Provider: Leonardo Lovelace Consulting Providers: Liu Joseph; Emanuel Núñez; Baldomero Salgado; Maxime Schultz Discharge Orders/Prescriptions Prescriptions: Continued albuterol sulfate 2.5 mg /3 mL (0.083 %) solution for nebulization 2.5 mg INHALATION Q4H PRN (Reason: shortness of breath or wheezing) Qty: 180 6RF nitroglycerin 0.4 MG tablet, sublingual 0.4 mg sublingual PRN PRN (Reason: chest pain) Patient Comments: chest pain/angina multivitamin [Daily Multi-Vitamin] Tablet 1 tab PO DAILY bisacodyl 10 mg suppository 10 mg OK DAILY PRN (Reason: constipation) buspirone 10 mg tablet 10 mg PO TID fluticasone propion-salmeterol 250-50 mcg/dose blister with device 1 inh inhalation DAILY ipratropium-albuterol 0.5 mg-3 mg(2.5 mg base)/3 mL solution for nebulization 3 ml inhalation Q4H PRN (Reason: shortness of breath or wheezing) magnesium hydroxide [Milk of Magnesia] 400 mg/5 mL suspension 5 ml PO DAILY PRN (Reason: constipation) aspirin 81 mg Tablet,Delayed Release (Dr/Ec) 81 mg PO BREAKFAST Qty: 0 0RF atorvastatin 40 mg Tablet 40 mg PO QHS 30 Days Qty: 0 0RF furosemide 20 mg tablet 20 mg PO DAILY Qty: 90 3RF Hold Instructions: Resume on 07/25/23. prednisone 2.5 mg tablet 2.5 mg PO DAILY Qty: 90 3RF (DME) motorized wheelchair See Rx Instructions .Route .MEDSUPPLY Qty: 1 0RF Rx Instructions: As directed (DME) electric/hospital bed See Rx Instructions .Route .MEDSUPPLY Qty: 1 0RF Rx Instructions: As directed atenolol 50 mg tablet 50 mg PO DAILY Qty: 90 3RF Referrals / Follow Up: Leonardo Lovelace MD [Primary Care Provider] - Disposition Disposition (needs filled in before D/C Order can be placed): Hospice in Medical Facility Charges/Coding Visit Charges Inpatient E&M: 14263 Disch Hosp >30min
--- NOTE | 2023-08-25 16:38 | NURSING ---
Called report to [facility] retail shift leader, Nicole.
--- NOTE | 2023-08-27 10:12 | CASEMGMT ---
Discharge Planning [facility] updated that patient admitted to [facility]. Eli Trujillo, Discharge Planning Asst.
== END 2023-08-25 17:17 | disposition hospice, inpatient (51) | DRG 573 ==
LOC: ED 19:47 → PCU 20:15
PROVIDERS: Anesthesiology; Student in an Organized Health Care Education/Training Program; Admitting Provider Internal Medicine; Emergency Provider Emergency Medicine; PCP Family Medicine; Visit Provider Internal Medicine
PROC: 0YBK0ZZ Excision of Right Ankle Region, Open Approach (ICD-10-PCS; principal; 2023-08-23 11:50)
DX: L03.115 Cellulitis of right lower limb (principal); G93.41 Metabolic encephalopathy; E43 Unspecified severe protein-calorie malnutrition; J96.11 Chronic respiratory failure with hypoxia; L97.314 Non-pressure chronic ulcer of right ankle with necrosis of bone; E51.2 Wernicke's encephalopathy; Z68.1 Body mass index [BMI] 19.9 or less, adult; I73.9 Peripheral vascular disease, unspecified; J44.9 Chronic obstructive pulmonary disease, unspecified; L98.494 Non-pressure chronic ulcer of skin of other sites with necrosis of bone; I10 Essential (primary) hypertension; E78.5 Hyperlipidemia, unspecified; I25.10 Atherosclerotic heart disease of native coronary artery without angina pectoris; L89.509 Pressure ulcer of unspecified ankle, unspecified stage; R26.2 Difficulty in walking, not elsewhere classified; Z79.82 Long term (current) use of aspirin; R53.81 Other malaise; Z87.891 Personal history of nicotine dependence; Z66 Do not resuscitate; Z92.21 Personal history of antineoplastic chemotherapy; B95.62 Methicillin resistant Staphylococcus aureus infection as the cause of diseases classified elsewhere; Z51.5 Encounter for palliative care; Z85.118 Personal history of other malignant neoplasm of bronchus and lung
CPT/HCPCS: 36415; 73610; 73721; 75635; 80048; 80202; 82607; 82746; 83605; 83735; 84100; 84443; 85025; 85610; 85652; 85730; 86141; 86850; 86900; 86901; 87040; 87070; 87077; 87086; 87186; 87205; 87640; 93005; 94640; 94762; 97162; 97166; 97530; 97535; 97802; 97803; 99285; 99406; J7030; J7040; Q9967; A4216